=== PATIENT | female | born 1935 | race Caucasian/White ===

== ENCOUNTER → 2019-03-03 | Outpatient (CLI) | payer MEDICARE ==
--- NOTE | 2019-03-03 12:48 | Diagnostic Imaging Report ---
INDICATION: Right hip pain. TIME OF EXAMINATION: 11:13 AM. TECHNIQUE: Two views of the right hip were obtained. FINDINGS: The femoroacetabular alignment is normal. The femoral head and neck are intact. No fractures are seen. IMPRESSION: No acute bony abnormality is detected. Dictated by: Dictated on workstation # [id number]
--- NOTE | 2019-03-03 15:15 | Diagnostic Imaging Report ---
INDICATION: Chronic left knee pain. TIME OF EXAMINATION: 11:15 AM. TECHNIQUE: Multiple views of the left knee were obtained. FINDINGS: Tricompartmental degenerative changes are noted. There is joint space narrowing and marginal spurring. No fracture or dislocation is seen. There is no effusion. IMPRESSION: Tricompartmental degenerative change. No acute bony abnormality is detected. Dictated by: Dictated on workstation # [id number]
== END ==
LOC: RAD FS 11:00
PROVIDERS: ATTEND Nurse Practitioner
DX: M17.12 Unilateral primary osteoarthritis, left knee (principal); M25.551 Pain in right hip
CPT/HCPCS: 73502; 73562

== ENCOUNTER → 2019-04-04 | Outpatient (CLI) | payer MEDICARE ==
--- NOTE | 2019-04-04 15:43 | Diagnostic Imaging Report ---
INDICATION: Chronic left hip pain. Time of exam 2:06 p.m. FINDINGS: Multiple views of the left hip show normal femoral acetabular alignment. Joint spaces are well-maintained. The femoral head and neck appear to be intact. No fractures are seen. IMPRESSION: No acute bony abnormality is detected. Dictated by: Dictated on workstation # [id number]
== END ==
LOC: RAD FS 13:53
PROVIDERS: ATTEND Nurse Practitioner
DX: M16.12 Unilateral primary osteoarthritis, left hip (principal)
CPT/HCPCS: 73502

== ENCOUNTER 2020-04-30 08:18 | Emergency (ER) | payer MEDICARE ==
[~2020-04-30] VITALS: Ht 167.7 cm; Wt 90.0 kg
--- NOTE | 2020-04-30 08:18 | NUR ---
PT ARRIVAL TO ED SEE TRIAGE NOTES. PT AROUSES TO NAME WITH EYE OPENING. PT IS [place].
--- NOTE | 2020-04-30 08:25 | ED General ---
General Stated Complaint: HYPOXIA Source of Information: EMS History of Present Illness Date Seen by Provider: Apr 30, 2020 Time Seen by Provider: 08:24 Initial Comments Patient is brought to the emergency department by EMS from the senior living where she stays. She was reportedly found by senior living staff to be hypoxic and not wearing her oxygen. Her oxygen level was reported to be 65%. On arrival to the ER, there is little additional history available. Patient is awake and alert but not answering questions. She seems to have some abdominal distention and tenderness to palpation on physical exam. She also has reports of recent GI bleeding from senior living staff. Allergies and Home Medications Allergies Coded Allergies: Sulfa (Sulfonamide Antibiotics) (Verified Allergy, Unknown, 04/30/20) Patient Home Medication List Home Medication List Reviewed: Yes Review of Systems Review of Systems Constitutional: no symptoms reported EENTM: no symptoms reported Respiratory: no symptoms reported Cardiovascular: no symptoms reported Genitourinary: no symptoms reported Musculoskeletal: no symptoms reported Skin: no symptoms reported Psychiatric/Neurological: No Symptoms Reported Hematologic/Lymphatic: No Symptoms Reported All Other Systems Reviewed Negative Unless Noted: Yes Physical Exam Vital Signs Vital Signs - First Documented 04/30/20 08:18 Temp 40.3 Pulse 125 Resp 28 B/P (MAP) 177/86 (116) Pulse Ox 79 O2 Delivery Non Rebreather O2 Flow Rate 15.00 Capillary Refill : Height, Weight, BMI Height: '" Weight: lbs. oz. kg; BMI Method: General Appearance: Other (patient is awake, she is anxious and tachypnea With mild increased work of breathing) HEENT: PERRL/EOMI Neck: Supple Respiratory: Other (few scattered wheezes in lower lung erickson but overall good air movement) Cardiovascular: Normal Peripheral Pulses, Other (irregular tachycardic rhythm) Gastrointestinal: Other (abdomen is firm and tender to palpation) Rectal: Other (brown stool is present. No local infection is seen in the groin or perineum. Patient is guaiac positive for blood but no red blood is seen) Back: Normal Inspection Extremity: Normal Capillary Refill, Other (1-2+ edema bilateral lower extremities. Equal pulses bilaterally.) Neurologic/Psychiatric: Alert, No Motor/Sensory Deficits (alert and answering some questions. Does not answer orientation questions. Protecting airway. No facial asymmetry. Moving all extremities.) Skin: Warm/Dry Focused Exam Lactate Level 04/30/20 08:30: Lactic Acid Level 3.32*H 04/30/20 10:20: Lactic Acid Level 1.38 Lactic Acid Level Laboratory Tests Test 04/30/20 10:20 Lactic Acid Level 1.38 MMOL/L (0.50-2.00) Progress/Results/Core Measures Suspected Sepsis SIRS Temperature: Pulse: Respiratory Rate: Laboratory Tests 04/30/20 08:30: White Blood Count 9.9 Blood Pressure / Mean: 04/30/20 08:30: Lactic Acid Level 3.32*H 04/30/20 10:20: Lactic Acid Level 1.38 Laboratory Tests 04/30/20 08:30: Creatinine 0.80, INR Comment 2.3H, Platelet Count 273, Total Bilirubin 0.7 Results/Orders Lab Results Laboratory Tests Test 04/30/20 08:30 04/30/20 08:45 04/30/20 10:20 Range/Units White Blood Count 9.9 4.3-11.0 10^3/uL Red Blood Count 4.23 L 4.35-5.85 10^6/uL Hemoglobin 11.3 L 11.5-16.0 G/DL Hematocrit 39 35-52 % Mean Corpuscular Volume 92 80-99 FL Mean Corpuscular Hemoglobin 27 25-34 PG Mean Corpuscular Hemoglobin Concent 29 L 32-36 G/DL Red Cell Distribution Width 17.1 H 10.0-14.5 % Platelet Count 273 130-400 10^3/uL Mean Platelet Volume 8.7 7.4-10.4 FL Neutrophils (%) (Auto) 85 H 42-75 % Lymphocytes (%) (Auto) 112 H 12-44 % Monocytes (%) (Auto) 1 0-12 % Eosinophils (%) (Auto) 1 0-10 % Basophils (%) (Auto) 0 0-10 % Neutrophils # (Auto) 8.4 H 1.8-7.8 X 10^3 Lymphocytes # (Auto) 1.2 1.0-4.0 X 10^3 Monocytes # (Auto) 0.1 0.0-1.0 X 10^3 Eosinophils # (Auto) 0.1 0.0-0.3 10^3/uL Basophils # (Auto) 0.0 0.0-0.1 10^3/uL Prothrombin Time 25.3 H 12.2-14.7 SEC INR Comment 2.3 H 0.8-1.4 Activated Partial Thromboplast Time 32 24-35 SEC Sodium Level 142 135-145 MMOL/L Potassium Level 4.3 3.6-5.0 MMOL/L Chloride Level 95 L 98-107 MMOL/L Carbon Dioxide Level 35 H 21-32 MMOL/L Anion Gap 12 5-14 MMOL/L Blood Urea Nitrogen 15 7-18 MG/DL Creatinine 0.80 0.60-1.30 MG/DL Estimat Glomerular Filtration Rate > 60 BUN/Creatinine Ratio 19 Glucose Level 135 H 70-105 MG/DL Lactic Acid Level 3.32 *H 1.38 0.50-2.00 MMOL/L Calcium Level 10.0 8.5-10.1 MG/DL Corrected Calcium 9.7 8.5-10.1 MG/DL Total Bilirubin 0.7 0.1-1.0 MG/DL Aspartate Amino Transf (AST/SGOT) 29 5-34 U/L Alanine Aminotransferase (ALT/SGPT) 21 0-55 U/L Alkaline Phosphatase 69 40-136 U/L Troponin I < 0.30 <0.30 NG/ML Pro-B-Type Natriuretic Peptide 2921.0 H <75.0 PG/ML Total Protein 7.7 6.4-8.2 GM/DL Albumin 4.4 3.2-4.5 GM/DL Urine Color BROWN H Urine Clarity CLOUDY Urine pH 7.5 5-9 Urine Specific Chloe 1.020 1.016-1.022 Urine Protein 3+ H NEGATIVE Urine Glucose (UA) NEGATIVE NEGATIVE Urine Ketones NEGATIVE NEGATIVE Urine Nitrite POSITIVE H NEGATIVE Urine Bilirubin 1+ H NEGATIVE Urine Urobilinogen 0.2 < = 1.0 MG/DL Urine Leukocyte Esterase 2+ H NEGATIVE Urine RBC (Auto) 3+ H NEGATIVE Urine RBC TNTC H /HPF Urine WBC 10-25 H /HPF Urine Crystals NONE /LPF Urine Bacteria MODERATE H /HPF Urine Casts NONE /LPF Urine Mucus NEGATIVE /LPF Urine Culture Indicated YES My Orders Orders - DEBBIE BEE DO Ed Iv/Invasive Line Start (04/30/20 08:25) Cbc With Automated Diff (04/30/20 08:25) Comprehensive Metabolic Panel (04/30/20 08:25) Lactic Acid Analyzer (04/30/20 08:25) Troponin I Fs (04/30/20 08:25) Probnp Fs (04/30/20 08:25) Protime With Inr (04/30/20 08:25) Partial Thromboplastin Time (04/30/20 08:25) Urinalysis (04/30/20 08:28) Corral Cath (04/30/20 08:28) Ct Head Wo (04/30/20 08:28) Ct Abdomen/Pelvis W (04/30/20 08:28) Blood Culture (04/30/20 08:30) Blood Culture (04/30/20 08:30) Procalcitonin (Pct) (04/30/20 08:30) Ns Iv 1000 Ml (Sodium Chloride 0.9%) (04/30/20 08:45) Acetaminophen Suppository (Tylenol Suppo (04/30/20 08:45) Coronavirus Sars-Cov-2 So 2018 (04/30/20 08:44) Albuterol/Ipra Inhalation Soln (Duoneb I (04/30/20 09:00) Svn Small Volume Nebulizer (04/30/20 08:51) Chest 1 View Ap/Pa Only (04/30/20 08:59) Iohexol Injection (Omnipaque 350 Mg/Ml 1 (04/30/20 09:15) Received Contrast (Hold Metformin- Contr (04/30/20 09:15) Sodium Chloride Flush (Catheter Flush Sy (04/30/20 09:15) Ns (Ivpb) (Sodium Chloride 0.9% Ivpb Bag (04/30/20 09:15) Urine Culture (04/30/20 08:45) Ketorolac Injection (Toradol Injection) (04/30/20 09:30) Ns Iv 1000 Ml (Sodium Chloride 0.9%) (04/30/20 09:30) Ceftriaxone For Iv Use (Rocephin For I (04/30/20 09:45) Vancomycin Injection (Vancomycin Injecti (04/30/20 10:45) Piperacillin Sodium/Tazobactam (Zosyn Vi (04/30/20 10:45) Furosemide Injection (Lasix Injection) (04/30/20 10:45) Ns Iv 1000 Ml (Sodium Chloride 0.9%) (04/30/20 11:30) Ns Iv 500 Ml (Sodium Chloride 0.9%) (04/30/20 12:15) Norepinephrine 4 Mg/250 Ml (Norepinephri (04/30/20 12:15) Medications Given in ED Current Medications Medications Dose Ordered Sig/Rudi Route Start Time Stop Time Status Last Admin Dose Admin Acetaminophen 975 mg ONCE ONCE [place] 04/30/20 08:45 04/30/20 08:46 DC 04/30/20 08:44 975 MG Albuterol/ Ipratropium 3 ml ONCE ONCE INH 04/30/20 09:00 04/30/20 09:01 DC 04/30/20 10:01 3 ML Ceftriaxone Sodium 2000 mg/ Sterile Water 20 ml @ 240 mls/hr ONCE ONCE IV 04/30/20 09:45 04/30/20 09:49 DC 04/30/20 10:01 240 MLS/HR Furosemide 40 mg ONCE ONCE IVP 04/30/20 10:45 04/30/20 10:46 DC 04/30/20 11:26 40 MG Iohexol 100 ml ONCE ONCE IV 04/30/20 09:15 04/30/20 09:16 DC 04/30/20 09:49 100 ML Ketorolac Tromethamine 15 mg ONCE ONCE IVP 04/30/20 09:30 04/30/20 09:31 DC 04/30/20 10:01 15 MG Piperacillin Sod/ Tazobactam Sod 4.5 gm/Sodium Chloride 100 ml @ 200 mls/hr ONCE ONCE IV 04/30/20 10:45 04/30/20 11:14 DC 04/30/20 11:15 200 MLS/HR Sodium Chloride 10 ml NEEDED PRN IV 04/30/20 09:15 04/30/20 09:49 10 ML Sodium Chloride 100 ml ONCE ONCE IV 04/30/20 09:15 04/30/20 09:16 DC 04/30/20 09:49 100 ML Vancomycin HCl 1500 mg/Sodium Chloride 500 ml @ 257.5 mls/ hr ONCE ONCE IV 04/30/20 10:45 04/30/20 12:41 DC 04/30/20 11:16 257.5 MLS/HR Vital Signs/I&O 04/30/20 04/30/20 04/30/20 04/30/20 08:18 08:44 10:15 11:45 Temp 40.3 40.3 39.1 39.6 Pulse 125 Resp 28 B/P (MAP) 177/86 (116) Pulse Ox 79 O2 Delivery Non Rebreather O2 Flow Rate 15.00 04/30/20 12:35 Pulse 113 B/P (MAP) 84/40 Capillary Refill : Progress Note : Time: 09:02 Progress Note Patient is seen and examined on arrival to her room. Patient is somewhat confused but does answer simple yes no questions. She is protecting her airway. She has mild increased work of breathing. Her abdomen is tender to palpation. Rectal temperature is performed and she has temperature over 104. Sepsis is suspected as cause for presentation. Patient is ordered and have 2 IVs and immediately IV fluid resuscitation. Will Pl[address] Corral catheter to collect urine and chest x-ray. Heart rate is atrial fibrillation which she is known to have wi th a rate in the 120s. We'll check PT/INR. 10:00: Patient now returns from CT scan. She is more awake and alert. She is answering questions appropriately. Rigors are resolving. Heart rate averaging 108 in atrial fibrillation. Much improved. Denies pain. Additional hx now available from her daughter via telephone. Patient had been baseline health until about a week ago. Her daughter reports that she had a urine test done at that time which was reportedly negative. She had been complaining to her daughte r that she noticed streaking of blood on tissue after she would wipe. She had also recently had increase in oxygen therapy at home as she had been having some hypoxia or worsening dyspnea. Today, she was found to have change in mental status by nursing staff. Patient is currently much improved. Her temperature is down to 102.5. She is awake and answering questions appropriately. IV fluids are continued. I discussed the need for admission with the patient. Also with her daughter. They initially request to be transferred to [facility]. I contacted the transfer center at that hospital but there are no beds available. Following t hat, her family requested that she go to [facility] in [place] but they also have no beds available. Following this, daughter request transferred to [facility]. I contacted the transfer line at 10:15 AM. 11:20: Patient is accepted for transfer to [facility] by Dr. Macias. Room assignment is received. Patient is currently doing very well. She is sleeping but awakens easily and answers questions appropriate. Heart rate is 108. Temperature is still trending down. She is agreeable to the transfer plan of care as is her daughter. Patient is given some Lasix. IV fluids are continued for goal bolus of 30 mL/kg. CT scan of the abdomen is completely and notable for hydronephrosis on the right but no stone. Also questionable ureteral mass. These findings were discussed with the receiving facility. Incidentally, bilateral basilar infiltrates were noted on CT imaging which were not present on chest x- ray. Vancomycin and Zosyn are ordered with this new finding. Patient is stable for transfer to . 11:45: Rectal temperature now down to 101. Patient awakes and answers questions appropriately. Again, she appears much improved. She has brisk capillary refill. She does not currently have any complaints. It is noted, however, that her blood pressure has trended downward. She is currently 87/45. Her heart rate is 106. She has had 2 L of normal saline bolus. She is receiving vancomycin currently in an additional 500 mls of fluid. She is also receiving Zosyn and a 100 ml bag. Her goal fluid resuscitation is 2700 mL for a 90 kg weight. Will observe her blood pressure closely. Although her pressure is trending downward, she is clinically doing much better. 12:50: Up-to-date: Despite that patient clinically appears much improved, she has had declining blood pressures. Ranging from low 80s to 90s over the last hour. Decision was made to place patient on levothyroid drip. I notified [facility] and patient was moved from telemetry to ICU bed. Accepting physician was Dr. Bishop. After David fed started at lowest dose, blood pressure now averaging in the low 100s systolic. Patient is stable for transfer. EMS is present ECG Initial ECG Impression Date: Apr 30, 2020 Initial ECG Impression Time: 09:03 Initial ECG Rate: 130 Initial ECG Rhythm: A Fib/Flutter Initial ECG Impression: Atrial Fibrillation, Atrial Fibrillation w/RVR Departure Impression Primary Impression: Pneumonia Additional Impressions: Sepsis Urinary tract infection Disposition: XF [facility] Condition: Improved Transfer Transfer Reason: Patient preference Time Spoke to Accepting Phy: 10:[address] Macias at [facility] Dr. Bishop Transfer Time: 12:00 Transfer Facility: [facility] Method of Transfer: EMS Departure-Patient Inst. Referrals: [facility] (PCP) Primary Care Physician CHUN AARON (Family) Primary Care Physician DEBBIE BEE DO Apr 30, 2020 08:25
[2020-04-30 08:45] LABS: BASOPHILS % (AUTO) 0 % (0-10); EOSINOPHILS # (AUTO) 0.1 10^3/uL (0.0-0.3); EOSINOPHILS % (AUTO) 1 % (0-10); HEMATOCRIT 39 % (35-52); HEMOGLOBIN 11.3 G/DL (11.5-16.0); LYMPHOCYTES # (AUTO) 1.2 X 10^3 (1.0-4.0); LYMPHOCYTES % (AUTO) 112 % (12-44); MEAN CORPUSCULAR HEMOGLOBIN 27 PG (25-34); MEAN CORPUSCULAR HGB CONC 29 G/DL (32-36); MEAN CORPUSCULAR VOLUME 92 FL (80-99); MEAN PLATELET VOLUME 8.7 FL (7.4-10.4); MONOCYTES # (AUTO) 0.1 X 10^3 (0.0-1.0); MONOCYTES % (AUTO) 1 % (0-12); NEUTROPHILS # (AUTO) 8.4 X 10^3 (1.8-7.8); NEUTROPHILS % (AUTO) 85 % (42-75); PLATELET COUNT 273 10^3/uL (130-400); WHITE BLOOD COUNT 9.9 10^3/uL (4.3-11.0)
[2020-04-30] MEDS ORDERED: NS IV 1000 ML 1,000 ML IV SCH ×2 (08:45→09:30)
[2020-04-30] MEDS ORDERED: ACETAMINOPHEN 650 MG SUPP (TYLENOL) PR ONE (08:45)
[2020-04-30 08:56] LABS: INR 2.3 (0.8-1.4); PROTHROMBIN TIME PATIENT 25.3 SEC (12.2-14.7)
[2020-04-30] MEDS ORDERED: RT-ALBUTEROL/IPRATROPIUM 3 ML (DUONEB) VIAL INH ONE (09:00)
[2020-04-30 09:12] LABS: ALANINE AMINOTRANSFERASE 21 U/L (0-55); ALKALINE PHOSPHATASE 69 U/L (40-136); BILIRUBIN,TOTAL 0.7 MG/DL (0.1-1.0); BUN/CREATININE RATIO 19; CARBON DIOXIDE 35 MMOL/L (21-32); CHLORIDE 95 MMOL/L (98-107); GFR ESTIMATED > 60; GLUCOSE 135 MG/DL (70-105); POTASSIUM 4.3 MMOL/L (3.6-5.0); SODIUM 142 MMOL/L (135-145)
[2020-04-30 09:13] LABS: ALBUMIN 4.4 GM/DL (3.2-4.5); TOTAL PROTEIN 7.7 GM/DL (6.4-8.2)
[2020-04-30] MEDS ORDERED: CATHETER FLUSH 10 ML SYR IV PRN (09:15)
[2020-04-30] MEDS ORDERED: NS 100 ML (IVPB) BAG IV ONE (09:15)
[2020-04-30] MEDS ORDERED: IOHEXOL 350 MG/ML 100 ML (OMNIPAQUE 350) VIAL IV ONE (09:15)
[2020-04-30] MEDS ORDERED: HOLD METFORMIN - RECEIVED CONTRAST 20 ML VIAL IV SCH (09:15)
[2020-04-30 09:17] LABS: CLARITY,URINE CLOUDY; COLOR,URINE BROWN; GLUCOSE, URINE (UA) NEGATIVE (NEGATIVE); KETONES,URINE NEGATIVE (NEGATIVE); NITRITE,URINE POSITIVE (NEGATIVE); PH,URINE 7.5 (5-9); PROTEIN,URINE 3+ (NEGATIVE)
[2020-04-30 09:18] LABS: BACTERIA,URINE MODERATE /HPF; BILIRUBIN,URINE 1+ (NEGATIVE); LEUKOCYTE ESTERASE ,URINE 2+ (NEGATIVE); RBC,URINE TNTC /HPF
[2020-04-30] MEDS ORDERED: cefTRIAXone FOR IV USE 1,000 MG in WATER (STERILE) FOR INJECTION 10 ML IV ONE (09:30)
[2020-04-30] MEDS ORDERED: KETOROLAC 30 MG/ML VIAL IVP ONE (09:30)
[2020-04-30] MEDS ORDERED: cefTRIAXone FOR IV USE 2,000 MG in WATER (STERILE) FOR INJECTION 20 ML IV ONE (09:45)
--- NOTE | 2020-04-30 09:56 | Diagnostic Imaging Report ---
PROCEDURE: CT head without contrast. TECHNIQUE: Multiple contiguous axial images were obtained through the brain without the use of intravenous contrast. Auto Exposure Controls were utilized during the CT exam to meet ALARA standards for radiation dose reduction. INDICATION: Altered mental status FINDINGS: There is prominence of the ventricles and sulci. There is no hydrocephalus or cerebral edema. There is no midline shift or mass-effect. There is no intracranial mass, hemorrhage, or extra-axial fluid collection. There is some diffuse decreased attenuation of the periventricular white matter which is nonspecific. The visualized paranasal sinuses and mastoid air cells are clear. There are no regional areas of decreased attenuation appreciated to suggest an acute CVA. IMPRESSION: 1. No acute intracranial process. 2. Age-appropriate atrophy. 3. Decreased attenuation of the periventricular white matter which is nonspecific, however, likely reflects senescent change and/or chronic small vessel ischemic disease. Dictated by: Dictated on workstation # [id number]
--- NOTE | 2020-04-30 10:00 | NUR ---
SPEAKING WITH FAMILY VIA PHONE, NUMEROUS CALLS FROM FAMILY WITH REPORT GIVEN AT THIS TIME. UPDATE WAS GIVEN EARLIER BY ANCILLARY STAFF OF RN'S BUSY AND PT GETTING LABS, XRAYS, AND CT. THE DGT WANTS TO GIVE DETAILED PAST MEDICAL HX AND 2 RN'S WERE UNAVAILABLE TO COME TO PHONE ER BUSY. FAMILY REPORT ADAMANT TO SPEAK AND WILL WAIT FOR THIS RETURN CALL. VERBALIZATION OF DISSATISFACTION OF NO FAMILY PRESENCE IN ER'S. THE INABILITY TO SIT IN A WAITING ROOM, AND THE REFUSAL OF VISITORS TO ENTER BUILDING TO TRY TO USE A BATHROOM.
--- NOTE | 2020-04-30 10:24 | Diagnostic Imaging Report ---
PROCEDURE: CT abdomen and pelvis with contrast. TECHNIQUE: Multiple contiguous axial images were obtained through the abdomen and pelvis after administration of intravenous contrast. Auto Exposure Controls were utilized during the CT exam to meet ALARA standards for radiation dose reduction. INDICATION: Hematuria, sepsis, hypoxia FINDINGS: There is cardiomegaly. There are patchy bibasal infiltrates. The liver is normal in size without focal lesions. Gallbladder is unremarkable. There is no biliary ductal dilatation. Spleen is normal. The pancreas and adrenal glands are unremarkable. Right kidney is normal. There is severe left hydronephrosis. No definite stone is appreciated. There is a filter in the IVC. Aorta is nonaneurysmal. The bowel gas pattern is nonspecific. There is diverticular disease. There is a Corral catheter in the bladder. There is no free air. There is no ascites. There are no focal inflammatory changes. There are degenerative changes in the spine. IMPRESSION: Severe left hydronephrosis without evidence of underlying stone. Possibility of a ureteral mass certainly cannot be excluded. Recommend clinical correlation. Diverticular disease without evidence of diverticulitis. Patchy bibasal pulmonary infiltrates. Cardiomegaly. Severe degenerative changes in the lumbar spine. Dictated by: Dictated on workstation # [id number]
--- NOTE | 2020-04-30 10:25 | Diagnostic Imaging Report ---
INDICATION: Fever and sepsis. FINDINGS: There is cardiomegaly. There is mild venous congestion. There is a small left pleural effusion. There is no pneumothorax. The mediastinum is unremarkable. IMPRESSION: Cardiomegaly and mild venous congestion with small left pleural effusion. Dictated by: Dictated on workstation # [id number]
[2020-04-30] MEDS ORDERED: FUROSEMIDE 40 MG/4 ML INJ (LASIX) IVP ONE (10:45)
[2020-04-30] MEDS ORDERED: VANCOMYCIN INJECTION 1,500 MG in NS IV 500 ML 500 ML IV ONE (10:45)
[2020-04-30] MEDS ORDERED: PIPERACILLIN SODIUM/TAZOBACTAM 4.5 GM in NS (IVPB) 100 ML IV ONE (10:45)
--- NOTE | 2020-04-30 10:45 | NUR ---
PT ENDED 2ND BOLUS AND NIBP NOTED TRENDING DOWN. NOTIFIED
--- NOTE | 2020-04-30 11:40 | NUR ---
KEBEDE EMPTIED OF 125 ML URINE PRE-LASIX
--- NOTE | 2020-04-30 12:00 | NUR ---
EMS HERE, DR BEE INTO WITH RN. NIBP PERSISTANT HYPOTESIVE WITH PT ASYMPTOMATIC.
--- NOTE | 2020-04-30 12:10 | NUR ---
EMS DIVERTED TO BEING STILL [employer] BUT CHANGE OF STABILIZATION PLAN AND NEED TO CONTACT [facility] FOR HIGHTER LEVEL INTENSITY.
[2020-04-30] MEDS ORDERED: NS IV 500 ML 500 ML IV SCH (12:15)
[2020-04-30] MEDS ORDERED: NOREPINEPHRINE 4 MG/250 ML 250 ML IV SCH (12:15)
--- NOTE | 2020-04-30 12:30 | NUR ---
CALL COMPLETED WITH DR TO [facility] TO NOTIFY PLAN OF HANGING LEVOPHED FOR HYPOTENSION POST FLUID BOLUSES AND WITH ANTIBIOTIC REGIMEN AND RN STARTING A 3RD IV BIGGER BORE MORE CENTRALLY TO RUN THE LEVOPHED PERIPHERALLY TEMPROARILY. 18 GA TO LAC. CALL CENTER RE-ROUTED DR TO A DIFFERENT HOSPITALIST FOR ADMISSION PLAN TO ICU LEVEL AND ICU BED NUMBER BEING GIVEN [facility] WANTING PT SOON POSSIBLE.
[2020-04-30] MEDS: NS IV 1000 ML 1,000 ML IV SCH (12:34)
--- NOTE | 2020-04-30 12:50 | NUR ---
EMS ARRIVING FOR TRANSFER
--- NOTE | 2020-04-30 12:50 | NUR ---
SPOKE WITH PT'S DPOA DGTS: SUDEEP LOPEZ AND MARIE NAYAK. UPDATE GIVEN ABOUT CHANGE IN VITALS WITH HYPOTENSIVE BUT STABILZING SAO2 READINGS. PT IS MORE ALERT NOW. KEBEDE PATENT WITH LOW OUTPUT POST BOLUSES. EXPLAINED CHANGE TO AN ICU BED AND DIVERTING EMS UNTIL [facility] REPORTED NEW RM PLACEMENT FOR ICU. HAD DGTS COME TO REGISTRATION TO WEB SPECIALIST 3 RINGS, LIFE ALERT BUTTON, PA EARRINGS, AND CLOTHING. LEFT PT'S COMPRESSION SOCKS ON AND HER GLASSES WITH PT GOWN. KEBEDE IS IN PLACE.
[2020-04-30 13:05] VITALS: BP 142/54
--- NOTE | 2020-04-30 13:05 | NUR ---
DEPARTING AT THIS TIME TO [facility] VIA [facility], MICT PRESENT FOR THIS ALS TRANSFER WITH LEVOPHED AND VANCOMYCIN INFUSION WITH NS INFUSING AT 150/HR WITH LEVOPHED LINE. PT HAS DGTS APPROACHING AMBULANCE THEY LOAD PT TO SEE HER AND CONVEY THEIR MESSAGES.
== END 2020-04-30 13:05 | disposition short-term general hospital (02) ==
LOC: EDUNIT# 08:21 → ER FS 08:22
DX: J18.9 Pneumonia, unspecified organism (principal); N39.0 Urinary tract infection, site not specified; A41.9 Sepsis, unspecified organism; F41.9 Anxiety disorder, unspecified; Z88.2 Allergy status to sulfonamides; Z20.828 Contact with and (suspected) exposure to other viral communicable diseases
CPT/HCPCS: 36415; 51702; 70450; 71045; 74177; 80053; 81000; 83605; 83880; 84145; 84484; 85025; 85610; 85730; 87040; 87088; 94640; 99292; U0002; 87077; 87635; 99291

== ENCOUNTER → 2020-08-16 | Outpatient (CLI) | payer MEDICARE ==
[~2020-08-16] VITALS: Ht 163 cm; Wt 80.0 kg
[~2020-08-16] MED LIST: BAMLANIVIMAB 700 MG in NS 200 ML IV ONE; EPINEPHrine INJECTION 1 MG/ML AMP IM PRN; diphenhydrAMINE 50 MG/ML INJ (BENADRYL) IV PRN
[2020-08-16 08:30] VITALS: BP 163/84
[2020-08-16 11:00] VITALS: BP 136/76
== END ==
LOC: INFUSION 08:32
PROVIDERS: ATTEND Family Medicine
DX: U07.1 COVID-19 (principal)

== ENCOUNTER 2021-01-03 10:19 | Inpatient (IN) | payer MEDICARE ==
[~2021-01-03] VITALS: Ht 162.5 cm; Wt 80.5 kg
--- NOTE | 2021-01-03 10:38 | ED General ---
General Stated Complaint: ABD PAIN Source of Information: Patient, EMS, Long Term Records History of Present Illness Date Seen by Provider: January 03, 2021 Time Seen by Provider: 10:21 Initial Comments 85-year-old female presenting with complaints of cough and shortness of breath. EMS brought her from [facility] after having been called for abdominal pain. Patient denies any abdominal or chest pain. She states that she has been coughing and is more short of breath. She was hypoxic for EMS and required O2 by nonrebreather to help bring her up above 90%. She does have chronic atrial fibrillation and is on warfarin. She has tremors and chills. She is not answering all questions appropriately. She is only oriented to self. She thinks that she is in [place] and not [place]. She did get her second Covid shot yesterday. The [facility] was not sure which brand of Covid shot it was. Associated Systoms: No Chest Pain; Cough; No Diaphoresis; Fever/Chills; No H eadaches; Loss of Appetite, Malaise; No Nausea/Vomiting, No Rash, No Seizure; Shortness of Air, Weakness (general) Allergies and Home Medications Allergies Coded Allergies: Sulfa (Sulfonamide Antibiotics) (Verified Allergy, Unknown, 04/30/20) Patient Home Medication List Home Medication List Reviewed: Yes Review of Systems Review of Systems Constitutional: chills; No diaphoresis; fever (37.7 C on arrival), malaise, weakness EENTM: no symptoms reported Respiratory: cough; No phlegm; short of breath Cardiovascular: No chest pain Gastrointestinal: No abdominal pain, No nausea, No vomiting Genitourinary: dysuria Musculoskeletal: no symptoms reported Skin: no symptoms reported Psychiatric/Neurological: Denies Headache; Weakness (general) Hematologic/Lymphatic: Denies Blood Clots Immunological/Allergic: no symptoms reported Past Bwzthnn-Isjsvt-Qzfqoa Hx Past Med/Social Hx: Reviewed Nursing Past Med/Soc Hx Patient Social History Recent Hopitalizations: No Seasonal Allergies Seasonal Allergies: No Past Medical History Surgeries: Yes (poor historian) Respiratory: Yes (chronic hypoxia (requires high flow O2)) Atrial Fibrillation, Deep Vein Thrombosis, Hypertension Neurological: No Genitourinary: Yes (Hx Urosepsis) UTI-Chronic Musculoskeletal: Yes (On Xeljanz and Prednisone (off IV txs thru COVID)) Rheumatoid Arthritis Endocrine: Yes Hypothyroidsim HEENT: No Cancer: No Psychosocial: No Blood Disorders: No Physical Exam Vital Signs Vital Signs - First Documented Capillary Refill : Height, Weight, BMI Height: '" Weight: lbs. oz. kg; 32.00 BMI Method: General Appearance: Anxious, Moderate Distress, Other (diffuse tremors) HEENT: No Moist Mucous Membranes (dry mucus membranes) Respiratory: Chest Non Tender, Accessory Muscle Use, Crackles, Decreased Breath Sounds, Respiratory Distress; No Stridor, No Wheezing Cardiovascular: Irregularly Irregular, Tachycardia Gastrointestinal: Normal Bowel Sounds, No Pulsatile Mass, Non Tender, Soft Rectal: Deferred Extremity: Normal Capillary Refill, Pedal Edema (1+ BLE pedal edema) Neurologic/Psychiatric: Alert; No Oriented x3 (oriented to self only); oracle database manager II- XII Norm as Tested Skin: Normal Color, Warm/Dry Lymphatic: No Adenopathy Focused Exam Sepsis Stage: Sepsis Possible Source: Genitouriary Lactate Level 01/03/21 10:35: Lactic Acid Level 2.90*H 01/03/21 11:24: Lactic Acid Level 1.89 Time of Focused Exam: 12:45 Respiratory: Chest Non Tender, No Accessory Muscle Use, No Respiratory Distress, Decreased Breath Sounds Cardiovascular: Normal Peripheral Pulses, Irregularly Irregular; No Tachycardia Capillary Refill: Less Than 3 Seconds Peripheral Pulses: 2+ Radial Pulses (R), 2+ Radial Pulses (L) Skin: normal color, warm/dry Lactic Acid Level Laboratory Tests Test 01/03/21 10:35 01/03/21 11:24 Lactic Acid Level 2.90 MMOL/L (0.50-2.00) *H 1.89 MMOL/L (0.50-2.00) Within 3hrs of presentation: Admin ABX, Blood cultures prior to ABX's, Focus exam, Lactate level, Other (aggressive fluids held due to signs of failure on CXR and edema on BLE) Progress/Results/Core Measures Suspected Sepsis SIRS Temperature: Pulse: Respiratory Rate: Laboratory Tests 01/03/21 10:35: White Blood Count 4.7 Blood Pressure / Mean: 01/03/21 10:35: Lactic Acid Level 2.90*H 01/03/21 11:24: Lactic Acid Level 1.89 Laboratory Tests 01/03/21 10:35: Creatinine 0.92, INR Comment 2.6H, Platelet Count 328, Total Bilirubin 0.7 Results/Orders Lab Results Laboratory Tests Test 01/03/21 10:35 01/03/21 11:13 01/03/21 11:24 Range/Units White Blood Count 4.7 4.3-11.0 10^3/uL Red Blood Count 3.86 L 4.35-5.85 10^6/uL Hemoglobin 10.6 L 11.5-16.0 G/DL Hematocrit 37 35-52 % Mean Corpuscular Volume 98 80-99 FL Mean Corpuscular Hemoglobin 28 25-34 PG Mean Corpuscular Hemoglobin Concent 28 L 32-36 G/DL Red Cell Distribution Width 17.8 H 10.0-14.5 % Platelet Count 328 130-400 10^3/uL Mean Platelet Volume 8.9 7.4-10.4 FL Immature Granulocyte % (Auto) 0 % Neutrophils (%) (Auto) 77 H 42-75 % Lymphocytes (%) (Auto) 18 12-44 % Monocytes (%) (Auto) 3 0-12 % Eosinophils (%) (Auto) 1 0-10 % Basophils (%) (Auto) 0 0-10 % Neutrophils # (Auto) 3.6 1.8-7.8 X 10^3 Lymphocytes # (Auto) 0.8 L 1.0-4.0 X 10^3 Monocytes # (Auto) 0.2 0.0-1.0 X 10^3 Eosinophils # (Auto) 0.1 0.0-0.3 10^3/uL Basophils # (Auto) 0.0 0.0-0.1 10^3/uL Immature Granulocyte # (Auto) 0.0 0.0-0.1 10^3/uL Percent Immature Platelet Fraction 1.7 0.0-7.6 % Prothrombin Time 27.7 H 12.2-14.7 SEC INR Comment 2.6 H 0.8-1.4 Activated Partial Thromboplast Time 31 24-35 SEC D-Dimer 1.53 H 0.00-0.49 UG/ML Blood Gas Puncture Site RT RADIAL Blood Gas Patient Temperature 37.7 Arterial Blood pH 7.31 *L 7.37-7.43 Arterial Blood Partial Pressure CO2 86 *H 35-45 MMHG Arterial Blood Partial Pressure O2 79 79-93 MMHG Arterial Blood HCO3 43 *H 23-27 MMOL/L Arterial Blood Total CO2 45.9 H 21.0-31.0 MMOL/L Arterial Blood Oxygen Saturation 94 94-100 % Arterial Blood Base Excess 13.4 H -2.5-2.5 MMOL/L Octavio Test OK Blood Gas Ventilator Setting NO Blood Gas Inspired Oxygen 15 L Sodium Level 145 135-145 MMOL/L Potassium Level 4.7 3.6-5.0 MMOL/L Chloride Level 96 L 98-107 MMOL/L Carbon Dioxide Level 40 H 21-32 MMOL/L Anion Gap 9 5-14 MMOL/L Blood Urea Nitrogen 17 7-18 MG/DL Creatinine 0.92 0.60-1.30 MG/DL Estimat Glomerular Filtration Rate 58 BUN/Creatinine Ratio 18 Glucose Level 130 H 70-105 MG/DL Lactic Acid Level 2.90 *H 1.89 0.50-2.00 MMOL/L Calcium Level 10.1 8.5-10.1 MG/DL Corrected Calcium 9.7 8.5-10.1 MG/DL Total Bilirubin 0.7 0.1-1.0 MG/DL Aspartate Amino Transf (AST/SGOT) 28 5-34 U/L Alanine Aminotransferase (ALT/SGPT) 15 0-55 U/L Alkaline Phosphatase 57 40-136 U/L Troponin I < 0.30 <0.30 NG/ML C-Reactive Protein 0.67 H <0.50 MG/DL Pro-B-Type Natriuretic Peptide 1700.0 H <75.0 PG/ML Total Protein 7.9 6.4-8.2 GM/DL Albumin 4.5 3.2-4.5 GM/DL Lipase 15 8-78 U/L Urine Color GREEN H Urine Clarity CLOUDY Urine pH 6.5 5-9 Urine Specific [place] 1.025 H 1.016-1.022 Urine Protein 2+ H NEGATIVE Urine Glucose (UA) NEGATIVE NEGATIVE Urine Ketones TRACE H NEGATIVE Urine Nitrite NEGATIVE NEGATIVE Urine Bilirubin 2+ H NEGATIVE Urine Urobilinogen 0.2 < = 1.0 MG/DL Urine Leukocyte Esterase 2+ H NEGATIVE Urine RBC (Auto) 3+ H NEGATIVE Urine RBC >100 H /HPF Urine WBC >100 H /HPF Urine Squamous Epithelial Cells NONE /HPF Urine Crystals NONE /LPF Urine Bacteria FEW H /HPF Urine Casts NONE /LPF Urine Mucus NEGATIVE /LPF Urine Culture Indicated YES My Orders Orders - ANIYAH AKHTAR MD Cbc With Automated Diff (01/03/21 10:32) Comprehensive Metabolic Panel (01/03/21 10:32) Blood Culture (01/03/21 10:32) Ua Culture If Indicated (01/03/21 10:32) Chest 1 View Ap/Pa Only (01/03/21 10:32) Ed Iv/Invasive Line Start (01/03/21 10:32) Crp Fs (01/03/21 10:32) Lactic Acid Analyzer (01/03/21 10:32) Troponin I Fs (01/03/21 10:32) Probnp Fs (01/03/21 10:32) Arterial Blood Gas (01/03/21 10:32) O2 (01/03/21 10:32) Ekg Tracing (01/03/21 10:32) Protime With Inr (01/03/21 10:32) Partial Thromboplastin Time (01/03/21 10:32) Lipase (01/03/21 10:35) [place] Cath (01/03/21 10:54) Fibrin Degradation Products (01/03/21 10:55) Urine Culture (01/03/21 11:13) Ns Iv 500 Ml (Sodium Chloride 0.9%) (01/03/21 12:41) Ceftriaxone For Iv Use (Rocephin For I (01/03/21 12:41) Bipap (Bilevel) Set Up (01/03/21 12:41) Vital Signs/I&O 01/03/21 01/03/21 10:43 10:43 Temp 37.7 Pulse 110 Resp 30 B/P (MAP) 141/55 (83) Pulse Ox 91 91 O2 Delivery Non Rebreather Non Rebreather O2 Flow Rate 15.00 15.00 Capillary Refill : Progress Note #1: Progress Note With her hypoxia requiring a nonrebreather on 15 L well obtain a blood gas and blood cultures as well as a lactic acid. Given her history of atrial fibrillation will obtain electrocardiogram as she is tachycardic with a regular rhythm. With her slight elevated temperature 37.7 C will obtain the blood c ulture as well lactic acid as well as urinalysis and since she reports increased cough and shortness of breath if she does have a sputum production with cough will send for sputum culture Differential diagnosis includes pneumonia, CHF, sepsis, UTI, acute on chronic respiratory failure, myocardial infarction Progress Note #2: Time: 13:00 Progress Note With the nonrebreather her oxygen saturation did improve to 96 to 98% but resting in the room with her daughter. Her heart rate also slowed into the 70- 80 range but continued to be atrial fibrillation. Her labs came back showing a normal white blood cell count of 4.7. Her lactic acid was elevated to 2.9. This may be related to hyperventilation and the acute on chronic hypoxia/respiratory failure but could be from infection. Urinalysis came back showing signs of UTI. However her chest x-ray shows increased pulmonary vascular congestion but no definite infiltrate. Due to the increased pulmonary vascular congestion and concern for CHF with her also having an elevated proBNP of 1700 and peripheral edema I did not give her aggressive fluid resuscitation since her hemodynamic status was stable. In terms of her elevated lactic acid of 2.9 since this partly could also be hyperventilation we continue to monitor her and we will repeat that as well as treat her infection. Progress Note #3: Time: 14:00 Progress Note When checking with the patient and family she is much more calm now and not having the tremoring rigors as much. Her oxygen saturation on the nonrebreather is up to 96 to 98%. Discussed with Dr. Ramsey for admission to the [facility] under care of [facility]. Will place her on BiPap to help blow off pCO2 since it is elevated. Admit to ICU for closer monitoring and management. Will check with [facility] as well so they are aware of patient and can assist with management. Based on her previous urine and blood cultures from 2019 she had E. Coli that was pansensitive. Treat with Rocephin for the urine infection. Give 500 mL NS bolus and then continue fluids at 75 ml/hr for her sepsis and UTI but try to avoid worsening her fluid overload and respiratory failure. ECG Initial ECG Impression Date: January 03, 2021 Initial ECG Impression Time: 12:16 Initial ECG Rate: 78 Initial ECG Rhythm: A Fib/Flutter Initial ECG Comparisson: Unchanged Comment Atrial fibrillation with a heart rate of 78 bpm. QT interval 396 ms with a QTc interval 452 ms. There is no acute ST elevation. Appears similar to prior tracings in the system as she has chronic atrial fibrillation Diagnostic Imaging Diagonstic Imaging: Xray Plain Films/CT/US/NM/MRI: chest Comments [facility]. [place], [place] NAME: AUNDREA REEVES [facility] REC#: [id number] PT STATUS: REG ER : 1935 PHYSICIAN: ANIYAH AKHTAR MD ADMIT DATE: 01/03/21/ER FS Draft Date of Exam:01/03/21 CHEST 1 VIEW AP/PA ONLY Indication: Cough and hypoxia 5 frontal chest obtained at 1032 a.m. and compared to 04/30/2020 There is prominent cardiomegaly. There is central vascular congestion. These findings are similar to the prior study. There is no pneumothorax or pleural fluid IMPRESSION: Cardiomegaly central vascular congestion, similar to the previous study. No new abnormality. Dictated on workstation # [id number] Dict: 01/03/21 1055 Trans: 01/03/21 1058 [facility] [id number] Interpreted by: NICK VILLA MD Electronically signed by: Critical Care Note Critical Care Total Time (minutes) 45 minutes Progress 45 minutes of critical care time was spent on the patient. This time excludes separately billable procedures. Time was spent in obtaining history from the patient, family, medical records, ordering labs and reviewing results, ordering interventions and reviewing response, discussion with consultants, discussion with family and patient, documentation in the chart. Patient was at imminent risk of acute respiratory failure and required my constant interaction and monitoring. Departure Communication (Admissions) Time/Spoke to Admitting Phy: 12:35 d/w Dr. Ramsey for [facility] admit since pt follows with Dr. Araiza. Will admit to ICU for BiPap, IV antibiotics for UTI with sepsis, gentle hydration instead of aggressive hydration since she has fluid overload on CXR and elevated proBNP already. Impression Primary Impression: Cystitis with hematuria Additional Impressions: Sepsis Qualified Codes: A41.9 - Sepsis, unspecified organism Hypoxemic respiratory failure, chronic Hypercapnia Congestive heart failure Qualified Codes: I50.9 - Heart failure, unspecified Disposition: 30 STILL A PATIENT Condition: Critical Admissions Decision to Admit Reason: Admit from ER (General) Decision to Admit/Date: January 03, 2021 Time/Decision to Admit Time: 12:35 Departure-Patient Inst. Referrals: [facility] ([facility] Primary Care Physician CHUN AARON (Family) Primary Care Physician ANIYAH AKHTAR MD January 03, 2021 10:38
[2021-01-03 10:51] LABS: HEMATOCRIT 37 % (35-52); HEMOGLOBIN 10.6 G/DL (11.5-16.0); WHITE BLOOD COUNT 4.7 10^3/uL (4.3-11.0)
[2021-01-03 10:52] LABS: MEAN CORPUSCULAR HEMOGLOBIN 28 PG (25-34); MEAN CORPUSCULAR HGB CONC 28 G/DL (32-36); MEAN CORPUSCULAR VOLUME 98 FL (80-99); MEAN PLATELET VOLUME 8.9 FL (7.4-10.4); PLATELET COUNT 328 10^3/uL (130-400)
[2021-01-03 10:53] LABS: BASOPHILS % (AUTO) 0 % (0-10); EOSINOPHILS # (AUTO) 0.1 10^3/uL (0.0-0.3); EOSINOPHILS % (AUTO) 1 % (0-10); LYMPHOCYTES # (AUTO) 0.8 X 10^3 (1.0-4.0); LYMPHOCYTES % (AUTO) 18 % (12-44); MONOCYTES # (AUTO) 0.2 X 10^3 (0.0-1.0); MONOCYTES % (AUTO) 3 % (0-12); NEUTROPHILS # (AUTO) 3.6 X 10^3 (1.8-7.8); NEUTROPHILS % (AUTO) 77 % (42-75)
--- NOTE | 2021-01-03 10:58 | Diagnostic Imaging Report ---
Indication: Cough and hypoxia 5 frontal chest obtained at 1032 a.m. and compared to 04/30/2020 There is prominent cardiomegaly. There is central vascular congestion. These findings are similar to the prior study. There is no pneumothorax or pleural fluid IMPRESSION: Cardiomegaly central vascular congestion, similar to the previous study. No new abnormality. Dictated by: Dictated on workstation # [id number]
[2021-01-03 11:08] LABS: ABG PH 7.31 (7.37-7.43)
[2021-01-03 11:09] LABS: ABG BASE EXCESS 13.4 MMOL/L (-2.5-2.5); ABG OXYGEN SATURATION 94 % (94-100); ABG PCO2 86 MMHG (35-45); ABG PO2 79 MMHG (79-93); ABG TCO2 45.9 MMOL/L (21.0-31.0)
[2021-01-03 11:10] LABS: ALLENS TEST OK; INSPIRED O2 15 L; PATIENT TEMP 37.7; VENTILATOR NO
[2021-01-03 11:22] LABS: INR 2.6 (0.8-1.4); PROTHROMBIN TIME PATIENT 27.7 SEC (12.2-14.7)
[2021-01-03 11:28] LABS: POTASSIUM 4.7 MMOL/L (3.6-5.0)
[2021-01-03 11:29] LABS: ALBUMIN 4.5 GM/DL (3.2-4.5); BILIRUBIN,TOTAL 0.7 MG/DL (0.1-1.0); CALCIUM 10.1 MG/DL (8.5-10.1); CREATININE SERUM 0.92 MG/DL (0.60-1.30); TOTAL PROTEIN 7.9 GM/DL (6.4-8.2)
[2021-01-03 11:38] LABS: CLARITY,URINE CLOUDY; COLOR,URINE GREEN; GLUCOSE, URINE (UA) NEGATIVE (NEGATIVE); PH,URINE 6.5 (5-9); PROTEIN,URINE 2+ (NEGATIVE)
[2021-01-03 11:39] LABS: KETONES,URINE TRACE (NEGATIVE); NITRITE,URINE NEGATIVE (NEGATIVE)
[2021-01-03 11:45] LABS: BILIRUBIN,URINE 2+ (NEGATIVE); LEUKOCYTE ESTERASE ,URINE 2+ (NEGATIVE); RBC,URINE >100 /HPF; WBC,URINE >100 /HPF
[2021-01-03 11:46] LABS: BACTERIA,URINE FEW /HPF
[2021-01-03] MEDS ORDERED: NS IV 500 ML 500 ML IV STA (12:41)
[2021-01-03] MEDS ORDERED: cefTRIAXone FOR IV USE 1,000 MG in WATER (STERILE) FOR INJECTION 10 ML IV STA (12:41)
[2021-01-03] MEDS ORDERED: NS IV 1000 ML 1,000 ML ONE (16:03)
[2021-01-03] MEDS ORDERED: ACETAMINOPHEN 650 MG SUPP (TYLENOL) PR PRN (16:30)
[2021-01-03] MEDS ORDERED: NS IV 1000 ML 1,000 ML IV SCH (16:30)
[2021-01-03] MEDS ORDERED: CATHETER FLUSH 10 ML SYR IV PRN ×2 (16:30→20:15)
[2021-01-03] MEDS ORDERED: EPINEPHrine 1 MG INJECTION 4 MG in NS (IVPB) 248 ML IV SCH (16:45)
[2021-01-03] MEDS: NOREPINEPHRINE 8 MG/250 ML 250 ML IV SCH (16:45)
[2021-01-03] MEDS: VASOPRESSIN INJECTION 20 UNIT in NS (IVPB) 100 ML IV SCH (16:45)
[2021-01-03] MEDS: NS IV 1000 ML 1,000 ML IV SCH (16:45)
[2021-01-03 16:53] VITALS: BP 118/63
[2021-01-03] MEDS ORDERED: RT-ALBUTEROL/IPRATROPIUM 3 ML (DUONEB) VIAL INH PRN (17:15)
[2021-01-03 18:46] LABS: ABG BASE EXCESS 13.9 MMOL/L (-2.5-2.5); ABG OXYGEN SATURATION 95 % (94-100); ABG PO2 80 MMHG (79-93); ABG TCO2 42.6 MMOL/L (21.0-31.0)
[2021-01-03 18:48] LABS: ABG PH 7.33 (7.37-7.43)
[2021-01-03 18:49] LABS: ABG PCO2 78 MMHG (35-45); INSPIRED O2 70%; VENTILATOR NO
[2021-01-03 18:50] LABS: PATIENT TEMP 37.6
[2021-01-03] MEDS ORDERED: IOHEXOL 350 MG/ML 100 ML (OMNIPAQUE 350) VIAL IV ONE (20:15)
[2021-01-03] MEDS ORDERED: NS 100 ML (IVPB) BAG IV ONE (20:15)
[2021-01-03] MEDS ORDERED: HOLD METFORMIN - RECEIVED CONTRAST 20 ML VIAL IV SCH (20:15)
--- NOTE | 2021-01-03 20:32 | History & Physical ---
HPI History of Present Illness: 85 yo F that lives in LTC that was complaining of abdominal pain and was acting different per the staff. She is currently on bipap and daughter is answering most of the questions. Daughter states that she has been having a harder time breathing for several weeks. No missed medications. In ER patient was found to be hypoxic and septic from presumed UTI. She was placed on bipap and transferred to ICU. Source: family Exam Limitations: clinical condition Date seen by provider: January 03, 2021 Time Seen by Provider: 17:15 Attending Physician Deepali Ramsey MD PCP Marija Dupree MD Consult Date of Admission January 03, 2021 at 12:35 Home Medications Home Medications Reviewed patient Home Medication Reconciliation performed by pharmacy medication reconciliations database software technician and/or nursing. Patients Allergies have been reviewed. Allergies Coded Allergies: Sulfa (Sulfonamide Antibiotics) (Verified Allergy, Unknown, 04/30/20) SLN-Sfehfs-Mnoxun Hx Patient Social History Living Status: Alf Care Smoking Status: Never a Smoker 2nd Hand Smoke Exposure: No Recent Hopitalizations: No Alcohol Use?: No Have you traveled recently?: No Past Medical History COPD oxygen dependent Pulmonary HTN CAD HTN Family Medical History Significant Family History: No Pertinent Family Hx Review of Systems ([facility]) Constitutional: other Gastrointestinal: abdominal pain Other Unable to get full ROS due to bipap and patient's confusion Reviewed Test Results Reviewed Test Results Lab Laboratory Tests Test 01/03/21 10:35 01/03/21 11:13 01/03/21 11:24 01/03/21 16:40 Range/Units White Blood Count 4.7 4.3-11.0 10^3/uL Red Blood Count 3.86 L 4.35-5.85 10^6/uL Hemoglobin 10.6 L 11.5-16.0 G/DL Hematocrit 37 35-52 % Mean Corpuscular Volume 98 80-99 FL Mean Corpuscular Hemoglobin 28 25-34 PG Mean Corpuscular Hemoglobin Concent 28 L 32-36 G/DL Red Cell Distribution Width 17.8 H 10.0-14.5 % Platelet Count 328 130-400 10^3/uL Mean Platelet Volume 8.9 7.4-10.4 FL Immature Granulocyte % (Auto) 0 % Neutrophils (%) (Auto) 77 H 42-75 % Lymphocytes (%) (Auto) 18 12-44 % Monocytes (%) (Auto) 3 0-12 % Eosinophils (%) (Auto) 1 0-10 % Basophils (%) (Auto) 0 0-10 % Neutrophils # (Auto) 3.6 1.8-7.8 X 10^3 Lymphocytes # (Auto) 0.8 L 1.0-4.0 X 10^3 Monocytes # (Auto) 0.2 0.0-1.0 X 10^3 Eosinophils # (Auto) 0.1 0.0-0.3 10^3/uL Basophils # (Auto) 0.0 0.0-0.1 10^3/uL Immature Granulocyte # (Auto) 0.0 0.0-0.1 10^3/uL Percent Immature Platelet Fraction 1.7 0.0-7.6 % Prothrombin Time 27.7 H 12.2-14.7 SEC INR Comment 2.6 H 0.8-1.4 Activated Partial Thromboplast Time 31 24-35 SEC D-Dimer 1.53 H 0.00-0.49 UG/ML Blood Gas Puncture Site RT RADIAL Blood Gas Patient Temperature 37.7 Arterial Blood pH 7.31 *L 7.37-7.43 Arterial Blood Partial Pressure CO2 86 *H 35-45 MMHG Arterial Blood Partial Pressure O2 79 79-93 MMHG Arterial Blood HCO3 43 *H 23-27 MMOL/L Arterial Blood Total CO2 45.9 H 21.0-31.0 MMOL/L Arterial Blood Oxygen Saturation 94 94-100 % Arterial Blood Base Excess 13.4 H -2.5-2.5 MMOL/L Octavio Test OK Blood Gas Ventilator Setting NO Blood Gas Inspired Oxygen 15 L Sodium Level 145 135-145 MMOL/L Potassium Level 4.7 3.6-5.0 MMOL/L Chloride Level 96 L 98-107 MMOL/L Carbon Dioxide Level 40 H 21-32 MMOL/L Anion Gap 9 5-14 MMOL/L Blood Urea Nitrogen 17 7-18 MG/DL Creatinine 0.92 0.60-1.30 MG/DL Estimat Glomerular Filtration Rate 58 BUN/Creatinine Ratio 18 Glucose Level 130 H 70-105 MG/DL Lactic Acid Level 2.90 *H 1.89 1.00 0.50-2.00 MMOL/L Calcium Level 10.1 8.5-10.1 MG/DL Corrected Calcium 9.7 8.5-10.1 MG/DL Total Bilirubin 0.7 0.1-1.0 MG/DL Aspartate Amino Transf (AST/SGOT) 28 5-34 U/L Alanine Aminotransferase (ALT/SGPT) 15 0-55 U/L Alkaline Phosphatase 57 40-136 U/L Troponin I < 0.30 <0.30 NG/ML C-Reactive Protein 0.67 H <0.50 MG/DL Pro-B-Type Natriuretic Peptide 1700.0 H <75.0 PG/ML Total Protein 7.9 6.4-8.2 GM/DL Albumin 4.5 3.2-4.5 GM/DL Lipase 15 8-78 U/L Urine Color GREEN H Urine Clarity CLOUDY Urine pH 6.5 5-9 Urine Specific [place] 1.025 H 1.016-1.022 Urine Protein 2+ H NEGATIVE Urine Glucose (UA) NEGATIVE NEGATIVE Urine Ketones TRACE H NEGATIVE Urine Nitrite NEGATIVE NEGATIVE Urine Bilirubin 2+ H NEGATIVE Urine Urobilinogen 0.2 < = 1.0 MG/DL Urine Leukocyte Esterase 2+ H NEGATIVE Urine RBC (Auto) 3+ H NEGATIVE Urine RBC >100 H /HPF Urine WBC >100 H /HPF Urine Squamous Epithelial Cells NONE /HPF Urine Crystals NONE /LPF Urine Bacteria FEW H /HPF Urine Casts NONE /LPF Urine Mucus NEGATIVE /LPF Urine Culture Indicated YES Test 01/03/21 16:48 Range/Units Blood Gas Puncture Site NA Blood Gas Patient Temperature 37.6 Arterial Blood pH 7.33 *L 7.37-7.43 Arterial Blood Partial Pressure CO2 78 *H 35-45 MMHG Arterial Blood Partial Pressure O2 80 79-93 MMHG Arterial Blood HCO3 40 H 23-27 MMOL/L Arterial Blood Total CO2 42.6 H 21.0-31.0 MMOL/L Arterial Blood Oxygen Saturation 95 94-100 % Arterial Blood Base Excess 13.9 H -2.5-2.5 MMOL/L Octavio Test NA Blood Gas Ventilator Setting NO Blood Gas Inspired Oxygen 70% Physical Exam-([facility]) Physical Exam Vital Signs VS - Last 72 Hours, by Label 01/03/21 01/03/21 01/03/21 01/03/21 10:43 10:43 14:50 15:39 Temp 37.7 Pulse 110 92 86 Resp 30 21 19 B/P (MAP) 141/55 (83) 128/69 Pulse Ox 91 91 97 92 O2 Delivery Non Rebreather Non Rebreather O2 Flow Rate 15.00 15.00 70.00 01/03/21 01/03/21 01/03/21 01/03/21 15:46 16:00 16:00 16:53 Temp 39.2 39.2 Pulse 106 96 106 Resp 15 14 B/P (MAP) 118/63 (81) 130/59 (82) Pulse Ox 94 94 94 O2 Delivery NIV Bilevel NIV Bilevel NIV Bilevel O2 Flow Rate 70.00 70.00 FiO2 70 01/03/21 01/03/21 01/03/21 17:00 18:00 19:00 Pulse 94 87 122 Resp 14 14 B/P (MAP) 128/67 (87) 124/64 (84) Pulse Ox 94 92 O2 Delivery NIV Bilevel NIV Bilevel O2 Flow Rate 70.00 70.00 Capillary Refill : Less Than 3 Seconds General Appearance: severe distress Neck: non-tender, full range of motion Respiratory: respiratory distress, accessory muscle use, crackles, wheezing Cardiovascular: no murmur, irregularly irregular Gastrointestinal: distended, guarding, tenderness (diffuse) Back: no CVA tenderness, no vertebral tenderness Extremities: non-tender, no calf tenderness, normal capillary refill, pedal edema (2+ pitting edema bilaterally) Neurologic/Psychiatric: other (Awake, not responding other then to pain) Skin: cyanosis (ears and finger tips), mottled Assessment/Plan Assessment/Plan Admission Status: Inpatient Order (span 2 midnights) Reason for Inpatient Admission: Patient requiring ICU care (1) Acute on chronic respiratory failure with hypoxia and hypercapnia Status: Acute Assessment & Plan: - Admitted to ICU, currently on bipap, Repeat ABG now, consult Dr Clemens for critical care management (2) Sepsis Status: Acute Assessment & Plan: - IVF hydration less then sepsis protocol due to severe pulmonary HTN and CHF, will monitor UOP closely Qualifiers: Qualified Codes: A41.9 - Sepsis, unspecified organism; R65.20 - Severe sepsis without septic shock (3) UTI (urinary tract infection) Status: Acute Assessment & Plan: - Rocephin Qualifiers: Qualified Codes: N30.01 - Acute cystitis with hematuria (4) Abdominal pain Status: Acute Assessment & Plan: - Patient with rebound ttp and guarding, CT Chest/Abdomen ordered STAT Qualifiers: Qualified Codes: R10.84 - Generalized abdominal pain (5) Acute CHF Status: Acute Assessment & Plan: - Consult Cardiology, echo ordered Qualifiers: Qualified Codes: I50.9 - Heart failure, unspecified (6) Atrial fibrillation Status: Chronic Assessment & Plan: - Patient on OAC, rate controlled Qualifiers: Qualified Codes: I48.11 - Longstanding persistent atrial fibrillation (7) Normocytic anemia Status: Chronic (8) DVT prophylaxis Status: Acute Assessment & Plan: - Lovenox Copy Copies To 1: MARIJA DUPREE MD, HOLLY R MD January 03, 2021 20:32
--- NOTE | 2021-01-03 20:43 | Diagnostic Imaging Report ---
INDICATION: Severe abdominal pain. Abdominal distention. Shortness of air. Hypoxia. CTA chest, abdomen and pelvis Thin axial sections through the chest, abdomen and pelvis are obtained following intravenous contrast bolus. Multiplanar MIP images were reconstructed and reviewed. All CT scans use one or more of the following dose optimizing techniques: automated exposure control, MA and/or KvP adjustment based on patient size and exam type or iterative reconstruction. COMPARISON: 04/30/2020 FINDINGS: CTA chest: There is no evidence of acute pulmonary embolus to the 1st subsegmental division of the pulmonary arteries. Main pulmonary arterial trunk is enlarged. It measures 3.8 cm in diameter. There is also severe cardiomegaly, right greater than left. Thoracic aorta is suboptimally opacified to assess for dissection. There is moderate diffuse calcified aortic atherosclerosis. By NASCET criteria, there is no focal significant stenosis. There is no evidence of aneurysm. There is no large pericardial effusion. There is moderate calcified coronary atherosclerosis. No pathologically enlarged or morphologically abnormal adenopathy is seen within the mediastinum, aurelio, nor axilla. Evaluation of lung erickson demonstrates consolidative opacities within both lung bases. Enhancement characteristics suggest atelectasis. There are geographic areas of groundglass density as well. Note is also made of 5 mm micronodule within the superior segment of the right lower lobe (image 72, series 4). There is no large effusion or pneumothorax. Osseous structures show age-related degenerative changes. No acute bony abnormalities are seen. CT ABDOMEN: There is colonic diverticulosis. Note is made of stranding of the pericolonic fat surrounding the sigmoid colon. There is also thickened appearance to the wall of the sigmoid colon. Findings are concerning for acute diverticulitis. Note is made of cecal bascule. Normal appendix cannot be adequately identified. Small bowel loops are nondistended. There is small amount of ascites scattered throughout the abdomen and pelvis. There is no loculated fluid collection or free air. There is no pneumatosis nor portal venous gas. Gallbladder is mildly distended. Please note, CT is suboptimal to assess for cholelithiasis. Indwelling left-sided double-J ureteral stent is present. Stent appears to be in appropriate position. Patency of the stent cannot be assessed, but there has been significant interval improvement in left-sided hydronephrosis. Kidneys have an otherwise normal CT appearance. Adrenal glands, spleen, and pancreas have a normal CT appearance, as does the liver. Indwelling IVC filter is noted. There is advanced diffuse calcified aortic arch atherosclerosis. No abnormal mesenteric or retroperitoneal adenopathy is seen. Advanced degenerative changes of scoliotic deformity of the thoracal lumbar spine are also noted. CT ABDOMEN: Urinary bladder is minimally distended. Corral catheter is present within urinary bladder. There is associated urinary bladder wall thickening. There is small amount of free fluid within the pelvis. There may be more focal loculated air-fluid collection within the posterior left pelvis that measures 3 x 3.6 cm. There is no free air. No abnormal adenopathy is seen. IMPRESSION: 1. Colonic diverticulosis with findings concerning for acute sigmoidal diverticulitis. 2. Small amount of ascites throughout the abdomen or pelvis. Additionally, there may be more focal loculated fluid collection within the posterior left pelvis concerning for abscess. 3. Interval placement of left-sided double-J ureteral stent with decompression of left renal collecting system. 4. Bladder wall thickening. This may be artifact related to incomplete distention, but may also be seen with cystitis. Clinical correlation is recommended. 5. Consolidative airspace opacities bilaterally. Atelectasis is favored. Some component of infiltrate is not entirely excluded. 6. No acute pulmonary embolus. 7. Enlargement of the main pulmonary arterial trunks. Findings can be seen with underlying pulmonary arterial hypertension. 8. Significant cardiomegaly. 9. Small micronodule of the right lower lobe. One-year followup is recommended to ensure stability. Called and faxed to [facility] at 8:40 P.M. by cvb. Dictated by: Dictated on workstation # [id number]
[2021-01-03] MEDS ORDERED: RT-ALBUTEROL/IPRATROPIUM 3 ML (DUONEB) VIAL INH SCH (21:00)
[2021-01-03] MEDS: LORazepam INJ 2 MG/ML (ATIVAN) VIAL IVP PRN (23:10)
[2021-01-04] MEDS: VASOPRESSIN INJECTION 20 UNIT in NS (IVPB) 100 ML IV SCH ×2 (01:27→08:47)
[2021-01-04 02:57] LABS: BASOPHILS % (AUTO) 0 % (0-10); EOSINOPHILS % (AUTO) 0 % (0-10); HEMATOCRIT 33 % (35-52); HEMOGLOBIN 9.4 g/dL (11.5-16.0); LYMPHOCYTES # (AUTO) 0.5 10^3/uL (1.0-4.0); LYMPHOCYTES % (AUTO) 4 % (12-44); MEAN CORPUSCULAR HEMOGLOBIN 27 pg (25-34); MEAN CORPUSCULAR HGB CONC 29 g/dL (32-36); MEAN CORPUSCULAR VOLUME 95 fL (80-99); MEAN PLATELET VOLUME 8.9 fL (9.0-12.2); MONOCYTES # (AUTO) 0.9 10^3/uL (0.0-1.0); MONOCYTES % (AUTO) 8 % (0-12); NEUTROPHILS # (AUTO) 9.8 10^3/uL (1.8-7.8); NEUTROPHILS % (AUTO) 87 % (42-75); PLATELET COUNT 228 10^3/uL (130-400); WHITE BLOOD COUNT 11.3 10^3/uL (4.3-11.0)
[2021-01-04 03:06] LABS: ALBUMIN 3.5 GM/DL (3.2-4.5); CHLORIDE 99 MMOL/L (98-107); POTASSIUM 4.2 MMOL/L (3.6-5.0); SODIUM 145 MMOL/L (135-145)
[2021-01-04 03:07] LABS: CALCIUM 9.2 MG/DL (8.5-10.1)
[2021-01-04 03:08] LABS: GLUCOSE 101 MG/DL (70-105); TOTAL PROTEIN 6.8 GM/DL (6.4-8.2)
[2021-01-04 03:09] LABS: CARBON DIOXIDE 37 MMOL/L (21-32)
[2021-01-04 03:10] LABS: BILIRUBIN,TOTAL 0.8 MG/DL (0.1-1.0)
[2021-01-04 03:12] LABS: ALKALINE PHOSPHATASE 32 U/L (40-136); CREATININE SERUM 0.84 MG/DL (0.60-1.30); GFR ESTIMATED > 60
[2021-01-04 03:13] LABS: BUN/CREATININE RATIO 20
[2021-01-04 03:15] LABS: ALANINE AMINOTRANSFERASE 12 U/L (0-55)
[2021-01-04 03:19] LABS: BAND NEUTROPHILS 25 %; HYPOCHROMASIA SLIGHT; LYMPHOCYTES % (MANUAL) 3 %; MONOCYTES % (MANUAL) 9 %; NEUTROPHILS % (MANUAL) 63 %
--- NOTE | 2021-01-04 04:36 | Pulmonary Consultation ---
History of Present Illness History of Present Illness Date Seen by Provider: January 04, 2021 Time Seen by Provider: 04:29 Date of Admission Allergies and Home Medications Allergies Coded Allergies: Sulfa (Sulfonamide Antibiotics) (Verified Allergy, Unknown, 04/30/20) Past [id number]-Ddacgp Hx Past Med/Social Hx: Reviewed Nursing Past Med/Soc Hx Patient Social History Alcohol Use: Denies Use Smoking Status: Never a Smoker 2nd Hand Smoke Exposure: No Recent Infectious Disease Expo: No Recent Hopitalizations: No Have you traveled recently?: No Alcohol Use?: No Seasonal Allergies Seasonal Allergies: No Past Medical History Surgeries: Yes (poor historian) Respiratory: Yes (chronic hypoxia (requires high flow O2); pulm htn; ) Cardiac: Yes (Pulmonary HTN) Atrial Fibrillation, Deep Vein Thrombosis, Hypertension Neurological: No Genitourinary: Yes (Hx Urosepsis) UTI-Chronic Gastrointestinal: No Musculoskeletal: Yes (On Xeljanz and Prednisone (off IV txs thru COVID)) Rheumatoid Arthritis Endocrine: Yes Hypothyroidsim HEENT: No Cancer: No Psychosocial: No Integumentary: No Blood Disorders: No Family Medical History No Pertinent Family Hx Review of Systems Time Seen by Provider: 04:29 Sepsis Event Evaluation Height, Weight, BMI Height: '" Weight: lbs. oz. kg; 30.37 BMI Method: Exam Exam Vital Signs Date Time Temp Pulse Resp B/P (MAP) Pulse Ox O2 Delivery O2 Flow Rate FiO2 01/04/21 03:50 92 21 95 70.00 01/04/21 03:00 88 24 129/54 (79) 94 NIV Bilevel 70.00 01/04/21 02:00 81 28 126/95 (105) 96 NIV Bilevel 70.00 01/04/21 01:00 86 16 110/56 (74) 96 NIV Bilevel 70.00 01/04/21 01:00 72 01/04/21 00:00 82 18 122/65 (84) 96 NIV Bilevel 70.00 01/03/21 23:59 NIV Bilevel 70 01/03/21 23:04 84 17 98 70.00 01/03/21 23:00 83 15 117/67 (84) 98 NIV Bilevel 70.00 01/03/21 22:00 81 15 116/85 (95) 95 NIV Bilevel 70.00 01/03/21 21:00 80 28 99/56 (70) 96 NIV Bilevel 70.00 01/03/21 20:00 NIV Bilevel 70 01/03/21 20:00 83 21 129/65 (86) 96 NIV Bilevel 70.00 01/03/21 20:00 36.8 01/03/21 19:00 122 01/03/21 19:00 86 14 138/63 (88) 93 NIV Bilevel 70.00 01/03/21 18:00 87 14 124/64 (84) 92 NIV Bilevel 70.00 01/03/21 17:00 94 14 128/67 (87) 94 NIV Bilevel 70.00 01/03/21 16:53 39.2 106 94 01/03/21 16:00 96 14 130/59 (82) 94 NIV Bilevel 70.00 01/03/21 16:00 NIV Bilevel 70 01/03/21 15:46 39.2 106 15 118/63 (81) 94 NIV Bilevel 70.00 01/03/21 15:39 86 19 92 70.00 01/03/21 14:50 92 21 128/69 97 01/03/21 10:43 91 Non Rebreather 15.00 01/03/21 10:43 37.7 110 30 141/55 (83) 91 Non Rebreather 15.00 I & O 01/04/21 07:00 Intake Total 50 ml Output Total 600 ml Balance -550 ml Height & Weight Height: '" Weight: lbs. oz. kg; 30.37 BMI Method: General Appearance: Anxious, Moderate Distress, Other (diffuse tremors) HEENT: No Moist Mucous Membranes (dry mucus membranes) Respiratory: Chest Non Tender, No Accessory Muscle Use, No Respiratory Distress, Decreased Breath Sounds Cardiovascular: Normal Peripheral Pulses, Irregularly Irregular; No Tachycardia Capillary Refill: Less Than 3 Seconds Peripheral Pulses: 2+ Radial Pulses (R), 2+ Radial Pulses (L) Gastrointestinal: distended, guarding, tenderness (diffuse) Extremity: Normal Capillary Refill, Pedal Edema (1+ BLE pedal edema) Neurologic/Psychiatric: Alert; No Oriented x3 (oriented to self only); cook apprentice II- XII Norm as Tested Skin: Normal Color, Warm/Dry Lymphatic: No Adenopathy Results Lab Laboratory Tests 01/03/21 10:35 01/04/21 02:43 Assessment/Plan Assessment/Plan Acute on chronic respiratory failure -Repeat ABG -Currently on BiPAP Sepsis with UTI r/o PNA -Continue Rocephn -[place] cultures Hx of oxygen dependent COPD -Increase Duoneb to Q4 -Oxygen \\ CHF hx -Monitor -Repeat BNP -Echo pending Afib - controlled rate -Monitor BRIANNE MCGEE DO January 04, 2021 04:36
[2021-01-04 05:00] LABS: ABG BASE EXCESS 13.7 MMOL/L (-2.5-2.5); ABG OXYGEN SATURATION 88 % (94-100); ABG PCO2 56 MMHG (35-45); ABG PH 7.45 (7.37-7.43); ABG PO2 53 MMHG (79-93); ABG TCO2 40.4 MMOL/L (21.0-31.0); ALLENS TEST YES-POS; INSPIRED O2 70%; PATIENT TEMP 36.5; VENTILATOR NO
[2021-01-04] MEDS: methylPREDNISolone 40 MG/ML (Solu-MEDROL) VIAL IV SCH ×3 (06:27→18:40)
[2021-01-04] MEDS: NS IV 1000 ML 1,000 ML IV SCH (06:27)
[2021-01-04] MEDS: RT-ALBUTEROL/IPRATROPIUM 3 ML (DUONEB) VIAL INH SCH ×5 (06:37→22:07)
[2021-01-04] MEDS: LORazepam INJ 2 MG/ML (ATIVAN) VIAL IVP PRN (07:40)
[2021-01-04] MEDS: cefTRIAXone 1,000 MG/SWFI 10 ML IV PUSH IV SCH ×2 (08:44)
[2021-01-04] MEDS: NOREPINEPHRINE 8 MG/250 ML 250 ML IV SCH (08:46)
[2021-01-04] MEDS ORDERED: FURO20TA4 PO (10:32)
[2021-01-04] MEDS ORDERED: METH1TAB41 PO (10:32)
[2021-01-04] MEDS ORDERED: BISA10SU58 RC (10:32)
[2021-01-04] MEDS ORDERED: WARF-47 PO (10:32)
[2021-01-04] MEDS ORDERED: ALB0.5V INH (10:32)
[2021-01-04] MEDS ORDERED: PRED2.5T PO (10:32)
[2021-01-04] MEDS ORDERED: DOCU100C37 PO (10:32)
[2021-01-04] MEDS ORDERED: ASCO100024 PO (10:32)
[2021-01-04] MEDS ORDERED: DIGO125T3 PO (10:32)
[2021-01-04] MEDS ORDERED: HYOS-19 SL (10:32)
[2021-01-04] MEDS ORDERED: SIMV20TA26 PO (10:32)
[2021-01-04] MEDS ORDERED: HYDR28.341 RC (10:32)
[2021-01-04] MEDS ORDERED: CARV6.252 PO (10:32)
[2021-01-04] MEDS ORDERED: NF-PILO5T PO ×2 (10:32→10:38)
[2021-01-04] MEDS ORDERED: TOFA11TA PO (10:32)
[2021-01-04] MEDS ORDERED: GABA-486 PO (10:32)
[2021-01-04] MEDS ORDERED: POLY17PO6 PO (10:32)
[2021-01-04] MEDS ORDERED: PHEN-640 PO (10:32)
[2021-01-04] MEDS ORDERED: MAGN250T2 PO (10:32)
[2021-01-04] MEDS ORDERED: LATA2.5D19 OU (10:32)
[2021-01-04] MEDS ORDERED: CHOL500044 PO (10:32)
[2021-01-04] MEDS ORDERED: CALC1CAP21 PO (10:32)
[2021-01-04] MEDS ORDERED: SERT-412 PO (10:32)
[2021-01-04] MEDS ORDERED: MELA5TAB14 PO (10:32)
[2021-01-04] MEDS ORDERED: POTA10CA43 PO (10:32)
[2021-01-04] MEDS ORDERED: PHEN26CR2 RC (10:32)
[2021-01-04] MEDS ORDERED: FURO40TA4 PO (10:32)
[2021-01-04] MEDS ORDERED: ACET-2267 PO ×2 (10:32)
[2021-01-04] MEDS ORDERED: NYST15CR TP (10:32)
[2021-01-04] MEDS ORDERED: LEVO75TA6 PO (10:32)
[2021-01-04] MEDS ORDERED: PANT40TA52 PO (10:32)
[2021-01-04] MEDS ORDERED: OXYB5TAB13 PO (10:38)
--- NOTE | 2021-01-04 10:53 | Consultation-Cardiology ---
HPI-Cardiology Cardiology Consultation: Date of Consultation 01/04/21 Date of Admission Attending Physician Deepali Ramsey MD Admitting Physician Jose Araiza MD Consulting Physician Dulce CROOK MD HPI: Time Seen by a Provider: 10:53 Chief Complaint: shortness of breath This is an elderly lady who lives in a nursing facility and c/o abdominal discomfort. Worsening shortness of breath. She was found to have hypoxia and likely UTI sepsis as well. Review of Systems-Cardiology Review of Systems Constitutional: As described under HPI; No As described under HPI, No no symptoms reported, No chills, No fever, No lightheadedness Eyes: No As described under HPI, No no symptoms reported, No blindness, No blurred vision, No contact lenses, No drainage, No decreased acuity, No foreign body sensation, No pain, No vision change Ears/Nose/Throat: No As described under HPI, No no symptoms reported, No chronic hearing loss, No ear discharge, No ear pain, No nasal drainage, No ulcerations Respiratory: No no symptoms reported; As described under HPI; No As described under HPI, No cough; orthopnea; No shortness of breath, No SOB with excertion Cardiovascular: No no symptoms reported; As described under HPI; No As descr ibed under HPI, No chest pain, No edema, No irregular heart rate, No lightheadedness, No palpitations Gastrointestinal: No no symptoms reported, No As described under HPI, No abdomen distended; abdominal pain; No blood streaked bowels, No constipation, No diarrhea, No nausea, No vomiting, No stool coloration changes Genitourinary: No As described under HPI, No burning, No dysuria, No discharge, No frequency, No flank pain, No hematuria, No urgency : Yes : No Skin: No rash, No skin related problems, No ulcerations Psychiatric/Neurological: No anxiety, No depression, No seizure, No focal weakness, No syncope Hematologic: No bleeding abnormalities ICF-Lufvjg-Jkzcdu Hx Patient Social History Living Status: [facility] Smoking Status: Never a Smoker 2nd Hand Smoke Exposure: No Have you traveled recently?: No Alcohol Use?: No Pt feels they are or have been: No Past Medical History PMH As described under Assessment. Allergies and Home Medications Allergies Coded Allergies: Sulfa (Sulfonamide Antibiotics) (Verified Allergy, Unknown, 04/30/20) Home Medications Acetaminophen 500 Mg Tablet, 1,000 MG PO Q6H PRN for PAIN-MILD (1-4) OR TEMPATURE, (Reported) Last Action: Continued Acetaminophen 500 Mg Tablet, 1,000 MG PO 1200,1999, (Reported) Last Action: Held Albuterol Sulfate 2.5 Mg/0.5 Ml Vial.neb, 2.5 MG INH Q4H, (Reported) Last Action: Continued Ascorbic Acid 1,000 Mg Tablet, 1,000 MG PO 1200, (Reported) Last Action: Held Bisacodyl 10 Mg Supp.rect, 10 MG RC DAILY PRN for CONSTIPATION-4TH LINE, (Reported) Last Action: Continued Calcium Carbonate/Vitamin D3 1 Each Capsule, 1 EACH PO 1200, (Reported) Last Action: Held Carvedilol 6.25 Mg Tablet, 6.25 MG PO BID, (Reported) HOLD IF SBP<110 OR HR<60 Last Action: Continued Cholecalciferol (Vitamin D3) 125 Mcg Tablet, 125 MCG PO 1200, (Reported) Last Action: Held Digoxin 125 Mcg Tablet, 125 MCG PO DAILY, (Reported) NOTIFY NURSE PULSE <60 Last Action: Continued Docusate Sodium 100 Mg Capsule, 100 MG PO Q48H, (Reported) Last Action: Continued Furosemide 40 Mg Tablet, 40 MG PO DAILY PRN for 3LB GAIN IN 24 HR/5LB IN 72HR, (Reported) GIVE WITH POTASSIUM Last Action: Held Furosemide 20 Mg Tablet, 20 MG PO 1300, (Reported) Last Action: Held Furosemide 40 Mg Tablet, 40 MG PO DAILY, (Reported) Last Action: Held Gabapentin 100 Mg Capsule, 100 MG PO 0630,1400,1999, (Reported) Last Action: Continued Hydrocortisone 28.35 Gm Cream.appl, 1 APPLIC RC UD PRN for HEMMORRHOID DISCOMFORT, (Reported) Last Action: Held Hyoscyamine Sulfate 0.125 Mg Tab.subl, 0.125 MG SL Q4H PRN for BLADDER SPASMS, (Reported) Last Action: Held Latanoprost 2.5 Ml Drops, 1 DROPS OU HS, (Reported) Last Action: Continued Levothyroxine Sodium 75 Mcg Tablet, 75 MCG PO DAILY, (Reported) Last Action: Continued Magnesium 250 Mg Tablet, 250 MG PO 1200, (Reported) Last Action: Held Melatonin 5 Mg Tablet, 2.5 MG PO HS, (Reported) TAKES OF A 5MG TAB Last Action: Reviewed Mth/Me Blue/Sod Phos/Phen/Hyos 1 Each Tablet, 1 EA PO DAILY, (Reported) Last Action: Held Nystatin 15 Gm Cream..g., 1 APPLIC TP BID PRN for ITCHING/GAULDING, (Reported) APPLY TO GROIN Last Action: Held Oxybutynin Chloride 5 Mg Tablet, 5 MG PO Q8H PRN for BLADDER SPASMS, (Reported) Last Action: Held Pantoprazole Sodium 40 Mg Tablet.dr, 40 MG PO DAILY, (Reported) Last Action: Continued Phenazopyridine HCl 200 Mg Tablet, 1 TAB PO TIDWM PRN for URINARY PAIN, (Reported) Last Action: Held Phenyleph/Pramoxin/Glycr/W.pet 26 Gm Cream..g., 1 APPLIC RC Q4H PRN for HEMMORRHOID DISCOMFORT, (Reported) Last Action: Held Pilocarpine 5 Mg Tab, 5 MG PO BID PRN for DRY MOUTH, (Reported) Last Action: Held Pilocarpine 5 Mg Tab, 5 MG PO BID, (Reported) Last Action: Reviewed Polyethylene Glycol 3350 17 Gm Powd.pack, 17 GM PO DAILY PRN for CONSTIPATION- 2ND LINE, (Reported) Last Action: Continued Potassium Chloride 10 Meq Capsule.er, 10 MEQ PO DAILY, (Reported) Last Action: Held Potassium Chloride 10 Meq Capsule.er, 10 MEQ PO DAILY PRN for 3LB GAIN IN 24HR/5LB IN 72HR, (Reported) TAKES A SECOND DOSE OF POTASSIUM ONLY WHEN AN ADDITIONAL FUROSEMIDE 40MG IS GIVEN Last Action: Held Prednisone 2.5 Mg Tablet, 2.5 MG PO DAILY, (Reported) Last Action: Held Sertraline HCl 25 Mg Tablet, 25 MG PO DAILY, (Reported) Last Action: Reviewed Simvastatin 20 Mg Tablet, 20 MG PO DAILY, (Reported) Last Action: Continued Tofacitinib Citrate 11 Mg Tab.er.24h, 11 MG PO DAILY, (Reported) Last Action: Held Warfarin Sodium 2 Mg Tablet, 2 MG PO 1700, (Reported) Last Action: Continued Patient Home Medication List Home Medication List Reviewed: Yes Physical Exam-Cardiology Physical Exam Vital Signs/I&O 01/06/21 01/06/21 01/06/21 01/06/21 12:00 12:33 15:18 17:12 Temp 36.3 36.6 Pulse 87 73 17 Resp 20 17 B/P (MAP) 147/74 (98) 139/66 (90) Pulse Ox 93 91 92 O2 Delivery Vapotherm Vapotherm Vapotherm O2 Flow Rate 25.00 25.00 15.00 50.00 50.00 FiO2 50 01/06/21 01/06/21 01/06/21 01/06/21 19:00 20:19 20:36 21:05 Temp 36.3 Pulse 80 75 Resp 17 B/P (MAP) 149/79 (102) Pulse Ox 93 90 91 O2 Delivery Vapotherm Vapotherm Vapotherm O2 Flow Rate 15.00 15.00 15.00 50.00 FiO2 50 50 01/06/21 00:00 Intake Total 2020 ml Output Total 675 ml Balance 1345 ml Capillary Refill : Less Than 3 Seconds Constitutional: apparent distress HEENT: PERRL; No discharge; hearing is well preserved, oral hygience is good; No ulceration, No xanthelasmas are seen Neck: No carotid bruit; carotid pulses are 2 + bilaterally Respiratory: accessory muscle use, respiratory distress Cardiovascular: irregularly irregular, S1 and S2 Gastrointestinal: soft, audible bowel sounds; No spleenomegaly Rectal: deferred Extremities: No clubbing, No cyanosis; no lower extremity edema bilateral; No significant edema Neurologic/Psychiatric: no motor/sensory deficits, alert, normal mood/affect, oriented x 3, power is 5/5 both on sides Skin: normal color, warm/dry Data Review Labs Laboratory Tests 01/06/21 03:26: White Blood Count 10.0, Red Blood Count 3.36L, Hemoglobin 9.0L, Hematocrit 31L, Mean Corpuscular Volume 92, Mean Corpuscular Hemoglobin 27, Mean Corpuscular Hemoglobin Concent 29L, Red Cell Distribution Width 17.8H, Platelet Count 262, Mean Platelet Volume 9.6, Immature Granulocyte % (Auto) 1, Neutrophils (%) (Auto) 92H, Lymphocytes (%) (Auto) 3L, Monocytes (%) (Auto) 4, Eosinophils (%) (Auto) 0, Basophils (%) (Auto) 0, Neutrophils # (Auto) 9.2H, Lymphocytes # (Auto) 0.3L, Monocytes # (Auto) 0.4, Eosinophils # (Auto) 0.0, Basophils # (Auto) 0.0, Immature Granulocyte # (Auto) 0.1, Prothrombin Time 35.0H, INR Comment 3.4H, Sodium Level 141, Potassium Level 3.2L, Chloride Level 99, Carbon Dioxide Level 34H, Anion Gap 8, Blood Urea Nitrogen 24H, Creatinine 0.70, Estimat Glomerular Filtration Rate > 60, BUN/Creatinine Ratio 34, Glucose Level 142H, Calcium Level 9.4, Corrected Calcium 10.0, Total Bilirubin 0.5, Aspartate Amino Transf (AST/SGOT) 26, Alanine Aminotransferase (ALT/SGPT) 16, Alkaline Phosphatase 32L, Total Protein 6.8, Albumin 3.2 Microbiology 01/05/21 C. difficile GDH Antigen & Toxins - Final, Complete 01/03/21 Urine Culture - Final, Complete Citrobacter amalonaticus Enterococcus faecalis 01/03/21 Blood Culture - Preliminary, Resulted No growth ECG Impression ECG Initial ECG Impression: Atrial Fibrillation A/P-Cardiology Assessment/Admission Diagnosis Acute Respiratory failure, COPD exacerbation, UTI sepsis, Mild acute CHF likely diastolic, Anemia Plan Acute Respiratory failure, likely primarily pulmonary in origin. On vapotherm requiring 25lpm and 80% FiO2. COPD exacerbation, UTI sepsis, IV antibiotics Mild acute CHF likely diastolic, Elevated BNP. Echo. need to be cautious with diuretics. Anemia Thank you for your consultation. Please call me if you have any questions. Kei Crook MD, FACP, FACC, FSCAI, FHRS, CCDS Interventional Cardiology Cardiac Electrophysiology Vascular Medicine and Endovascular Interventions Dulce CROOK MD January 04, 2021 10:53
[2021-01-04] MEDS: fentaNYL INJ 100 MCG/2 ML AMP IVP PRN ×2 (11:42→18:41)
[2021-01-04 11:45] LABS: ABG OXYGEN SATURATION 96 % (94-100); ABG PCO2 60 MMHG (35-45); ABG PH 7.42 (7.37-7.43); ABG PO2 76 MMHG (79-93)
[2021-01-04 11:46] LABS: ALLENS TEST YES-POS; INSPIRED O2 80%; PATIENT TEMP 36.8; VENTILATOR NO
[2021-01-04] MEDS: metroNIDAZOLE 500 MG/100 ML IVPB (PRE-MIX) IV SCH (12:00)
--- NOTE | 2021-01-04 14:24 | Progress Note ---
Subjective Subjective/Events-last exam Patient states that she is feeling better. Still having pain with eating and drinking. No BM for 2 days. Review of Systems Pulmonary: Dyspnea, Cough Cardiovascular: No: Chest Pain, Palpitations, Edema Gastrointestinal: Abdominal Pain; No: Nausea, Vomiting Genitourinary: No Dysuria, No Frequency Neurological: Weakness Focused Exam Lactate Level 01/03/21 10:35: Lactic Acid Level 2.90*H 01/03/21 11:24: Lactic Acid Level 1.89 01/03/21 16:40: Lactic Acid Level 1.00 Time of Focused Exam: 12:45 Objective Exam Last Set of Vital Signs Vital Signs Date Time Temp Pulse Resp B/P (MAP) Pulse Ox O2 Delivery O2 Flow Rate FiO2 01/04/21 14:00 88 25 113/79 (90) 90 Vapotherm 25.00 80.00 01/04/21 11:49 80 01/04/21 11:48 36.8 Capillary Refill : Less Than 3 Seconds I&O Intake and Output 01/04/21 00:00 Intake Total 0 ml Output Total 250 ml Balance -250 ml Intake Oral 0 ml Output Urine Total 250 ml Daily Weight Change No General: Alert, Oriented X3, Mild Distress Lungs: Clear to Auscultation, Normal Air Movement Heart: Regular Rate, No Murmurs Abdomen: Normal Bowel Sounds, Soft, No Masses, Other (diffuse ttp, + distention) Extremities: No Tenderness/Swelling, Other (2+ pitting edema bilaterally) Neuro: Normal Speech, Sensation Intact, Cranial Nerves 3-12 NL Results/Procedures Lab Laboratory Tests 01/03/21 16:40: Lactic Acid Level 1.00 01/03/21 16:48: Blood Gas Puncture Site NA, Blood Gas Patient Temperature 37.6, Arterial Blood pH 7.33*L, Arterial Blood Partial Pressure CO2 78*H, Arterial Blood Partial Pressure O2 80, Arterial Blood HCO3 40H, Arterial Blood Total CO2 42.6H, Arterial Blood Oxygen Saturation 95, Arterial Blood Base Excess 13.9H, Octavio Test NA, Blood Gas Ventilator Setting NO, Blood Gas Inspired Oxygen 70% 01/04/21 02:43: White Blood Count 11.3H, Red Blood Count 3.47L, Hemoglobin 9.4L, Hematocrit 33L, Mean Corpuscular Volume 95, Mean Corpuscular Hemoglobin 27, Mean Corpuscular Hemoglobin Concent 29L, Red Cell Distribution Width 18.0H, Platelet Count 228, Mean Platelet Volume 8.9L, Immature Granulocyte % (Auto) 1, Neutrophils (%) (Auto) 87H, Lymphocytes (%) (Auto) 4L, Monocytes (%) (Auto) 8, Eosinophils (%) (Auto) 0, Basophils (%) (Auto) 0, Neutrophils # (Auto) 9.8H, Lymphocytes # (Auto) 0.5L, Monocytes # (Auto) 0.9, Eosinophils # (Auto) 0.0, Basophils # (Auto) 0.0, Immature Granulocyte # (Auto) 0.1, Neutrophils % (Manual) 63, Lymphocytes % (Manual) 3, Monocytes % (Manual) 9, Band Neutrophils 25, Hypochromasia SLIGHT, Sodium Level 145, Potassium Level 4.2, Chloride Level 99, Carbon Dioxide Level 37H, Anion Gap 9, Blood Urea Nitrogen 17, Creatinine 0.84, Estimat Glomerular Filtration Rate > 60, BUN/Creatinine Ratio 20, Glucose Level 101, Calcium Level 9.2, Corrected Calcium 9.6, Total Bilirubin 0.8, Aspartate Amino Transf (AST/SGOT) 25, Alanine Aminotransferase (ALT/SGPT) 12, Alkaline Phosphatase 32L, B-Type Natriuretic Peptide 686.4H, Total Protein 6.8, Albumin 3.5, Procalcitonin 26.43H 01/04/21 04:44: Blood Gas Puncture Site LEFT RADIAL, Blood Gas Patient Temperature 36.5, Arterial Blood pH 7.45H, Arterial Blood Partial Pressure CO2 56H, Arterial Blood Partial Pressure O2 53L, Arterial Blood HCO3 39H, Arterial Blood Total CO2 40.4H , Arterial Blood Oxygen Saturation 88L, Arterial Blood Base Excess 13.7H, Octavio Test YES-POS, Blood Gas Ventilator Setting NO, Blood Gas Inspired Oxygen 70% 01/04/21 11:39: Blood Gas Puncture Site LT RADIAL, Blood Gas Patient Temperature 36.8, Arterial Blood pH 7.42, Arterial Blood Partial Pressure CO2 60H, Arterial Blood Partial Pressure O2 76L, Arterial Blood HCO3 38H, Arterial Blood Total CO2 40.0H, Arterial Blood Oxygen Saturation 96, Arterial Blood Base Excess 13.0H, Octavio Test YES-POS, Blood Gas Ventilator Setting NO, Blood Gas Inspired Oxygen 80% Microbiology 01/03/21 Urine Culture - Preliminary, Resulted Gram Negative Bacillus 1 Probable Enterococcus Species Assessment/Plan Assessment/Plan (1) Acute on chronic respiratory failure with hypoxia and hypercapnia Status: Acute Assessment & Plan: - Admitted to ICU, currently on bipap, Repeat ABG now, consult Dr Clemens for critical care management 01/04: Patient transitioned to vapotherm, ABG pending, continue antibiotics (2) Sepsis Status: Acute Assessment & Plan: - IVF hydration less then sepsis protocol due to severe pulmonary HTN and CHF, will monitor UOP closely 01/04: Stop IVFs today, HDS Qualifiers: Qualified Codes: A41.9 - Sepsis, unspecified organism; R65.20 - Severe sepsis without septic shock (3) UTI (urinary tract infection) Status: Acute Assessment & Plan: - Rocephin Qualifiers: Qualified Codes: N30.01 - Acute cystitis with hematuria (4) Abdominal pain Status: Acute Assessment & Plan: - Patient with rebound ttp and guarding, CT Chest/Abdomen ordered STAT 01/04: Colitis seen CT, Started Flagyl Qualifiers: Qualified Codes: R10.84 - Generalized abdominal pain (5) Acute CHF Status: Acute Assessment & Plan: - Consult Cardiology, echo ordered Qualifiers: Qualified Codes: I50.9 - Heart failure, unspecified (6) Atrial fibrillation Status: Chronic Assessment & Plan: - Patient on OAC, rate controlled Qualifiers: Qualified Codes: I48.11 - Longstanding persistent atrial fibrillation (7) Normocytic anemia Status: Chronic (8) DVT prophylaxis Status: Acute Assessment & Plan: - MARGARITA Bhatt MD January 04, 2021 14:24
[2021-01-05] MEDS: NS IV 1000 ML 1,000 ML IV SCH ×2 (00:25→13:13)
[2021-01-05] MEDS: methylPREDNISolone 40 MG/ML (Solu-MEDROL) VIAL IV SCH ×4 (00:41→18:11)
[2021-01-05] MEDS: metroNIDAZOLE 500 MG/100 ML IVPB (PRE-MIX) IV SCH ×2 (00:41→11:24)
[2021-01-05] MEDS: RT-ALBUTEROL/IPRATROPIUM 3 ML (DUONEB) VIAL INH SCH ×6 (02:48→22:19)
[2021-01-05 03:48] LABS: BASOPHILS % (AUTO) 0 % (0-10); EOSINOPHILS % (AUTO) 0 % (0-10); HEMATOCRIT 32 % (35-52); HEMOGLOBIN 9.2 g/dL (11.5-16.0); LYMPHOCYTES # (AUTO) 0.4 10^3/uL (1.0-4.0); LYMPHOCYTES % (AUTO) 3 % (12-44); MEAN CORPUSCULAR HEMOGLOBIN 27 pg (25-34); MEAN CORPUSCULAR HGB CONC 29 g/dL (32-36); MEAN CORPUSCULAR VOLUME 94 fL (80-99); MEAN PLATELET VOLUME 9.1 fL (9.0-12.2); MONOCYTES # (AUTO) 0.7 10^3/uL (0.0-1.0); MONOCYTES % (AUTO) 6 % (0-12); NEUTROPHILS # (AUTO) 11.2 10^3/uL (1.8-7.8); NEUTROPHILS % (AUTO) 90 % (42-75); PLATELET COUNT 210 10^3/uL (130-400); WHITE BLOOD COUNT 12.5 10^3/uL (4.3-11.0)
[2021-01-05 03:52] LABS: ALBUMIN 3.3 GM/DL (3.2-4.5); CHLORIDE 97 MMOL/L (98-107); POTASSIUM 3.5 MMOL/L (3.6-5.0); SODIUM 140 MMOL/L (135-145)
[2021-01-05 03:53] LABS: CALCIUM 9.4 MG/DL (8.5-10.1)
[2021-01-05 03:55] LABS: GLUCOSE 151 MG/DL (70-105); TOTAL PROTEIN 6.7 GM/DL (6.4-8.2)
[2021-01-05 03:56] LABS: BILIRUBIN,TOTAL 0.8 MG/DL (0.1-1.0); CARBON DIOXIDE 36 MMOL/L (21-32)
[2021-01-05 03:58] LABS: ALKALINE PHOSPHATASE 30 U/L (40-136); CREATININE SERUM 0.73 MG/DL (0.60-1.30); GFR ESTIMATED > 60
[2021-01-05 03:59] LABS: BUN/CREATININE RATIO 29
[2021-01-05 04:01] LABS: ALANINE AMINOTRANSFERASE 14 U/L (0-55)
[2021-01-05] MEDS: fentaNYL INJ 100 MCG/2 ML AMP IVP PRN (05:23)
[2021-01-05] MEDS ORDERED: WATER (STERILE) FOR INJECTION 10 ML ONE (08:58)
[2021-01-05] MEDS ORDERED: cefTRIAXone 1,000 MG IV (ROCEPHIN) VIAL ONE (08:58)
[2021-01-05] MEDS: cefTRIAXone 1,000 MG/SWFI 10 ML IV PUSH IV SCH ×2 (09:14)
[2021-01-05] MEDS ORDERED: RT-ALBUTEROL SULF 2.5 MG/3 ML PRE-MIX VIAL INH SCH (11:45)
[2021-01-05] MEDS ORDERED: BISACODYL 10 MG SUPP (DULCOLAX) RC PRN (11:45)
[2021-01-05] MEDS ORDERED: polyethylene glycoL POWDER 17 GM (MIRALAX) PACK PO PRN (11:45)
--- NOTE | 2021-01-05 11:57 | Progress Note - Hospitalist ---
Subjective HPI/CC On Admission Date Seen by Provider: January 05, 2021 Time Seen by Provider: 11:00 Subjective/Events-last exam Patient is very tearful this morning and appears anxious. Remains on Vapotherm. Wants to know if she is doing better. Review of Systems Neurological: Weakness Focused Exam Lactate Level 01/03/21 10:35: Lactic Acid Level 2.90*H 01/03/21 11:24: Lactic Acid Level 1.89 01/03/21 16:40: Lactic Acid Level 1.00 Time of Focused Exam: 12:45 Objective Exam Vital Signs Vital Signs Date Time Temp Pulse Resp B/P (MAP) Pulse Ox O2 Delivery O2 Flow Rate FiO2 01/05/21 11:15 36.4 79 22 169/68 (101) 94 Vapotherm 25.00 75.00 01/05/21 10:46 75 Capillary Refill : Less Than 3 Seconds General Appearance: Chronically ill Neck: Limited Range of Motion Respiratory: No Accessory Muscle Use, Decreased Breath Sounds Cardiovascular: Irregularly Irregular, Tachycardia Gastrointestinal: Soft, Tenderness Extremity: Pedal Edema Results/Procedures Lab Laboratory Tests 01/05/21 03:15 Patient resulted labs reviewed. Assessment/Plan Assessment and Plan Assess & Plan/Chief Complaint Sepsis resolving Urinary tract infection on Rocephin Enterococcus sensitivities pending Chronic atrial fibrillation we will restart Coumadin Acute on chronic respiratory failure Anxiety We will restart her home medication IVANA SIMMS MD January 05, 2021 11:57
[2021-01-05] MEDS: DOCUSATE SODIUM 100 MG (COLACE) CAP PO SCH (12:26)
[2021-01-05] MEDS: GABAPENTIN 100 MG (NEURONTIN) CAP PO SCH ×2 (14:00→20:41)
[2021-01-05] MEDS: LORazepam INJ 2 MG/ML (ATIVAN) VIAL IVP PRN (14:01)
[2021-01-05] MEDS: ACETAMINOPHEN 500 MG TAB (TYLENOL) PO PRN (14:01)
--- NOTE | 2021-01-05 15:37 | Cardiology Progress Note ---
Cardiology SOAP Progress Note Subjective: slightly better shortness of breath Objective: I&O/Vital Signs 01/06/21 01/06/21 01/06/21 01/06/21 12:00 12:33 15:18 17:12 Temp 36.3 36.6 Pulse 87 73 17 Resp 20 17 B/P (MAP) 147/74 (98) 139/66 (90) Pulse Ox 93 91 92 O2 Delivery Vapotherm Vapotherm Vapotherm O2 Flow Rate 25.00 25.00 15.00 50.00 50.00 FiO2 50 01/06/21 01/06/21 01/06/21 01/06/21 19:00 20:19 20:36 21:05 Temp 36.3 Pulse 80 75 Resp 17 B/P (MAP) 149/79 (102) Pulse Ox 93 90 91 O2 Delivery Vapotherm Vapotherm Vapotherm O2 Flow Rate 15.00 15.00 15.00 50.00 FiO2 50 50 01/06/21 00:00 Intake Total 2020 ml Output Total 675 ml Balance 1345 ml Constitutional: AAO x 3 Respiratory: respiratory distress, other (poor air entry bilaterally) Cardiovascular: irregularly irregular, S1 and S2 Gastrointestional: soft, audible bowel sounds Extremities: no lower extremity edema bilateral Neurologic/Psychiatric: alert, normal mood/affect Skin: normal color, warm/dry Results/Procedures: Labs Laboratory Tests 01/06/21 03:26: White Blood Count 10.0, Red Blood Count 3.36L, Hemoglobin 9.0L, Hematocrit 31L, Mean Corpuscular Volume 92, Mean Corpuscular Hemoglobin 27, Mean Corpuscular Hemoglobin Concent 29L, Red Cell Distribution Width 17.8H, Platelet Count 262, Mean Platelet Volume 9.6, Immature Granulocyte % (Auto) 1, Neutrophils (%) ( Auto) 92H, Lymphocytes (%) (Auto) 3L, Monocytes (%) (Auto) 4, Eosinophils (%) (Auto) 0, Basophils (%) (Auto) 0, Neutrophils # (Auto) 9.2H, Lymphocytes # (Auto) 0.3L, Monocytes # (Auto) 0.4, Eosinophils # (Auto) 0.0, Basophils # (Auto) 0.0, Immature Granulocyte # (Auto) 0.1, Prothrombin Time 35.0H, INR Comment 3.4H, Sodium Level 141, Potassium Level 3.2L, Chloride Level 99, Carbon Dioxide Level 34H, Anion Gap 8, Blood Urea Nitrogen 24H, Creatinine 0.70, Estim at Glomerular Filtration Rate > 60, BUN/Creatinine Ratio 34, Glucose Level 142H, Calcium Level 9.4, Corrected Calcium 10.0, Total Bilirubin 0.5, Aspartate Amino Transf (AST/SGOT) 26, Alanine Aminotransferase (ALT/SGPT) 16, Alkaline Phosphatase 32L, Total Protein 6.8, Albumin 3.2 Microbiology 01/05/21 C. difficile GDH Antigen & Toxins - Final, Complete 01/03/21 Urine Culture - Final, Complete Citrobacter amalonaticus Enterococcus faecalis 01/03/21 Blood Culture - Preliminary, Resulted No growth A/P: Assessment/Dx: Acute Respiratory failure, COPD exacerbation, UTI sepsis, Mild acute CHF likely diastolic, Anemia Longstanding persistent AF Plan: Acute Respiratory failure, likely primarily pulmonary in origin. On vapotherm requiring 25lpm and 80% FiO2. COPD exacerbation, UTI sepsis, IV antibiotics Mild acute CHF likely diastolic, Elevated BNP. Echo. need to be cautious with diuretics. Anemia, Longstanding persistent AF - on coumadin with therapeutic INR Thank you for your consultation. Please call me if you have any questions. Kei Crook MD, FACP, FACC, FSCAI, FHRS, CCDS Interventional Cardiology Cardiac Electrophysiology Vascular Medicine and Endovascular Interventions Focused Exam Lactate Level Time of Focused Exam: 12:45 Dulce CROOK MD January 05, 2021 15:37
[2021-01-05] MEDS ORDERED: warFARin 2 MG (COUMADIN) TAB PO SCH (17:00)
[2021-01-05] MEDS: LATANOPROST 0.005% (XALATAN) OPHTH SOLN 2.5 ML OU SCH (20:40)
[2021-01-06] MEDS: methylPREDNISolone 40 MG/ML (Solu-MEDROL) VIAL IV SCH ×5 (00:03→23:42)
[2021-01-06] MEDS: metroNIDAZOLE 500 MG/100 ML IVPB (PRE-MIX) IV SCH ×3 (00:03→23:42)
[2021-01-06] MEDS: RT-ALBUTEROL/IPRATROPIUM 3 ML (DUONEB) VIAL INH SCH ×4 (02:42→21:05)
[2021-01-06 03:46] LABS: BASOPHILS % (AUTO) 0 % (0-10); EOSINOPHILS % (AUTO) 0 % (0-10); HEMATOCRIT 31 % (35-52); LYMPHOCYTES # (AUTO) 0.3 10^3/uL (1.0-4.0); LYMPHOCYTES % (AUTO) 3 % (12-44); MEAN CORPUSCULAR HEMOGLOBIN 27 pg (25-34); MEAN CORPUSCULAR HGB CONC 29 g/dL (32-36); MEAN CORPUSCULAR VOLUME 92 fL (80-99); MEAN PLATELET VOLUME 9.6 fL (9.0-12.2); MONOCYTES # (AUTO) 0.4 10^3/uL (0.0-1.0); MONOCYTES % (AUTO) 4 % (0-12); NEUTROPHILS # (AUTO) 9.2 10^3/uL (1.8-7.8); NEUTROPHILS % (AUTO) 92 % (42-75); PLATELET COUNT 262 10^3/uL (130-400)
[2021-01-06 03:57] LABS: ALBUMIN 3.2 GM/DL (3.2-4.5); CHLORIDE 99 MMOL/L (98-107); POTASSIUM 3.2 MMOL/L (3.6-5.0); SODIUM 141 MMOL/L (135-145)
[2021-01-06 03:58] LABS: CALCIUM 9.4 MG/DL (8.5-10.1)
[2021-01-06 03:59] LABS: GLUCOSE 142 MG/DL (70-105)
[2021-01-06 04:00] LABS: TOTAL PROTEIN 6.8 GM/DL (6.4-8.2)
[2021-01-06 04:01] LABS: BILIRUBIN,TOTAL 0.5 MG/DL (0.1-1.0); CARBON DIOXIDE 34 MMOL/L (21-32)
[2021-01-06 04:03] LABS: ALKALINE PHOSPHATASE 32 U/L (40-136); GFR ESTIMATED > 60
[2021-01-06 04:04] LABS: BUN/CREATININE RATIO 34
[2021-01-06 04:06] LABS: ALANINE AMINOTRANSFERASE 16 U/L (0-55)
[2021-01-06] MEDS: GABAPENTIN 100 MG (NEURONTIN) CAP PO SCH ×3 (06:30→20:30)
[2021-01-06] MEDS: LEVOTHYROXINE 75 MCG (LEVOTHROID) TABLET PO SCH (06:30)
[2021-01-06 06:53] LABS: INR 3.4 (0.8-1.4)
[2021-01-06 07:06] VITALS: BP 132/71
[2021-01-06] MEDS ORDERED: RT-ALBUTEROL/IPRATROPIUM 3 ML (DUONEB) VIAL INH PRN (07:15)
[2021-01-06] MEDS ORDERED: cefTRIAXone 1,000 MG IV (ROCEPHIN) VIAL ONE (08:11)
[2021-01-06] MEDS ORDERED: WATER (STERILE) FOR INJECTION 10 ML ONE (08:11)
[2021-01-06] MEDS: DIGOXIN 0.125 MG (LANOXIN) TAB PO SCH (08:33)
[2021-01-06] MEDS: PANTOPRAZOLE 40 MG (PROTONIX) TAB PO SCH (08:33)
[2021-01-06] MEDS: SIMvastatin 20 MG (ZOCOR) TAB PO SCH (08:33)
[2021-01-06] MEDS: cefTRIAXone 1,000 MG/SWFI 10 ML IV PUSH IV SCH ×2 (08:34)
[2021-01-06] MEDS: NS IV 1000 ML 1,000 ML IV SCH (11:34)
[2021-01-06] MEDS ORDERED: VANCOMYCIN INJECTION 0.1 MG in NS (IVPB) 250 ML IV SCH (11:45)
[2021-01-06] MEDS ORDERED: VANCOMYCIN 1500 MG/NS 500 ML IVPB IV NR ×2 (12:00)
[2021-01-06] MEDS ORDERED: MICONAZOLE 2% POWDER (DESENEX AF) 90 GM TOP SCH (12:47)
--- NOTE | 2021-01-06 13:20 | Progress Note - Hospitalist ---
Subjective HPI/CC On Admission Date Seen by Provider: January 06, 2021 Time Seen by Provider: 13:00 Subjective/Events-last exam She complains of a rash that she uses powder for underneath her panniculus, and her right elbow is tender where she leans on it Review of Systems Pulmonary: Dyspnea Genitourinary: Incontinence Focused Exam Lactate Level 01/03/21 16:40: Lactic Acid Level 1.00 Time of Focused Exam: 12:45 Objective Exam Vital Signs Vital Signs Date Time Temp Pulse Resp B/P (MAP) Pulse Ox O2 Delivery O2 Flow Rate FiO2 01/06/21 12:33 73 01/06/21 12:00 36.3 20 147/74 (98) 93 Vapotherm 25.00 50.00 01/06/21 09:00 50 Capillary Refill : Less Than 3 Seconds General Appearance: Chronically ill Neck: Non Tender, Supple, Limited Range of Motion Respiratory: Chest Non Tender, Lungs Clear, Normal Breath Sounds, No Accessory Muscle Use, No Respiratory Distress Cardiovascular: No Gallop, Irregularly Irregular Gastrointestinal: Normal Bowel Sounds, Non Tender, Soft Rectal: Deferred Extremity: Pedal Edema Neurologic/Psychiatric: Alert Skin: Damp (Under panniculus) Results/Procedures Lab Laboratory Tests 01/06/21 03:26 Patient resulted labs reviewed. Assessment/Plan Assessment and Plan Assess & Plan/Chief Complaint Sepsis resolving Urinary tract infection on Rocephin ;Enterococcus sensitive to vancomycin will start today Chronic atrial fibrillation we will restart Coumadin-hold tonight as INR is 3.2 Acute on chronic respiratory failure Anxiety Candidiasis -start nystatin under her panniculus Pad right elbow COPD-currently on Vapotherm IVANA SIMMS MD January 06, 2021 13:20
[2021-01-06] MEDS ORDERED: MICONAZOLE 2% POWDER (DESENEX AF) 90 GM TOP PRN (14:30)
[2021-01-06] MEDS: LATANOPROST 0.005% (XALATAN) OPHTH SOLN 2.5 ML OU SCH (20:30)
[2021-01-06] MEDS: VANCOMYCIN 1 GM/NS 250 ML IVPB IV SCH ×2 (21:25)
--- NOTE | 2021-01-06 21:57 | Cardiology Progress Note ---
Cardiology SOAP Progress Note Subjective: slightly improving shortness of breath Objective: I&O/Vital Signs 01/06/21 01/06/21 01/06/21 01/06/21 12:00 12:33 15:18 17:12 Temp 36.3 36.6 Pulse 87 73 17 Resp 20 17 B/P (MAP) 147/74 (98) 139/66 (90) Pulse Ox 93 91 92 O2 Delivery Vapotherm Vapotherm Vapotherm O2 Flow Rate 25.00 25.00 15.00 50.00 50.00 FiO2 50 01/06/21 01/06/21 01/06/21 01/06/21 19:00 20:19 20:36 21:05 Temp 36.3 Pulse 80 75 Resp 17 B/P (MAP) 149/79 (102) Pulse Ox 93 90 91 O2 Delivery Vapotherm Vapotherm Vapotherm O2 Flow Rate 15.00 15.00 15.00 50.00 FiO2 50 50 01/06/21 00:00 Intake Total 2020 ml Output Total 675 ml Balance 1345 ml Constitutional: AAO x 3 Respiratory: respiratory distress, other (poor air entry bilaterally) Cardiovascular: irregularly irregular, S1 and S2 Gastrointestional: soft, audible bowel sounds Extremities: no lower extremity edema bilateral Neurologic/Psychiatric: alert, normal mood/affect Skin: normal color, warm/dry Results/Procedures: Labs Laboratory Tests 01/06/21 03:26: White Blood Count 10.0, Red Blood Count 3.36L, Hemoglobin 9.0L, Hematocrit 31L, Mean Corpuscular Volume 92, Mean Corpuscular Hemoglobin 27, Mean Corpuscular Hemoglobin Concent 29L, Red Cell Distribution Width 17.8H, Platelet Count 262, Mean Platelet Volume 9.6, Immature Granulocyte % (Auto) 1, Neutrophils (%) (Auto) 92H, Lymphocytes (%) (Auto) 3L, Monocytes (%) (Auto) 4, Eosinophils (%) (Auto) 0, Basophils (%) (Auto) 0, Neutrophils # (Auto) 9.2H, Lymphocytes # (Auto) 0.3L, Monocytes # (Auto) 0.4, Eosinophils # (Auto) 0.0, Basophils # (Auto) 0.0, Immature Granulocyte # (Auto) 0.1, Prothrombin Time 35.0H, INR Comment 3.4H, Sodium Level 141, Potassium Level 3.2L, Chloride Level 99, Carbon Dioxide Level 34H, Anion Gap 8, Blood Urea Nitrogen 24H, Creatinine 0.70, Es timat Glomerular Filtration Rate > 60, BUN/Creatinine Ratio 34, Glucose Level 142H, Calcium Level 9.4, Corrected Calcium 10.0, Total Bilirubin 0.5, Aspartate Amino Transf (AST/SGOT) 26, Alanine Aminotransferase (ALT/SGPT) 16, Alkaline Phosphatase 32L, Total Protein 6.8, Albumin 3.2 Microbiology 01/05/21 C. difficile GDH Antigen & Toxins - Final, Complete 01/03/21 Urine Culture - Final, Complete Citrobacter amalonaticus Enterococcus faecalis 01/03/21 Blood Culture - Preliminary, Resulted No growth A/P: Assessment/Dx: Acute Respiratory failure, COPD exacerbation, UTI sepsis, Mild acute CHF likely diastolic, Anemia Longstanding persistent AF Plan: Acute Respiratory failure, likely primarily pulmonary in origin. On vapotherm requiring 25lpm and 50% FiO2. COPD exacerbation, UTI sepsis, IV antibiotics Mild acute CHF likely diastolic, Elevated BNP. Echo - shows normal LVEF with severe TR and pulmonary HTN. need to be cautious with diuretics. Anemia, Longstanding persistent AF - on coumadin with therapeutic INR Thank you for your consultation. Please call me if you have any questions. Kei Crook MD, FACP, FACC, FSCAI, FHRS, CCDS Interventional Cardiology Cardiac Electrophysiology Vascular Medicine and Endovascular Interventions Focused Exam Time of Focused Exam: 12:45 Dulce CROOK MD January 06, 2021 21:56
[2021-01-07] MEDS: RT-ALBUTEROL/IPRATROPIUM 3 ML (DUONEB) VIAL INH SCH ×4 (03:04→18:17)
[2021-01-07 05:32] LABS: BASOPHILS % (AUTO) 0 % (0-10); EOSINOPHILS % (AUTO) 0 % (0-10); HEMATOCRIT 32 % (35-52); HEMOGLOBIN 9.6 g/dL (11.5-16.0); LYMPHOCYTES # (AUTO) 0.3 10^3/uL (1.0-4.0); LYMPHOCYTES % (AUTO) 5 % (12-44); MEAN CORPUSCULAR HEMOGLOBIN 27 pg (25-34); MEAN CORPUSCULAR HGB CONC 30 g/dL (32-36); MEAN CORPUSCULAR VOLUME 92 fL (80-99); MEAN PLATELET VOLUME 9.1 fL (9.0-12.2); MONOCYTES # (AUTO) 0.3 10^3/uL (0.0-1.0); MONOCYTES % (AUTO) 5 % (0-12); NEUTROPHILS # (AUTO) 5.1 10^3/uL (1.8-7.8); NEUTROPHILS % (AUTO) 88 % (42-75); PLATELET COUNT 278 10^3/uL (130-400); WHITE BLOOD COUNT 5.8 10^3/uL (4.3-11.0)
[2021-01-07 05:43] LABS: ALBUMIN 3.3 GM/DL (3.2-4.5); CHLORIDE 98 MMOL/L (98-107); POTASSIUM 3.2 MMOL/L (3.6-5.0); SODIUM 139 MMOL/L (135-145)
[2021-01-07 05:44] LABS: INR 2.7 (0.8-1.4); PROTHROMBIN TIME PATIENT 29.1 SEC (12.2-14.7)
[2021-01-07] MEDS: methylPREDNISolone 40 MG/ML (Solu-MEDROL) VIAL IV SCH ×3 (05:44→17:20)
[2021-01-07] MEDS: LEVOTHYROXINE 75 MCG (LEVOTHROID) TABLET PO SCH (05:44)
[2021-01-07] MEDS: GABAPENTIN 100 MG (NEURONTIN) CAP PO SCH ×3 (05:44→20:55)
[2021-01-07 05:45] LABS: CALCIUM 9.3 MG/DL (8.5-10.1)
[2021-01-07 05:46] LABS: GLUCOSE 136 MG/DL (70-105); TOTAL PROTEIN 6.8 GM/DL (6.4-8.2)
[2021-01-07 05:47] LABS: CARBON DIOXIDE 33 MMOL/L (21-32)
[2021-01-07 05:48] LABS: BILIRUBIN,TOTAL 0.5 MG/DL (0.1-1.0)
[2021-01-07 05:49] LABS: ALKALINE PHOSPHATASE 36 U/L (40-136); CREATININE SERUM 0.73 MG/DL (0.60-1.30); GFR ESTIMATED > 60
[2021-01-07 05:50] LABS: BUN/CREATININE RATIO 34
[2021-01-07 05:52] LABS: ALANINE AMINOTRANSFERASE 19 U/L (0-55)
[2021-01-07] MEDS ORDERED: MAGNESIUM 1 GM/100 ML IVPB 100 ML IV ONE (07:30)
[2021-01-07] MEDS: POTASSIUM CL 10MEQ/50ML IVPB 50 ML IV SCH ×4 (08:07→13:33)
[2021-01-07] MEDS ORDERED: cefTRIAXone 1,000 MG/SWFI 10 ML IV PUSH IV SCH ×2 (09:00)
[2021-01-07] MEDS: VANCOMYCIN 1 GM/NS 250 ML IVPB IV SCH ×4 (10:06→22:49)
[2021-01-07] MEDS: SIMvastatin 20 MG (ZOCOR) TAB PO SCH (10:07)
[2021-01-07] MEDS: PANTOPRAZOLE 40 MG (PROTONIX) TAB PO SCH (10:07)
[2021-01-07] MEDS: DIGOXIN 0.125 MG (LANOXIN) TAB PO SCH (10:07)
--- NOTE | 2021-01-07 10:38 | Progress Note - Hospitalist ---
Subjective HPI/CC On Admission Date Seen by Provider: January 07, 2021 Time Seen by Provider: 09:45 Subjective/Events-last exam Pt doing pretty well Remains on Vapotherm at 55% Will DC catheter since she is up to a commode PT and OT will be ordered Swingbed status may be required Coumadin will be restarted since INR is 2.7 down from 3.4 Enterococcus on UTI so Vancomycin started yesterday Pt confused but she does have dementia Review of Systems General: Fatigue, Malaise Pulmonary: Dyspnea Neurological: Weakness, Confusion Focused Exam Time of Focused Exam: 12:45 Objective Exam Vital Signs Vital Signs Date Time Temp Pulse Resp B/P (MAP) Pulse Ox O2 Delivery O2 Flow Rate FiO2 01/08/21 04:34 36.0 56 16 174/73 (106) 90 Vapotherm 15.00 45.00 01/08/21 02:31 45 Capillary Refill : Less Than 3 Seconds General Appearance: No Apparent Distress, WD/WN, Anxious, Chronically ill Respiratory: No Accessory Muscle Use, No Respiratory Distress, Decreased Breath Sounds Cardiovascular: Regular Rate, Rhythm Neurologic/Psychiatric: Alert, Oriented x3, Disoriented Results/Procedures Lab Patient resulted labs reviewed. Assessment/Plan Assessment and Plan Assess & Plan/Chief Complaint Assessment: Acute respiratory failure AF long standing OAC Dementia Plan: Vapotherm PT OT DC Cath LEBRON MENA DO January 07, 2021 10:38
--- NOTE | 2021-01-07 10:50 | Progress Note - Cardiology ---
Cardiology SOAP Progress Note Objective: I&O/Vital Signs 01/08/21 01/08/21 01/08/21 01/08/21 00:57 02:31 04:34 07:24 Temp 36.4 36.0 Pulse 64 56 Resp 18 16 B/P (MAP) 156/81 (106) 174/73 (106) Pulse Ox 90 90 90 90 O2 Delivery Vapotherm Vapotherm Vapotherm Vapotherm O2 Flow Rate 15.00 15.00 15.00 15.00 45.00 45.00 FiO2 45 45 01/08/21 00:00 Intake Total 1320 ml Output Total 675 ml Balance 645 ml Constitutional: AAO x 3 Respiratory: respiratory distress, other (poor air entry bilaterally) Cardiovascular: irregularly irregular, S1 and S2 Gastrointestional: soft, audible bowel sounds Extremities: no lower extremity edema bilateral Neurologic/Psychiatric: alert, normal mood/affect Skin: normal color, warm/dry Results/Procedures: Labs Laboratory Tests 01/07/21 21:00: Vancomycin Level Trough 15.8 01/08/21 05:40: White Blood Count 7.6, Red Blood Count 3.79L, Hemoglobin 10.3L, Hematocrit 35, Mean Corpuscular Volume 92, Mean Corpuscular Hemoglobin 27, Mean Corpuscular Hemoglobin Concent 30L, Red Cell Distribution Width 17.6H, Platelet Count 283, Mean Platelet Volume 9.2, Immature Granulocyte % (Auto) 4, Neutrophils (%) (Auto) 85H, Lymphocytes (%) (Auto) 4L, Monocytes (%) (Auto) 7, Eosinophils (%) (Auto) 0, Basophils (%) (Auto) 0, Neutrophils # (Auto) 6.5, Lymphocytes # (Auto) 0.3L, Monocytes # (Auto) 0.5, Eosinophils # (Auto) 0.0, Basophils # (Auto) 0.0, Immature Granulocyte # (Auto) 0.3H, Prothrombin Time 23.8H, INR Comment 2.1H, Sodium Level 140, Potassium Level 3.9, Chloride Level 101, Carbon Dioxide Level 32, Anion Gap 7, Blood Urea Nitrogen 23H, Creatinine 0.72, Estimat Glomerular Filtration Rate > 60, BUN/Creatinine Ratio 32, Glucose Level 138H, Calcium Level 9.4, Corrected Calcium 9.9, Total Bilirubin 0.4, Aspartate Amino Transf (A ST/SGOT) 32, Alanine Aminotransferase (ALT/SGPT) 31, Alkaline Phosphatase 47, B- Type Natriuretic Peptide 307.9H, Total Protein 7.0, Albumin 3.4 Microbiology 01/05/21 C. difficile GDH Antigen & Toxins - Final, Complete 01/03/21 Urine Culture - Final, Complete Citrobacter amalonaticus Enterococcus faecalis 01/03/21 Blood Culture - Preliminary, Resulted No growth Procedures NAME: AUNDREA REEVES [facility] REC#: [id number] PT STATUS: ADM IN : 1935 PHYSICIAN: MARGARITA HAYES MD ADMIT DATE: 01/03/21/ICU Signed Date of Exam:01/03/21 CT MARSHALL CHEST/NOANG ABD-PELV W INDICATION: Severe abdominal pain. Abdominal distention. Shortness of air. Hypoxia. CTA chest, abdomen and pelvis Thin axial sections through the chest, abdomen and pelvis are obtained following intravenous contrast bolus. Multiplanar MIP images were reconstructed and reviewed. All CT scans use one or more of the following dose optimizing techniques: automated exposure control, MA and/or KvP adjustment based on patient size and exam type or iterative reconstruction. COMPARISON: 04/30/2020 FINDINGS: CTA chest: There is no evidence of acute pulmonary embolus to the 1st subsegmental division of the pulmonary arteries. Main pulmonary arterial trunk is enlarged. It measures 3.8 cm in diameter. There is also severe cardiomegaly, right greater than left. Thoracic aorta is suboptimally opacified to assess for dissection. There is moderate diffuse calcified aortic atherosclerosis. By NASCET criteria, there is no focal significant stenosis. There is no evidence of aneurysm. There is no large pericardial effusion. There is moderate calcified coronary atherosclerosis. No pathologically enlarged or morphologically abnormal adenopathy is seen within the mediastinum, aurelio, nor axilla. Evaluation of lung erickson demonstrates consolidative opacities within both lung bases. Enhancement characteristics suggest atelectasis. There are geographic areas of groundglass density as well. Note is also made of 5 mm micronodule within the superior segment of the right lower lobe (image 72, series 4). There is no large effusion or pneumothorax. Osseous structures show age-related degenerative changes. No acute bony abnormalities are seen. CT ABDOMEN: There is colonic diverticulosis. Note is made of stranding of the pericolonic fat surrounding the sigmoid colon. There is also thickened appearance to the wall of the sigmoid colon. Findings are concerning for acute diverticulitis. Note is made of cecal bascule. Normal appendix cannot be adequately identified. Small bowel loops are nondistended. There is small amount of ascites scattered throughout the abdomen and pelvis. There is no loculated fluid collection or free air. There is no pneumatosis nor portal venous gas. Gallbladder is mildly distended. Please note, CT is suboptimal to assess for cholelithiasis. Indwelling left-sided double-J ureteral stent is present. Stent appears to be in appropriate position. Patency of the stent cannot be assessed, but there has been significant interval improvement in left-sided hydronephrosis. Kidneys have an otherwise normal CT appearance. Adrenal glands, spleen, and pancreas have a normal CT appearance, as does the liver. Indwelling IVC filter is noted. There is advanced diffuse calcified aortic arch atherosclerosis. No abnormal mesenteric or retroperitoneal adenopathy is seen. Advanced degenerative changes of scoliotic deformity of the thoracal lumbar spine are also noted. CT ABDOMEN: Urinary bladder is minimally distended. Corral catheter is present within urinary bladder. There is associated urinary bladder wall thickening. There is small amount of free fluid within the pelvis. There may be more focal loculated air-fluid collection within the posterior left pelvis that measures 3 x 3.6 cm. There is no free air. No abnormal adenopathy is seen. IMPRESSION: 1. Colonic diverticulosis with findings concerning for acute sigmoidal diverticulitis. 2. Small amount of ascites throughout the abdomen or pelvis. Additionally, there may be more focal loculated fluid collection within the posterior left pelvis concerning for abscess. 3. Interval placement of left-sided double-J ureteral stent with decompression of left renal collecting system. 4. Bladder wall thickening. This may be artifact related to incomplete distention, but may also be seen with cystitis. Clinical correlation is recommended. 5. Consolidative airspace opacities bilaterally. Atelectasis is favored. Some component of infiltrate is not entirely excluded. 6. No acute pulmonary embolus. 7. Enlargement of the main pulmonary arterial trunks. Findings can be seen with underlying pulmonary arterial hypertension. 8. Significant cardiomegaly. 9. Small micronodule of the right lower lobe. One-year followup is recommended to ensure stability. Called and faxed to [facility] at 8:40 P.M. by cvb. Dictated by: Dictated on workstation # [id number] Dict: 01/03/212022 Trans: 01/04/21 114 CVB [id number] Interpreted by: KARISSA KING MD Electronically signed by: KARISSA KING MD 01/04/21 1144 A/P: Assessment: Acute Respiratory failure, likely multifactorial d/t acute on chronic exacerbation of COPD, acute on chronic systolic/diastolic CHF Acute on chronic exacerbation of COPD UTI sepsis Acute systolic/diastolic CHF Echo by Dr. Crook on 01-04-21- shows LVEF 55-65%. Reduced systolic function with increased systolic pressure. LA and RA severely dilated. PASP 70-75 mmHg. TR. Anemia Chronic AF - rate controlled Chronic OAC with coumadin - therapeutic INR Hypokalemia - replace Indwelling IVC filter is noted on CT of the abdomen from 01-03-21 Plan: Continue current medication regimen Replace electrolytes Monitor lab closely Monitor INR closely - adjust warfarin dose as indicated We have reviewed Dr. Crook's notes MILA CANNON January 07, 2021 10:50
[2021-01-07] MEDS: metroNIDAZOLE 500 MG/100 ML IVPB (PRE-MIX) IV SCH (12:20)
[2021-01-07] MEDS: DOCUSATE SODIUM 100 MG (COLACE) CAP PO SCH (12:21)
[2021-01-07] MEDS: ACETAMINOPHEN 500 MG TAB (TYLENOL) PO PRN (14:24)
--- NOTE | 2021-01-07 14:36 | Physical Therapy Evaluation ---
PT Evaluation-General Medical Diagnosis Admission Date January 03, 2021 at 12:35 Medical Diagnosis: cystitis with hematuria/sepsis/hypoxia Onset Date: January 03, 2021 Therapy Diagnosis Therapy Diagnosis: generalized weakness/debility Precautions Precautions/Isolations: Fall Prevention, Standard Precautions Referral Physician: Carlos Reason for Referral: Evaluation/Treatment Medical History Pertinent Medical History: Atrial Fib, Heart Failure, HTN, Hypothroidism, Rheumatoid Arthritis Current History EMS secondary to SOA Reviewed History: Yes Social History Home: Assisted Living Prior Prior Level of Function SCALE: Activities may be completed with or without assistive devices. 5-[id number] completes the activity by him/herself with no assistance from a helper. 5-Set-up or Clean-up Assistance-helper sets up or cleans up; patient completes activity. [place] assists only prior to or following the activity. 4-Supervision or Touching Assistance-helper provides verbal cues and/or touching/steadying and/or contact guard assistance as patient completes activity. Assistance may be provided throughout the activity or intermittently. 3-Partial/Moderate Assistance-helper does LESS THAN HALF the effort. [place] lifts, holds or supports trunk or limbs, but provides less than half the effort. 2-Substantial/Maximal Assistance-helper does MORE THAN HALF the effort. [place] lifts or holds trunk or limbs and provides more than half the effort. 4-Lcpvsbepr-eddgna does ALL the effort. Patient does none of the effort to complete the activity. Or, the assistance of 2 or more helpers is required for the patient to complete the activity. If activity was not attempted, code reason: 7-Patient Refused. 9-Not Applicable-not attempted and the patient did not perform the activity before the current illness, exacerbation or injury. 10-Not Attempted due to Environmental Limitations-(lack of equipment, weather restraints, etc.). 88-Not Attempted due to Medical Conditions or Safety Concerns. Bed Mobility: 6 Transfers (B,C,W/C): 6 Gait: 6 Stairs: 9 Wheelchair Mobility: 6 Indoor Mobility (Ambulation): Independent Stairs: Not [place] Prior Devices Use: Manual wheelchair, Walker w/c for long distances and patient uses this going backward PT Evaluation-Current Subjective Patient agrees to PT. Objective Patient Orientation: Normal For Age Attachments: Oxygen (vapotherm), IV ROM/Strength ROM Lower Extremities bilateral LE WFL Strength Lower Extremities 4-/5 grossly bilateral LE Integumentary/Posture Integumentary refer to nursing notes Bowel Incontinence: No Bladder Incontinence: Yes Posture scoliosis/kyphosis Neuromuscular (Tone, Coordination, Reflexes) grossly intact Sensory Vision: Wears Glasses Hearing: Functional Transfers Roll Left to Right (QC): 6 Sit to Lying (QC): 4 (SBA) Lying to Sitting/Side of Bed(Q: 4 (SBA) Sit to Stand (QC): 4 (SBA) Toilet Transfer (QC): 4 (SBA) assisted patient with toileting Gait Does the Patient Walk?: Yes Mode of Locomotion: Both Anticipated Mode of Locomotion: Both Walk 10 feet (QC): 4 (SBA) Walk 50 ft with 2 Turns(QC): 88 Walk 150 ft (QC): 88 Gait Assistive Device: FWW Balance Sitting Static: Normal Sitting Dynamic: Normal Standing Static: Normal Standing Dynamic: Normal Assessment/Needs 85 y.o. female, will benefit from skilled PT to address functional strength and mobility to improve current LOF to safely return to [place] at maximum LOF. Patient is currently limited due to vapotherm. Rehab Potential: Fair PT Half-Way Goals Half-Way Goals PT Vice President Medical Affairs Goals Time Frame: January 19, 2021 Roll Left & Right (QC): 6 Sit to Lying (QC): 6 Lying-Sitting on Side/Bed(QC): 6 Sit to Stand (QC): 6 Chair/Nod-ht-Dztea Xfer(QC): 6 Toilet Transfer (QC): 6 Does the Patient Walk: Yes Walk 10 feet (QC): 6 Walk 50ft with 2 Turns (QC): 6 Walk 150 ft (QC): 6 PT Plan Problem List Problem List: Activity Tolerance, Functional Strength, Balance, Gait, Transfer, Bed Mobility Treatment/Plan Treatment Plan: Continue Plan of Care Treatment Plan: Bed Mobility, Education, Functional Activity [place], Functional Strength, Gait, Safety, Therapeutic Exercise, Transfers Treatment Duration: January 19, 2021 Frequency: 6 times per week Estimated Hrs Per Day: .25 hour per day Patient and/or Family Agrees t: Yes Time/GCodes Time In: 1340 Time Out: 1405 Total Billed Treatment Time: 25 Total Billed Treatment 1 visit EVModC 13 min FA 12 min EFRAIN CHERY PT January 07, 2021 14:36
--- NOTE | 2021-01-07 15:17 | Occupational Therapy Eval ---
OT Evaluation-General/PLF Medical Diagnosis Admission Date January 03, 2021 at 12:35 Medical Diagnosis: UTI, Resp Failure, Sepsis Onset Date: January 03, 2021 Therapy Diagnosis Therapy Diagnosis: Weakness, Decreased ADL skills Precautions Precautions/Isolations: Fall Prevention, Standard Precautions Weight Bear Status Weight Bearing Restriction: Weight Bearing/Tolerated Referral Physician: Carlos Faustin Reason: Activity Tolerance, Self Care, Evaluation/Treatment, Strengthening/ROM Medical History Pertinent Medical History: Atrial Fib, CAD, COPD, Heart Failure, HTN, Hypothroidism, Rheumatoid Arthritis Current History Pt. lives in Assisted Living. Experiencing SOA for approximately 2 weeks. Oxygen dependent. Came to ER and put on bipap. Found to have UTI and to be septic. Reviewed History: Yes Social History Home: Assisted Living Current Living Status: Entry Into Home: Level Entry ADL-Prior Level of Function SCALE: Activities may be completed with or without assistive devices. 5-Vtsradtkmz-zqcsfxs completes the activity by him/herself with no assistance from a helper. 5-Set-up or Clean-up Assistance-helper sets up or cleans up; patient completes activity. [place] assists only prior to or following the activity. 4-Supervision or Touching Assistance-helper provides verbal cues and/or touching/steadying and/or contact guard assistance as patient completes a ctivity. Assistance may be provided throughout the activity or intermittently. 3-Partial/Moderate Assistance-helper does LESS THAN HALF the effort. [place] lifts, holds or supports trunk or limbs, but provides less than half the effort. 2-Substantial/Maximal Assistance-helper does MORE THAN HALF the effort. [place] lifts or holds trunk or limbs and provides more than half the effort. 5-Bbixdlvji-zjyrmm does ALL the effort. Patient does none of the effort to complete the activity. Or, the assistance of 2 or more helpers is required for the patient to complete the activity. If activity was not attempted, code reason: 7-Patient Refused. 9-Not Applicable-not attempted and the patient did not perform the activity before the current illness, exacerbation or injury. 10-Not Attempted due to Environmental Limitations-(lack of equipment, weather restraints, etc.). 88-Not Attempted due to Medical Conditions or Safety Concerns. ADL PLOF Comments Pt. lives in assisted living. States that she needs some help with her showers, and occasionally needs help donning her socks and with other ADLs depending how tired she is. She uses a walker for ambulation. Self Care: Needed Some Help Functional Cognition: Unknown DME/Equipment Comments Walker OT Current Status Subjective pt. does not report pain but does report difficulty with her memory and feeling fatigued. Appearance Pt. up in chair. She has just finished her lunch. Daughter is at her side. Mental Status/Objective Patient Orientation: Person Attachments: [place] Catheter, IV, Oxygen (vapotherm) Current Glasses/Contacts: Yes Hand Dominance: Right Upper Extremity ROM WFL Upper Extremity Strength 3/5 frame stripper and crusher strength. ADL-Treatment Eating (QC): 4 (SBA reported by daughter.) Lower Body Dressing (QC): 2 (Pt. requires max assist for OT to don compression socks and slippers.) On/Off Footwear (QC): 2 Pt. stands from chair with min assist. She is able to take steps with walker and transfer to [facility] with cues. Pt. is positioned on commode to comfort level. Pt. with call light and daughter present. All needs met. Both pt. and daughter educated on purpose of Occupational therapy to increase overall strength and i ndependence. Both verbalize understanding. Education OT Patient Education: Correct positioning, Modified ADL techniques, Progress toward Goal/Update tx plan, Purpose of tx/functional activities, Reviewed precautions, Rehab process, Transfer techniques Teaching Recipient: Patient Teaching Methods: Demonstration, Discussion Response to Teaching: Verbalize Understanding, Return Demonstration, Reinforcement Needed OT Short Term Goals Short Term Goals Time Frame: January 14, 2021 Eatin Oral hygiene: 4 Toileting hygiene: 3 Shower/bathe self: 3 Upper body dressin Lower body dressin Putting on/taking off footwear: 3 OT Youth Program Director Goals Youth Program Director Goals Time Frame: January 21, 2021 Eating (QC): 6 Oral Hygiene (QC): 5 Toileting Hygiene (QC): 5 Shower/Bathe Self (QC): 4 Upper Body Dressing (QC): 5 Lower Body Dressing (QC): 4 On/Off Footwear (QC): 3 Additional Goals: 1-Demonstrate ADL Tasks, 2-Verbalize Understanding, 3- ImproveStrength/[place] 1=Demonstrate adherence to instructed precautions during ADL tasks. 2=Patient will verbalize/demonstrate understanding of assistive devices/modifications for ADL. 3=Patient will improve strength/tolerance for activity to enable patient to perform ADL's. OT Education/Plan Problem List/Assessment Assessment: Decreased Activ Tolerance, Decreased UE Strength, Dependent Transfers, Impaired Bed Mobility, Impaired Funct Balance, Impaired I ADL's, Impaired Self-Care Skills Discharge Recommendations Plan/Recommendations: Continue POC Therapy Discharge Recommendati: Post Acute OT Treatment Plan/Plan of Care Treatment,Training & Education: Yes Patient would benefit from OT for education, treatment and training to promote independence in ADL's, mobility, safety and/or upper extremity function for ADL's. Plan of Care: ADL Retraining, Functional Mobility, UE Funct Exercise/Act Treatment Duration: January 21, 2021 Frequency: 5 times per week Estimated Hrs Per Day: .25 hour per day Agreement: Yes Rehab Potential: Fair Time/GCodes Start Time: 12:55 Stop Time: 13:18 Total Time Billed (hr/min): 23 Billed Treatment Time 1, EVM x 10minutes, ADL x 13minutes IVANIA LLANOS OT January 07, 2021 15:16
[2021-01-07] MEDS ORDERED: warFARin 1 MG (COUMADIN) TAB PO SCH (17:00)
--- NOTE | 2021-01-07 18:21 | Progress Note - Cardiology ---
Cardiology SOAP Progress Note Subjective: Gen malaise and weakness No cp or palp or syncope Chronic exertional shortness of breath No n/v/d Objective: I&O/Vital Signs 01/07/21 01/07/21 01/07/21 01/07/21 06:58 08:00 09:00 09:58 Temp 36.1 Pulse 69 65 Resp 16 B/P (MAP) 181/87 (118) Pulse Ox 91 94 94 O2 Delivery Vapotherm Vapotherm Vapotherm O2 Flow Rate 15.00 15.00 15.00 55.00 FiO2 55 01/07/21 01/07/21 01/07/21 01/07/21 12:00 12:31 14:54 16:00 Temp 35.7 36.3 Pulse 71 71 64 Resp 18 18 B/P (MAP) 172/68 (102) 145/80 (101) Pulse Ox 94 94 94 O2 Delivery Vapotherm Vapotherm Vapotherm O2 Flow Rate 15.00 15.00 15.00 50.00 45.00 FiO2 45 01/07/21 18:17 Pulse Ox 90 O2 Delivery Vapotherm O2 Flow Rate 15.00 FiO2 45 01/07/21 00:00 Intake Total 2165 ml Output Total 685 ml Balance 1480 ml Constitutional: AAO x 3 Respiratory: respiratory distress, other (poor air entry bilaterally) Cardiovascular: irregularly irregular, S1 and S2 Gastrointestional: soft, audible bowel sounds Extremities: no lower extremity edema bilateral Neurologic/Psychiatric: alert, normal mood/affect, other (moves all limbs equally) Skin: normal color, warm/dry; No rash on exposed areas, No ulcerations on exposed areas Results/Procedures: Labs Laboratory Tests 01/07/21 05:17: White Blood Count 5.8, Red Blood Count 3.53L, Hemoglobin 9.6L, Hematocrit 32L, Mean Corpuscular Volume 92, Mean Corpuscular Hemoglobin 27, Mean Corpuscular Hemoglobin Concent 30L, Red Cell Distribution Width 17.8H, Platelet Count 278, Mean Platelet Volume 9.1, Immature Granulocyte % (Auto) 2, Neutrophils (%) (Auto) 88H, Lymphocytes (%) (Auto) 5L, Monocytes (%) (Auto) 5, Eosinophils (%) (Auto) 0, Basophils (%) (Auto) 0, Neutrophils # (Auto) 5.1, Lymphocytes # (Auto) 0.3L, Monocytes # (Auto) 0.3, Eosinophils # (Auto) 0.0, Basophils # (Auto) 0.0, Immature Granulocyte # (Auto) 0.1, Prothrombin Time 29.1H, INR Comment 2.7H, Sodium Level 139, Potassium Level 3.2L, Chloride Level 98, Carbon Dioxide Level 33H, Anion Gap 8, Blood Urea Nitrogen 25H, Creatinine 0.73, Estimat Glomerular Filtration Rate > 60, BUN/Creatinine Ratio 34, Glucose Level 136H, Calcium Level 9.3, Corrected Calcium 9.9, Magnesium Level 2.3, Total Bilirubin 0.5, Aspartate Amino Transf (AST/SGOT) 23, Alanine Aminotransferase (ALT/SGPT) 19, Alkaline Phosphatase 36L, Total Protein 6.8, Albumin 3.3 01/07/21 07:45: Digoxin Level < 0.30L Microbiology 01/05/21 C. difficile [facility] Antigen & Toxins - Final, Complete 01/03/21 Urine Culture - Final, Complete Citrobacter amalonaticus Enterococcus faecalis 01/03/21 Blood Culture - Preliminary, Resulted No growth A/P: Assessment: Acute Respiratory failure, likely multifactorial d/t acute on chronic exacerbation of COPD, acute on chronic systolic/diastolic CHF Acute on chronic exacerbation of COPD UTI sepsis Acute systolic/diastolic CHF Echo by Dr. Crook on 01-04-21- shows LVEF 55-65%. Reduced systolic function with increased systolic pressure. LA and RA severely dilated. PASP 70-75 mmHg. TR. Anemia Chronic AF - rate controlled Chronic OAC with coumadin - therapeutic INR Hypokalemia - replace IVC filter is noted on CT of the abdomen from 01-03-21 Plan: Continue current medication regimen Replace electrolytes Monitor lab closely Monitor INR closely - adjust warfarin dose as indicated We have reviewed Dr. Crook's notes [facility] ABAD [facility] CCDS January 07, 2021 18:21
[2021-01-07] MEDS: LATANOPROST 0.005% (XALATAN) OPHTH SOLN 2.5 ML OU SCH (20:55)
[2021-01-07] MEDS ORDERED: TROUGH ORDER-PHARMACY XX ONE (21:00)
[2021-01-08] MEDS: methylPREDNISolone 40 MG/ML (Solu-MEDROL) VIAL IV SCH ×2 (00:39→05:45)
[2021-01-08] MEDS: metroNIDAZOLE 500 MG/100 ML IVPB (PRE-MIX) IV SCH (00:39)
[2021-01-08] MEDS: RT-ALBUTEROL/IPRATROPIUM 3 ML (DUONEB) VIAL INH SCH ×2 (02:30→07:20)
[2021-01-08] MEDS: LEVOTHYROXINE 75 MCG (LEVOTHROID) TABLET PO SCH (05:40)
[2021-01-08] MEDS: GABAPENTIN 100 MG (NEURONTIN) CAP PO SCH (05:40)
[2021-01-08 06:12] LABS: BASOPHILS % (AUTO) 0 % (0-10); EOSINOPHILS % (AUTO) 0 % (0-10); HEMATOCRIT 35 % (35-52); HEMOGLOBIN 10.3 g/dL (11.5-16.0); LYMPHOCYTES # (AUTO) 0.3 10^3/uL (1.0-4.0); LYMPHOCYTES % (AUTO) 4 % (12-44); MEAN CORPUSCULAR HEMOGLOBIN 27 pg (25-34); MEAN CORPUSCULAR HGB CONC 30 g/dL (32-36); MEAN CORPUSCULAR VOLUME 92 fL (80-99); MEAN PLATELET VOLUME 9.2 fL (9.0-12.2); MONOCYTES # (AUTO) 0.5 10^3/uL (0.0-1.0); MONOCYTES % (AUTO) 7 % (0-12); NEUTROPHILS # (AUTO) 6.5 10^3/uL (1.8-7.8); NEUTROPHILS % (AUTO) 85 % (42-75); PLATELET COUNT 283 10^3/uL (130-400); WHITE BLOOD COUNT 7.6 10^3/uL (4.3-11.0)
[2021-01-08 06:25] LABS: INR 2.1 (0.8-1.4); PROTHROMBIN TIME PATIENT 23.8 SEC (12.2-14.7)
[2021-01-08 06:27] LABS: ALBUMIN 3.4 GM/DL (3.2-4.5)
[2021-01-08 06:28] LABS: CHLORIDE 101 MMOL/L (98-107); POTASSIUM 3.9 MMOL/L (3.6-5.0); SODIUM 140 MMOL/L (135-145)
[2021-01-08 06:29] LABS: CALCIUM 9.4 MG/DL (8.5-10.1)
[2021-01-08 06:30] LABS: GLUCOSE 138 MG/DL (70-105)
[2021-01-08 06:31] LABS: CARBON DIOXIDE 32 MMOL/L (21-32)
[2021-01-08 06:32] LABS: BILIRUBIN,TOTAL 0.4 MG/DL (0.1-1.0)
[2021-01-08 06:33] LABS: ALKALINE PHOSPHATASE 47 U/L (40-136)
[2021-01-08 06:34] LABS: CREATININE SERUM 0.72 MG/DL (0.60-1.30); GFR ESTIMATED > 60
[2021-01-08 06:35] LABS: BUN/CREATININE RATIO 32
[2021-01-08 06:36] LABS: ALANINE AMINOTRANSFERASE 31 U/L (0-55)
[2021-01-08] MEDS ORDERED: FUROSEMIDE 40 MG/4 ML INJ (LASIX) IVP ONE ×2 (07:00→10:00)
--- NOTE | 2021-01-08 07:05 | Pulmonary Progress Note ---
Subjective Time Seen by a Provider: 07:01 Subjective/Events-last exam pt is currently on Vapotherm. Sepsis Event Evaluation Height, Weight, BMI Height: '" Weight: lbs. oz. kg; 30.37 BMI Method: Focused Exam Time of Focused Exam: 12:45 Exam Exam Vital Signs Date Time Temp Pulse Resp B/P (MAP) Pulse Ox O2 Delivery O2 Flow Rate FiO2 01/08/21 04:34 36.0 56 16 174/73 (106) 90 Vapotherm 15.00 45.00 01/08/21 02:31 90 Vapotherm 15.00 45 01/08/21 00:57 36.4 64 18 156/81 (106) 90 Vapotherm 15.00 45.00 01/07/21 21:00 93 Vapotherm 15.00 45 01/07/21 20:00 36.2 67 18 155/73 (100) 92 Vapotherm 15.00 45.00 01/07/21 18:17 90 Vapotherm 15.00 45 01/07/21 16:00 36.3 64 18 145/80 (101) 94 Vapotherm 15.00 45.00 01/07/21 14:54 94 Vapotherm 15.00 45 01/07/21 12:31 71 01/07/21 12:00 35.7 71 18 172/68 (102) 94 Vapotherm 15.00 50.00 01/07/21 09:58 94 Vapotherm 15.00 55 01/07/21 09:00 94 Vapotherm 15.00 01/07/21 08:00 36.1 65 16 181/87 (118) 91 Vapotherm 15.00 55.00 I & O 01/08/21 06:59 Intake Total 2140 ml Output Total 675 ml Balance 1465 ml Height & Weight Height: '" Weight: lbs. oz. kg; 30.37 BMI Method: General Appearance: No Apparent Distress, WD/WN, Anxious, Chronically ill HEENT: No Moist Mucous Membranes (dry mucus membranes) Neck: Non Tender, Supple, Limited Range of Motion Respiratory: No Accessory Muscle Use, No Respiratory Distress, Decreased Breath Sounds Cardiovascular: Regular Rate, Rhythm Capillary Refill: Less Than 3 Seconds Peripheral Pulses: 2+ Radial Pulses (R), 2+ Radial Pulses (L) Gastrointestinal: distended, guarding, tenderness (diffuse) Extremity: Pedal Edema Neurologic/Psychiatric: Alert, Oriented x3, Disoriented Skin: Damp (Under panniculus) Lymphatic: No Adenopathy Results Lab Laboratory Tests 01/07/21 05:17 01/08/21 05:40 Assessment/Plan Assessment/Plan Acute on chronic respiratory failure -Repeat ABG -Currently on Vapotherm -Repeat BNP -Give Lasix 60mg IV x 1 -Currently on solumedrol 40 IV Q 6 Sepsis with UTI r/o PNA -Continue Abx -[place] cultures Hx of oxygen dependent COPD -Duoneb to Q4 -Oxygen CHF hx -Monitor -Repeat BNP Afib - controlled rate -Monitor BRIANNE MCGEE DO January 08, 2021 07:05
--- NOTE | 2021-01-08 07:06 | Progress Note - Hospitalist ---
Subjective HPI/CC On Admission Date Seen by Provider: January 08, 2021 Focused Exam Time of Focused Exam: 12:45 Objective Exam Vital Signs Vital Signs Date Time Temp Pulse Resp B/P (MAP) Pulse Ox O2 Delivery O2 Flow Rate FiO2 01/08/21 07:24 90 Vapotherm 15.00 45 01/08/21 04:34 36.0 56 16 174/73 (106) Capillary Refill : Less Than 3 Seconds Results/Procedures Lab Laboratory Tests 01/08/21 05:40 Patient resulted labs reviewed. Assessment/Plan Assessment and Plan Assess & Plan/Chief Complaint Assessment: Acute respiratory failure AF long standing OAC Dementia Plan: Vapotherm PT OT DC Cath LEBRON MENA DO January 08, 2021 07:05
[2021-01-08] MEDS ORDERED: KCL 20 MEQ TAB (K-DUR) PO ONE (08:00)
--- NOTE | 2021-01-08 09:04 | Diagnostic Imaging Report ---
INDICATION: Shortness of breath. TECHNIQUE: Single view chest 8:51 AM. CORRELATION STUDY: 01/03/2021 FINDINGS: Rather marked severity cardiac enlargement appears increased. Vasculature within normal limits. Probable small pleural effusions. IMPRESSION: 1. Marked cardiac enlargement may be slightly increased in size. Vasculature, however is within normal limits. 2. Likely combination of effusion along with minimal atelectasis or infiltrate both lung bases. Lung erickson, however overall improved in their aeration since prior. Dictated by: Dictated on workstation # [id number]
[2021-01-08] MEDS: DIGOXIN 0.125 MG (LANOXIN) TAB PO SCH (09:51)
[2021-01-08] MEDS: PANTOPRAZOLE 40 MG (PROTONIX) TAB PO SCH (09:52)
[2021-01-08] MEDS: SIMvastatin 20 MG (ZOCOR) TAB PO SCH (09:52)
[2021-01-08] MEDS: VANCOMYCIN 1 GM/NS 250 ML IVPB IV SCH ×2 (10:06)
--- NOTE | 2021-01-08 10:23 | Discharge Summary ---
Discharge Summary Hospital Course Was the Problem List Reviewed?: Yes Problems/Dx: (1) Acute on chronic respiratory failure with hypoxia and hypercapnia Status: Acute (2) Acute CHF Status: Acute Qualifiers: Qualified Codes: I50.9 - Heart failure, unspecified (3) Atrial fibrillation Status: Chronic Qualifiers: Qualified Codes: I48.11 - Longstanding persistent atrial fibrillation (4) Sepsis Status: Acute Qualifiers: Qualified Codes: A41.9 - Sepsis, unspecified organism; R65.20 - Severe sepsis without septic shock (5) UTI (urinary tract infection) Status: Acute Qualifiers: Qualified Codes: N30.01 - Acute cystitis with hematuria Hospital Course Date of Admission: January 03, 2021 at 12:35 Admission Diagnosis : Family Physician/Provider: Jose Araiza MD Date of Discharge: 01/08/21 Discharge Diagnosis: Sepsis, UTI, CHF, AF Hospital Course: Hospital Course: Pt had a complex lengthy hospital course which started as acute respiratory failure with hypercapnea and hypoxia requiring BiPAP and vapotherm. UTI diagnosed and antibiotics initiated. Holding Coumadin due to super therapeutic level. At this current time she is ready for swingbed status for PT and OT. Her catheter was DC and her bowels are moving. Her INR is 2.1, will restart Coumadin. Labs and Pending Lab Test: Laboratory Tests 01/07/21 21:00: Vancomycin Level Trough 15.8 01/08/21 05:40: White Blood Count 7.6, Red Blood Count 3.79L, Hemoglobin 10.3L, Hematocrit 35, Mean Corpuscular Volume 92, Mean Corpuscular Hemoglobin 27, Mean Corpuscular Hemoglobin Concent 30L, Red Cell Distribution Width 17.6H, Platelet Count 283, Mean Platelet Volume 9.2, Immature Granulocyte % (Auto) 4, Neutrophils (%) (Auto) 85H, Lymphocytes (%) (Auto) 4L, Monocytes (%) (Auto) 7, Eosinophils (%) (Auto) 0, Basophils (%) (Auto) 0, Neutrophils # (Auto) 6.5, Lymphocytes # (Auto) 0.3L, Monocytes # (Auto) 0.5, Eosinophils # (Auto) 0.0, Basophils # (Auto) 0.0, Immature Granulocyte # (Auto) 0.3H, Prothrombin Time 23.8H, INR Comment 2.1H, Sodium Level 140, Potassium Level 3.9, Chloride Level 101, Carbon Dioxide Level 32, Anion Gap 7, Blood Urea Nitrogen 23H, Creatinine 0.72, Estimat Glomerular Filtration Rate > 60, BUN/Creatinine Ratio 32, Glucose Level 138H, Calcium Level 9.4, Corrected Calcium 9.9, Total Bilirubin 0.4, Aspartate Amino Transf (AST/SGOT) 32, Alanine Aminotransferase (ALT/SGPT) 31, Alkaline Phosphatase 47, B-Type Natriuretic Peptide 307.9H, Total Protein 7.0, Albumin 3.4 Microbiology 01/05/21 C. difficile [facility] Antigen & Toxins - Final, Complete 01/03/21 Urine Culture - Final, Complete Citrobacter amalonaticus Enterococcus faecalis 01/03/21 Blood Culture - Preliminary, Resulted No growth Home Meds Active Reported Salagen (Pilocarpine) 5 Mg Tab 5 Mg PO BID Oxybutynin Chloride 5 Mg Tablet 5 Mg PO Q8H PRN Potassium Chloride 10 Meq Capsule.er 10 Meq PO DAILY PRN TAKES A SECOND DOSE OF POTASSIUM ONLY WHEN AN ADDITIONAL FUROSEMIDE 40MG IS GIVEN Furosemide 40 Mg Tablet 40 Mg PO DAILY Furosemide 20 Mg Tablet 20 Mg PO 1300 Gabapentin 100 Mg Capsule 100 Mg PO 0630,1400,2000 Pyridium (Phenazopyridine HCl) 200 Mg Tablet 1 Tab PO TIDWM PRN Warfarin Sodium 2 Mg Tablet 2 Mg PO 1700 [place]le Tablet (Mth/Me Blue/Sod Phos/Phen/Hyos) 1 Each Tablet 1 Ea PO DAILY Xalatan (Latanoprost) 2.5 Ml Drops 1 Drops OU HS Tylenol Extra Strength (Acetaminophen) 500 Mg Tablet 1,000 Mg PO 1200,2000 Docusate Sodium 100 Mg Capsule 100 Mg PO Q48H Hyoscyamine Sulfate 0.125 Mg Tab.subl 0.125 Mg SL Q4H PRN Carvedilol 6.25 Mg Tablet 6.25 Mg PO BID HOLD IF SBP<110 OR HR<60 Pantoprazole Sodium 40 Mg Tablet.dr 40 Mg PO DAILY Tylenol Extra Strength (Acetaminophen) 500 Mg Tablet 1,000 Mg PO Q6H PRN Levothyroxine Sodium 75 Mcg Tablet 75 Mcg PO DAILY Furosemide 40 Mg Tablet 40 Mg PO DAILY PRN GIVE WITH POTASSIUM Prednisone 2.5 Mg Tablet 2.5 Mg PO DAILY Potassium Chloride 10 Meq Capsule.er 10 Meq PO DAILY Melatonin 5 Mg Tablet 2.5 Mg PO HS TAKES OF A 5MG TAB Digoxin 125 Mcg Tablet 125 Mcg PO DAILY NOTIFY NURSE PULSE <60 Vitamin C (Ascorbic Acid) 1,000 Mg Tablet 1,000 Mg PO 1200 Vitamin D3 (Cholecalciferol (Vitamin D3)) 125 Mcg Tablet 125 Mcg PO 1200 Calcium 600 + Vit D 400 Softgl (Calcium Carbonate/Vitamin D3) 1 Each Capsule 1 Each PO 1200 Magnesium 250 Mg Tablet 250 Mg PO 1200 Nystatin 15 Gm Cream..g. 1 Applic TP BID PRN APPLY TO GROIN Albuterol Sulfate 2.5 Mg/0.5 Ml Vial.neb 2.5 Mg INH Q4H Preparation H Cream (Phenyleph/Pramoxin/Glycr/W.pet) 26 Gm Cream..g. 1 Applic RC Q4H PRN Xeljanz Xr (Tofacitinib Citrate) 11 Mg Tab.er.24h 11 Mg PO DAILY Salagen (Pilocarpine) 5 Mg Tab 5 Mg PO BID PRN Dulcolax (Bisacodyl) 10 Mg Supp.rect 10 Mg RC DAILY PRN Proctosol-Hc (Hydrocortisone) 28.35 Gm Cream.appl 1 Applic RC UD PRN Miralax (Polyethylene Glycol 3350) 17 Gm Powd.pack 17 Gm PO DAILY PRN Simvastatin 20 Mg Tablet 20 Mg PO DAILY Sertraline HCl 25 Mg Tablet 25 Mg PO DAILY Assessment/Pt Instructions SB Discharge Planning: <30 minutes discharge planning Discharge Instructions Discharge Diet: No Restrictions Activity as Tolerated: Yes Discharge Physical Examination Vital Signs Vital Signs Date Time Temp Pulse Resp B/P (MAP) Pulse Ox O2 Delivery O2 Flow Rate FiO2 01/08/21 07:24 90 Vapotherm 15.00 45 01/08/21 04:34 36.0 56 16 174/73 (106) General Appearance: No Apparent Distress, WD/WN, Chronically ill Allergies: Coded Allergies: Sulfa (Sulfonamide Antibiotics) (Verified Allergy, Unknown, 04/30/20) Discharge Summary Date of Admission January 03, 2021 at 12:35 Date of Discharge Discharge Date: January 08, 2021 Discharge Diagnosis Assessment: Acute respiratory failure AF long standing OAC Dementia Plan: Vapotherm PT OT DC LEBRON Marie DO January 08, 2021 10:23
[2021-01-08] MEDS ORDERED: AUGMENTIN 500 MG TAB (AMOXICILLIN/CLAVULANATE) PO SCH (11:00)
[2021-01-08] MEDS ORDERED: ACETAMINOPHEN 500 MG TAB (TYLENOL) ONE (11:01)
[2021-01-08] MEDS ORDERED: methylPREDNISolone 40 MG/ML (Solu-MEDROL) VIAL ONE (11:02)
--- NOTE | 2021-01-08 11:19 | Progress Note - Cardiology ---
Cardiology SOAP Progress Note Subjective: Sitting up in recliner at the bedside States she feels tired and weak No c/o CP Objective: I&O/Vital Signs 01/08/21 01/08/21 01/08/21 01/08/21 00:57 02:31 04:34 07:24 Temp 36.4 36.0 Pulse 64 56 Resp 18 16 B/P (MAP) 156/81 (106) 174/73 (106) Pulse Ox 90 90 90 90 O2 Delivery Vapotherm Vapotherm Vapotherm Vapotherm O2 Flow Rate 15.00 15.00 15.00 15.00 45.00 45.00 FiO2 45 45 01/08/21 00:00 Intake Total 1320 ml Output Total 675 ml Balance 645 ml Constitutional: AAO x 3 Respiratory: respiratory distress, other (poor air entry bilaterally) Cardiovascular: irregularly irregular, S1 and S2 Gastrointestional: soft, audible bowel sounds Extremities: no lower extremity edema bilateral Neurologic/Psychiatric: alert, normal mood/affect, other (moves all limbs equally) Skin: normal color, warm/dry; No rash on exposed areas, No ulcerations on exposed areas Results/Procedures: Labs Laboratory Tests 01/07/21 21:00: Vancomycin Level Trough 15.8 01/08/21 05:40: White Blood Count 7.6, Red Blood Count 3.79L, Hemoglobin 10.3L, Hematocrit 35, Mean Corpuscular Volume 92, Mean Corpuscular Hemoglobin 27, Mean Corpuscular Hemoglobin Concent 30L, Red Cell Distribution Width 17.6H, Platelet Count 283, Mean Platelet Volume 9.2, Immature Granulocyte % (Auto) 4, Neutrophils (%) (Auto) 85H, Lymphocytes (%) (Auto) 4L, Monocytes (%) (Auto) 7, Eosinophils (%) (Auto) 0, Basophils (%) (Auto) 0, Neutrophils # (Auto) 6.5, Lymphocytes # (Auto) 0.3L, Monocytes # (Auto) 0.5, Eosinophils # (Auto) 0.0, Basophils # (Auto) 0.0, Immature Granulocyte # (Auto) 0.3H, Prothrombin Time 23.8H, INR Comment 2.1H, Sodium Level 140, Potassium Level 3.9, Chloride Level 101, Carbon Dioxide Level 32, Anion Gap 7, Blood Urea Nitrogen 23H, Creatinine 0.72, Estimat Glomerular Filtration Rate > 60, BUN/Creatinine Ratio 32, Glucose Level 138H, Calcium Level 9.4, Corrected Calcium 9.9, Total Bilirubin 0.4, Aspartate Amino Transf (AST/SGOT) 32, Alanine Aminotransferase (ALT/SGPT) 31, Alkaline Phosphatase 47, B-Type Natriuretic Peptide 307.9H, Total Protein 7.0, Albumin 3.4 Microbiology 01/05/21 C. difficile [facility] Antigen & Toxins - Final, Complete 01/03/21 Urine Culture - Final, Complete Citrobacter amalonaticus Enterococcus faecalis 01/03/21 Blood Culture - Preliminary, Resulted No growth Laboratory Tests 01/07/21 05:17 01/08/21 05:40 Procedures NAME: AUNDREA REEVES [facility] REC#: [id number] PT STATUS: ADM IN : 1935 PHYSICIAN: BRIANNE MCGEE DO ADMIT DATE: 01/03/21 Draft Date of Exam:01/08/21 CHEST 1 VIEW, AP/PA ONLY INDICATION: Shortness of breath. TECHNIQUE: Single view chest 8:51 AM. CORRELATION STUDY: 01/03/2021 FINDINGS: Rather marked severity cardiac enlargement appears increased. Vasculature within normal limits. Probable small pleural effusions. IMPRESSION: 1. Marked cardiac enlargement may be slightly increased in size. Vasculature, however is within normal limits. 2. Likely combination of effusion along with minimal atelectasis or infiltrate both lung bases. Lung erickson, however overall improved in their aeration since prior. Dictated on workstation # [id number] Dict: 01/08/21900 Trans: 01/08/21 09 [id number] Interpreted by: JENNIFER MCCLOUD DO Electronically signed by: A/P: Assessment: Acute Respiratory failure, likely multifactorial d/t acute on chronic exacerbation of COPD, acute on chronic systolic/diastolic CHF Acute on chronic exacerbation of COPD UTI sepsis Acute systolic/diastolic CHF Echo by Dr. Crook on 01-04-21- shows LVEF 55-65%. Reduced systolic function with increased systolic pressure. LA and RA severely dilated. PASP 70-75 mmHg. TR. Anemia Chronic AF - rate controlled Chronic OAC with coumadin - therapeutic INR Hypokalemia - replace IVC filter is noted on CT of the abdomen from 01-03-21 Plan: Continue current medication regimen Replace electrolytes Monitor lab closely Monitor INR closely - adjust warfarin dose as indicated MILA CANNON LAMBSKIN TRIMMER January 08, 2021 11:19
== END 2021-01-08 10:31 | disposition swing bed (61) | DRG 871 ==
LOC: EDUNIT# 10:19 → ER FS 10:20 → ICU 12:35 → ER FS 14:50 → 4TH 01-04 16:00
PROVIDERS: ADMIT Family Medicine; ATTEND Internal Medicine
PROC: 5A09357 Assistance with Respiratory Ventilation, Less than 24 Consecutive Hours, Continuous Positive Airway Pressure (ICD-10-PCS; principal; 2021-01-03)
DX: A41.81 Sepsis due to Enterococcus (principal); J96.21 Acute and chronic respiratory failure with hypoxia; J96.22 Acute and chronic respiratory failure with hypercapnia; I50.43 Acute on chronic combined systolic (congestive) and diastolic (congestive) heart failure; I48.19 Other persistent atrial fibrillation; J44.1 Chronic obstructive pulmonary disease with (acute) exacerbation; N30.91 Cystitis, unspecified with hematuria; Z79.01 Long term (current) use of anticoagulants; F03.90 Unspecified dementia, unspecified severity, without behavioral disturbance, psychotic disturbance, mood disturbance, and anxiety; I11.0 Hypertensive heart disease with heart failure; E87.6 Hypokalemia; M06.9 Rheumatoid arthritis, unspecified; E03.9 Hypothyroidism, unspecified; I27.20 Pulmonary hypertension, unspecified; I25.10 Atherosclerotic heart disease of native coronary artery without angina pectoris; D64.9 Anemia, unspecified; F41.9 Anxiety disorder, unspecified; R32 Unspecified urinary incontinence; B37.2 Candidiasis of skin and nail; I07.1 Rheumatic tricuspid insufficiency; Z99.81 Dependence on supplemental oxygen; Z86.718 Personal history of other venous thrombosis and embolism; Z88.2 Allergy status to sulfonamides
CPT/HCPCS: 36415; 36600; 51702; 71045; 71275; 74177; 80053; 80162; 80202; 81000; 82805; 83605; 83690; 83735; 83880; 84145; 84484; 85007; 85025; 85027; 85379; 85610; 85730; 86141; 87040; 87088; 87186; 87324; 87449; 93005; 93306; 94640; 94660; 94760; 96374; 99291

== ENCOUNTER 2021-01-08 10:58 | Inpatient (IN) | payer MEDICARE ==
[~2021-01-08] VITALS: Ht 162.5 cm; Wt 80.2 kg
[~2021-01-08 10:58] MED LIST changes: +ACET-2267 PO; +ACETAMINOPHEN 650 MG SUPP (TYLENOL) PR PRN; +ALB0.5V INH; +ASCO100024 PO; -BAMLANIVIMAB 700 MG in NS 200 ML IV ONE; +BISA10SU58 RC; +BISACODYL 10 MG SUPP (DULCOLAX) RC PRN; +CALC1CAP21 PO; +CARV6.252 PO; +CATHETER FLUSH 10 ML SYR IV PRN; +CHOL500044 PO; +DIGO125T3 PO; +DOCU100C37 PO; -EPINEPHrine INJECTION 1 MG/ML AMP IM PRN; +FURO20TA4 PO; +FURO40TA4 PO; +GABA-486 PO; +HYDR28.341 RC; +HYOS-19 SL; +LATA2.5D19 OU; +LEVO75TA6 PO; +MAGN250T2 PO; +MELA5TAB14 PO; +METH1TAB41 PO; +MICONAZOLE 2% POWDER (DESENEX AF) 90 GM TOP PRN; +NF-PILO5T PO; +NYST15CR TP; +OXYB5TAB13 PO; +PANT40TA52 PO; +PHEN-640 PO; +PHEN26CR2 RC; +POLY17PO6 PO; +POTA10CA43 PO; +PRED2.5T PO; +SERT-412 PO; +SIMV20TA26 PO; +TOFA11TA PO; +WARF-47 PO; -diphenhydrAMINE 50 MG/ML INJ (BENADRYL) IV PRN; +polyethylene glycoL POWDER 17 GM (MIRALAX) PACK PO PRN
[2021-01-08] MEDS: DOCUSATE SODIUM 100 MG (COLACE) CAP PO SCH (11:05)
--- NOTE | 2021-01-08 11:29 | Physical Therapy Evaluation ---
PT Evaluation-General Medical Diagnosis Admission Date January 08, 2021 at 10:58 Medical Diagnosis: cystitis with hematuria/sepsis/hypoxia Onset Date: January 03, 2021 Therapy Diagnosis Therapy Diagnosis: debility/weakness Precautions Precautions/Isolations: Standard Precautions Referral Physician: Carlos Reason for Referral: Evaluation/Treatment Medical History Pertinent Medical History: Atrial Fib, Heart Failure, HTN, Rheumatoid Arthritis Current History SWB secondary to SOA/currently on Vapotherm Reviewed History: Yes Social History Home: Assisted Living Prior Prior Level of Function SCALE: Activities may be completed with or without assistive devices. 3-Sciwtsfpjy-sxjoxir completes the activity by him/herself with no assistance from a helper. 5-Set-up or Clean-up Assistance-helper sets up or cleans up; patient completes activity. [place] assists only prior to or following the activity. 4-Supervision or Touching Assistance-helper provides verbal cues and/or touching/steadying and/or contact guard assistance as patient completes activity. Assistance may be provided throughout the activity or intermittently. 3-Partial/Moderate Assistance-helper does LESS THAN HALF the effort. [place] lifts, holds or supports trunk or limbs, but provides less than half the effort. 2-Substantial/Maximal Assistance-helper does MORE THAN HALF the effort. [place] lifts or holds trunk or limbs and provides more than half the effort. 9-Dfihlvqvx-uuxrmn does ALL the effort. Patient does none of the effort to complete the activity. Or, the assistance of 2 or more helpers is required for the patient to complete the activity. If activity was not attempted, code reason: 7-Patient Refused. 9-Not Applicable-not attempted and the patient did not perform the activity before the current illness, exacerbation or injury. 10-Not Attempted due to Environmental Limitations-(lack of equipment, weather restraints, etc.). 88-Not Attempted due to Medical Conditions or Safety Concerns. Bed Mobility: 6 Transfers (B,C,W/C): 6 Gait: 6 Stairs: 9 Wheelchair Mobility: 6 Indoor Mobility (Ambulation): Independent Prior Devices Use: Manual wheelchair, Walker Manual wheelchair, Walker w/c for long distances and patient uses this going backward PT Evaluation-Current Subjective Patient agrees to PT. Pt/Family Goals return to CUSTODIAL Objective Patient Orientation: Normal For Age Attachments: Oxygen (vapotherm), IV ROM/Strength ROM Lower Extremities bilateral LE WFL Strength Lower Extremities 4-/5 grossly bilateral LE Integumentary/Posture Integumentary refer to nursing notes Bowel Incontinence: No Bladder Incontinence: Yes Posture scoliosis/kyphosis Neuromuscular (Tone, Coordination, Reflexes) grossly intact Sensory Vision: Wears Glasses Hearing: Impaired Transfers Roll Left & Right (QC): 4 Sit to Lying (QC): 4 Lying to Sitting/Side of Bed(Q: 4 Sit to Stand (QC): 4 Chair/Hli-wn-Fuvdt Xfer(QC): 4 Toilet Transfer (QC): 4 Car Transfer (QC): 4 (simulated) SBA with all mobility Gait Does the Patient Walk?: Yes Mode of Locomotion: Both Anticipated Mode of Locomotion: Both Walk 10 feet (QC): 4 (SBA) Walk 50 ft with 2 Turns(QC): 4 (SBA) Walk 150 ft (QC): 9 Walking 10ft/uneven surface-QC: 88 Distance: 50' Gait Assistive Device: FWW Comments/Gait Description slow, shuffle gait sequence Wheelchair Training Does the Pt Use a Wheelchair?: Yes Wheel 50 ft with 2 turns (QC): 88 Wheel 150 ft (QC): 88 Type of Wheelchair: Manual limited by use of Vapotherm Stairs 1 Step (curb) (QC): 9 4 Steps (QC): 9 12 Steps (QC): 9 Balance Sitting Static: Normal Sitting Dynamic: Normal Standing Static: Fair Standing Dynamic: Fair Picking up an Object (QC): 4 (seated position) Treatment Bilateral LE exercises 15 reps x 2 sets AP, LAQ, hip flexion (SAO2 with activity decreased to 83% on vapotherm recovery over 5 min to 91%) RN notified Assessment/Needs 85 y.o. female, will benefit from skilled PT to address functional strength and mobility to improve current LOF to safely return to [place] at maximum LOF. Patient currently limited due to pulmonary status. Rehab Potential: Guarded PT Senior Care Goals Title Inspector Goals PT Title Inspector Goals Time Frame: Feb 02, 2021 Roll Left & Right (QC): 6 Sit to Lying (QC): 6 Lying-Sitting on Side/Bed(QC): 6 Sit to Stand (QC): 6 Chair/Ebd-zl-Xsubk Xfer(QC): 6 Toilet Transfer (QC): 6 Car Transfer (QC): 6 (simulated) Does the Patient Walk: Yes Walk 10 feet (QC): 6 Walk 50ft with 2 Turns (QC): 6 Walk 150 ft (QC): 6 Walking 10ft on Uneven Surface: 6 1 Step (curb) (QC): 9 4 Steps (QC): 9 12 Steps (QC): 9 Picking up an Object (QC): 6 (seated) Wheel 50 feet with 2 turns (QC: 88 Type: Manual Wheel 150 feet: 88 Type: Manual PT Plan Problem List Problem List: Activity Tolerance, Functional Strength, Safety, Balance, Gait, Transfer, Bed Mobility Treatment/Plan Treatment Plan: Continue Plan of Care Treatment Plan: Bed Mobility, Education, Functional Activity [place], Functional Strength, Gait, Safety, Therapeutic Exercise, Transfers Treatment Duration: Feb 02, 2021 Frequency: 6 times per week Estimated Hrs Per Day: .25 hour per day Patient and/or Family Agrees t: Yes Discharge Recommendations Therapy Discharge Recommendati: Post Acute PT (home health) Time/GCodes Time In: 1045 Time Out: 1108 Total Billed Treatment Time: 23 Total Billed Treatment 1 visit EVModC 8 min EX 15 min EFRAIN CHERY PT January 08, 2021 11:29
[2021-01-08] MEDS ORDERED: RT-ALBUTEROL/IPRATROPIUM 3 ML (DUONEB) VIAL INH PRN (11:30)
[2021-01-08] MEDS: methylPREDNISolone 40 MG/ML (Solu-MEDROL) VIAL IV SCH ×2 (12:05→18:33)
[2021-01-08] MEDS: ACETAMINOPHEN 500 MG TAB (TYLENOL) PO PRN ×2 (12:05→18:32)
[2021-01-08] MEDS: AUGMENTIN 500 MG TAB (AMOXICILLIN/CLAVULANATE) PO SCH ×2 (12:09→21:29)
[2021-01-08] MEDS: RT-ALBUTEROL/IPRATROPIUM 3 ML (DUONEB) VIAL INH SCH ×2 (13:51→19:26)
[2021-01-08] MEDS: GABAPENTIN 100 MG (NEURONTIN) CAP PO SCH ×2 (14:19→21:29)
--- NOTE | 2021-01-08 15:04 | Occupational Therapy Eval ---
OT Evaluation-General/PLF Medical Diagnosis Admission Date January 08, 2021 at 10:58 Medical Diagnosis: cystitis with hematuria/sepsis/hypoxia Onset Date: January 03, 2021 Therapy Diagnosis Therapy Diagnosis: Weakness, Decreased ADL skills Precautions Precautions/Isolations: Standard Precautions Weight Bear Status Weight Bearing Restriction: Weight Bearing/Tolerated Referral Physician: Carlos Faustin Reason: Activity Tolerance, Self Care, Evaluation/Treatment, Strengthening/ROM Medical History Pertinent Medical History: Atrial Fib, Heart Failure, HTN, Rheumatoid Arthritis Current History Pt. transferred to this facility after being SOA approximately 2 weeks. Pt. from Assisted Living. Reviewed History: Yes Social History Home: Assisted Living Current Living Status: Entry Into Home: Level Entry ADL-Prior Level of Function SCALE: Activities may be completed with or without assistive devices. 9-Ijvyvpshbt-obnpqix completes the activity by him/herself with no assistance from a helper. 5-Set-up or Clean-up Assistance-helper sets up or cleans up; patient completes activity. [place] assists only prior to or following the activity. 4-Supervision or Touching Assistance-helper provides verbal cues and/or touching/steadying and/or contact guard assistance as patient completes activity. Assistance may be provided throughout the activity or intermittently. 3-Partial/Moderate Assistance-helper does LESS THAN HALF the effort. [place] lifts, holds or supports trunk or limbs, but provides less than half the effort. 2-Substantial/Maximal Assistance-helper does MORE THAN HALF the effort. [place] lifts or holds trunk or limbs and provides more than half the effort. 0-Tdrmunbvv-fwbnvo does ALL the effort. Patient does none of the effort to complete the activity. Or, the assistance of 2 or more helpers is required for the patient to complete the activity. If activity was not attempted, code reason: 7-Patient Refused. 9-Not Applicable-not attempted and the patient did not perform the activity bef ore the current illness, exacerbation or injury. 10-Not Attempted due to Environmental Limitations-(lack of equipment, weather r estraints, etc.). 88-Not Attempted due to Medical Conditions or Safety Concerns. ADL PLOF Comments Pt. states that she can do most things for herself at the assisted living, but does occasionally need assistance. Self Care: Needed Some Help Functional Cognition: Unknown DME/Equipment: Bath Chair, Shower OT Current Status Subjective No pain reported. Appearance Pt. up in chair. Alert. Pt. on vapotherm. Reports being tired. Agrees to work with OT. Mental Status/Objective Patient Orientation: Person, Place Attachments: IV, Oxygen Current Upper Extremity ROM WFL ADL-Treatment Eating (QC): 5 Oral Hygiene (QC): 7 Shower/Bathe Self (QC): 3 (Min assist to cleanse rear michael area more thoroughly.) Upper Body Dressing (QC): 4 (SBA due to vapotherm tubing.) Lower Body Dressing (QC): 3 (Min assist.) On/Off Footwear (QC): 4 (Slippers) Toileting Hygiene (QC): 3 (Min assist) Pt. able to stand from chair at walker with SBA and transfer to BSC with SBA. Transferred back to chair with SBA after toileting. All needs met and lunch tray arrived. Education OT Patient Education: Correct positioning, Modified ADL techniques, Progress toward Goal/Update tx plan, Purpose of tx/functional activities, Reviewed precautions, Rehab process, Transfer techniques Teaching Recipient: Patient Teaching Methods: Demonstration, Discussion Response to Teaching: Verbalize Understanding, Return Demonstration OT Short Term Goals Short Term Goals Time Frame: January 15, 2021 Eatin Oral hygiene: 5 Toileting hygiene: 4 Shower/bathe self: 4 Upper body dressin Lower body dressin Putting on/taking off footwear: 5 OT Director Educational Radio Goals Group Home Goals Time Frame: Jan 22, 2021 Eating (QC): 6 Oral Hygiene (QC): 6 Toileting Hygiene (QC): 6 Shower/Bathe Self (QC): 4 Upper Body Dressing (QC): 5 Lower Body Dressing (QC): 4 On/Off Footwear (QC): 5 Additional Goals: 1-Demonstrate ADL Tasks, 2-Verbalize Understanding, 3- ImproveStrength/Violette 1=Demonstrate adherence to instructed precautions during ADL tasks. 2=Patient will verbalize/demonstrate understanding of assistive devices/modifications for ADL. 3=Patient will improve strength/tolerance for activity to enable patient to perform ADL's. OT Education/Plan Problem List/Assessment Assessment: Decreased Activ Tolerance, Impaired I ADL's, Impaired Self-Care Skills Discharge Recommendations Plan/Recommendations: Continue POC Therapy Discharge Recommendati: Post Acute OT Treatment Plan/Plan of Care Treatment,Training & Education: Yes Patient would benefit from OT for education, treatment and training to promote independence in ADL's, mobility, safety and/or upper extremity function for ADL's. Plan of Care: ADL Retraining, Functional Mobility, UE Funct Exercise/Act Treatment Duration: Jan 22, 2021 Frequency: 5 times per week Estimated Hrs Per Day: .25 hour per day Agreement: Yes Rehab Potential: Good Time/GCodes Start Time: 12:40 Stop Time: 13:10 Total Time Billed (hr/min): 30 Billed Treatment Time 1, EVM x 10minutes, ADL x 20minutes IVANIA LLANOS OT January 08, 2021 15:04
[2021-01-08] MEDS ORDERED: warFARin 1 MG (COUMADIN) TAB PO SCH ×2 (17:00→18:00)
[2021-01-08 18:11] VITALS: BP 176/90
[2021-01-09] MEDS: LATANOPROST 0.005% (XALATAN) OPHTH SOLN 2.5 ML OU SCH ×2 (00:17→20:46)
[2021-01-09] MEDS: methylPREDNISolone 40 MG/ML (Solu-MEDROL) VIAL IV SCH ×5 (00:30→23:36)
[2021-01-09] MEDS: RT-ALBUTEROL/IPRATROPIUM 3 ML (DUONEB) VIAL INH SCH ×4 (03:10→21:22)
[2021-01-09] MEDS: GABAPENTIN 100 MG (NEURONTIN) CAP PO SCH ×3 (05:46→20:45)
[2021-01-09] MEDS: LEVOTHYROXINE 75 MCG (LEVOTHROID) TABLET PO SCH (05:48)
[2021-01-09 05:50] VITALS: BP 165/77
[2021-01-09 05:52] LABS: BASOPHILS % (AUTO) 0 % (0-10); EOSINOPHILS % (AUTO) 0 % (0-10); HEMATOCRIT 34 % (35-52); HEMOGLOBIN 10.1 g/dL (11.5-16.0); LYMPHOCYTES # (AUTO) 0.4 10^3/uL (1.0-4.0); LYMPHOCYTES % (AUTO) 5 % (12-44); MEAN CORPUSCULAR HEMOGLOBIN 27 pg (25-34); MEAN CORPUSCULAR HGB CONC 30 g/dL (32-36); MEAN CORPUSCULAR VOLUME 91 fL (80-99); MEAN PLATELET VOLUME 9.1 fL (9.0-12.2); MONOCYTES # (AUTO) 0.7 10^3/uL (0.0-1.0); MONOCYTES % (AUTO) 8 % (0-12); NEUTROPHILS % (AUTO) 80 % (42-75); PLATELET COUNT 287 10^3/uL (130-400); WHITE BLOOD COUNT 8.8 10^3/uL (4.3-11.0)
[2021-01-09 06:00] LABS: ALBUMIN 3.2 GM/DL (3.2-4.5)
[2021-01-09 06:01] LABS: CHLORIDE 100 MMOL/L (98-107); POTASSIUM 3.7 MMOL/L (3.6-5.0); SODIUM 140 MMOL/L (135-145)
[2021-01-09 06:02] LABS: CALCIUM 8.8 MG/DL (8.5-10.1); PROTHROMBIN TIME PATIENT 23.1 SEC (12.2-14.7)
[2021-01-09 06:03] LABS: GLUCOSE 160 MG/DL (70-105); TOTAL PROTEIN 6.5 GM/DL (6.4-8.2)
[2021-01-09 06:04] LABS: CARBON DIOXIDE 31 MMOL/L (21-32)
[2021-01-09 06:05] LABS: BILIRUBIN,TOTAL 0.4 MG/DL (0.1-1.0)
[2021-01-09 06:06] LABS: ALKALINE PHOSPHATASE 55 U/L (40-136)
[2021-01-09 06:07] LABS: CREATININE SERUM 0.73 MG/DL (0.60-1.30); GFR ESTIMATED > 60
[2021-01-09 06:08] LABS: BUN/CREATININE RATIO 33
[2021-01-09 06:09] LABS: ALANINE AMINOTRANSFERASE 29 U/L (0-55)
[2021-01-09] MEDS: AUGMENTIN 500 MG TAB (AMOXICILLIN/CLAVULANATE) PO SCH ×2 (08:27→20:55)
[2021-01-09] MEDS: DIGOXIN 0.125 MG (LANOXIN) TAB PO SCH (08:27)
[2021-01-09] MEDS: SIMvastatin 20 MG (ZOCOR) TAB PO SCH (08:28)
[2021-01-09] MEDS: PANTOPRAZOLE 40 MG (PROTONIX) TAB PO SCH (08:28)
--- NOTE | 2021-01-09 08:52 | Physical Therapy Daily Note ---
PT Daily Note-Current Subjective Patient in recliner pre tx, agrees to PT, has no complaints of pain. Appearance Patient in recliner post tx with nurse call, phone, tray, all needs met, legs elevated. Mental Status Patient Orientation: Person, Confused Attachments: Oxygen Transfers SCALE: Activities may be completed with or without assistive devices. 0-Pynwhlbzsg-dzgfido completes the activity by him/herself with no assistance from a helper. 5-Set-up or Clean-up Assistance-helper sets up or cleans up; patient completes activity. [place] assists only prior to or following the activity. 4-Supervision or Touching Assistance-helper provides verbal cues and/or touching/steadying and/or contact guard assistance as patient completes activity. Assistance may be provided throughout the activity or intermittently. 3-Partial/Moderate Assistance-helper does LESS THAN HALF the effort. [place] lifts, holds or supports trunk or limbs, but provides less than half the effort. 2-Substantial/Maximal Assistance-helper does MORE THAN HALF the effort. [place] lifts or holds trunk or limbs and provides more than half the effort. 1-Tfrisqntr-feadhv does ALL the effort. Patient does none of the effort to complete the activity. Or, the assistance of 2 or more helpers is required for the patient to complete the activity. If activity was not attempted, code reason: 7-Patient Refused. 9-Not Applicable-not attempted and the patient did not perform the activity before the current illness, exacerbation or injury. 10-Not Attempted due to Environmental Limitations-(lack of equipment, weather restraints, etc.). 88-Not Attempted due to Medical Conditions or Safety Concerns. Sit to Stand (QC): 4 Chair/Mcx-qe-Dwbnu Xfer(QC): 4 CGA Gait Training Distance: 40' Walk 10 feet (QC): 4 Gait Assistive Device: FWW CGA, very slow ambulation, slumped posture Exercises Seated Therapy Exercises: Ankle pumps, Long arc quads Seated Reps: 20 Treatments transfers, ambulation, LE exercise Assessment Current Status: Fair Progress improved functional mobility PT Musical Instrument Maker Goals Assisted Goals PT Musical Instrument Maker Goals Time Frame: Feb 02, 2021 Roll Left & Right (QC): 6 Sit to Lying (QC): 6 Lying-Sitting on Side/Bed(QC): 6 Sit to Stand (QC): 6 Chair/Lhj-yx-Wxeih Xfer(QC): 6 Toilet Transfer (QC): 6 Car Transfer (QC): 6 (simulated) Does the Patient Walk: Yes Walk 10 feet (QC): 6 Walk 50ft with 2 Turns (QC): 6 Walk 150 ft (QC): 6 Walking 10ft on Uneven Surface: 6 1 Step (curb) (QC): 9 4 Steps (QC): 9 12 Steps (QC): 9 Picking up an Object (QC): 6 (seated) Wheel 50 feet with 2 turns (QC: 88 Type: Manual Wheel 150 feet: 88 Type: Manual PT Plan Problem List Problem List: Activity Tolerance, Functional Strength, Safety, Balance, Gait, Transfer, Bed Mobility, ROM Treatment/Plan Treatment Plan: Continue Plan of Care Treatment Plan: Bed Mobility, Education, Functional Activity Violette, Functional Strength, Gait, Safety, Therapeutic Exercise, Transfers Treatment Duration: Feb 02, 2021 Frequency: 6 times per week Estimated Hrs Per Day: .25 hour per day Patient and/or Family Agrees t: Yes Safety Risks/Education Patient Education: Gait Training, Transfer Techniques, Correct Positioning, Safety Issues Teaching Recipient: Patient Teaching Methods: Demonstration, Discussion Response to Teaching: Reinforcement Needed Time/GCodes Time In: 821 Time Out: 0838 Total Billed Treatment Time: 16 Total Billed Treatment 1 visit FA CHUY LEVY PT January 09, 2021 08:52
--- NOTE | 2021-01-09 09:01 | Pulmonary Progress Note ---
Subjective Time Seen by a Provider: 09:00 Sepsis Event Evaluation Height, Weight, BMI Height: '" Weight: lbs. oz. kg; 30.37 BMI Method: Exam Exam Vital Signs Date Time Temp Pulse Resp B/P (MAP) Pulse Ox O2 Delivery O2 Flow Rate FiO2 01/09/21 06:46 94 Vapotherm 15.00 45 01/09/21 05:50 36.4 65 18 165/77 (106) 92 Vapotherm 15.00 45.00 01/09/21 03:10 90 Vapotherm 15.00 45 01/08/21 22:06 90 Vapotherm 15.00 45 01/08/21 20:15 Vapotherm 15.00 45 01/08/21 19:26 90 Vapotherm 15.00 45 01/08/21 18:11 36.5 63 20 176/90 (118) 93 Vapotherm 15.00 45.00 01/08/21 13:57 91 Vapotherm 15.00 45 I & O 01/09/21 07:00 Intake Total 2000 ml Output Total 2100 ml Balance -100 ml Height & Weight Height: '" Weight: lbs. oz. kg; 30.37 BMI Method: General Appearance: No Apparent Distress, WD/WN HEENT: PERRL/EOMI, Normal ENT Inspection, Pharynx Normal Neck: Full Range of Motion, Non Tender, Supple Respiratory: Chest Non Tender, No Accessory Muscle Use, No Respiratory Dist ress, Decreased Breath Sounds Cardiovascular: Regular Rate, Rhythm, No Edema Capillary Refill: Less Than 3 Seconds Gastrointestinal: normal bowel sounds, non tender, soft Extremity: Normal Capillary Refill, Normal Inspection Neurologic/Psychiatric: Alert Skin: Normal Color, Warm/Dry Lymphatic: No Adenopathy Results Lab Laboratory Tests 01/09/21 05:40 Assessment/Plan Assessment/Plan Acute on chronic respiratory failure -Repeat ABG -Currently on Vapotherm -BNP is elevated -Lasix 40mg daily -solumedrol 40 IV Q 6 Sepsis with UTI r/o PNA -Continue Abx -[place] cultures Hx of oxygen dependent COPD -Duoneb to Q4 -Oxygen CHF hx -Monitor Afib - controlled rate -Monitor BRIANNE MCGEE DO January 09, 2021 09:01
[2021-01-09] MEDS: FUROSEMIDE 40 MG/4 ML INJ (LASIX) IVP SCH (09:16)
[2021-01-09] MEDS: KCL 20 MEQ TAB (K-DUR) PO SCH (09:16)
--- NOTE | 2021-01-09 09:32 | Progress Note - Hospitalist ---
Subjective HPI/CC On Admission Date Seen by Provider: January 09, 2021 Time Seen by Provider: 10:00 Subjective/Events-last exam Pt doing pretty well Feels like she is stressed out Discontinued telemetry Pt off Vapotherm INR 2.0 Hgb 10 Review of Systems General: Fatigue, Malaise Pulmonary: Dyspnea Objective Exam Vital Signs Vital Signs Date Time Temp Pulse Resp B/P (MAP) Pulse Ox O2 Delivery O2 Flow Rate FiO2 01/09/21 21:22 98 High Flow N/C 5.00 01/09/21 18:00 36.5 73 20 157/84 (108) 01/09/21 06:46 45 Capillary Refill : Less Than 3 Seconds General Appearance: No Apparent Distress, WD/WN, Chronically ill Respiratory: Lungs Clear Cardiovascular: Irregularly Irregular Neurologic/Psychiatric: Alert, Oriented x3, Disoriented Results/Procedures Lab Laboratory Tests 01/09/21 05:40 Patient resulted labs reviewed. Assessment/Plan Assessment and Plan Assess & Plan/Chief Complaint Assessment: Acute respiratory failure AF long standing OAC Dementia Plan: Wean Vapotherm Monitor INR LEBRON MENA DO January 09, 2021 09:32
--- NOTE | 2021-01-09 13:32 | Occupational Ther Daily Note ---
OT Current Status-Daily Note Subjective No pain reported. Appearance Pt. up in chair. Agrees to work with OT. Mental Status/Objective Patient Orientation: Person, Place, Time, Situation Attachments: IV, Oxygen, Telemetry ADL-Treatment Therapy Code Descriptions/Definitions Functional [place] Measure: 0=Not Assessed/NA 4=Minimal Assistance 1=Total Assistance 5=Supervision or Setup 2=Maximal Assistance 6=Modified [place] 3=Moderate Assistance 7=Complete IndependenceSCALE: Activities may be completed with or without assistive devices. 6-Ngpqquentz-jipqfvw completes the activity by him/herself with no assistance from a helper. 5-Set-up or Clean-up Assistance-helper sets up or cleans up; patient completes activity. [place] assists only prior to or following the activity. 4-Supervision or Touching Assistance-helper provides verbal cues and/or touching/steadying and/or contact guard assistance as patient completes activity. Assistance may be provided throughout the activity or intermittently. 3-Partial/Moderate Assistance-helper does LESS THAN HALF the effort. [place] lifts, holds or supports trunk or limbs, but provides less than half the effort. 2-Substantial/Maximal Assistance-helper does MORE THAN HALF the effort. [place] lifts or holds trunk or limbs and provides more than half the effort. 6-Wamqnhwdy-rjhgop does ALL the effort. Patient does none of the effort to complete the activity. Or, the assistance of 2 or more helpers is required for the patient to complete the activity. If activity was not attempted, code reason: 7-Patient Refused. 9-Not Applicable-not attempted and the patient did not perform the activity before the current illness, exacerbation or injury. 10-Not Attempted due to Environmental Limitations-(lack of equipment, weather restraints, etc.). 88-Not Attempted due to Medical Conditions or Safety Concerns. Eating (QC): 5 Lower Body Dressing (QC): 2 (Max assist due to incontinence of urine in brief.) On/Off Footwear: 2 (Due to incontinence.) Toileting Hygiene (QC): 1 Toilet Transfer (QC): 4 (CGA) Other Treatment Pt. up in chair. OT brought in therapy sponge and red theraband. Pt. completed 20 bilateral hand squeezes with hand sponge and 2 UE exercises with theraband x 10 reps each for continued strengthening overall. Pt. reported that she needed to use the commode. Pt. stood with CGA and transferred to BSC. As she did, she become incontinent of urine and soaked through her brief. Urine ran down her leg, soaking her slippers and onto floor. Pt. transferred to the commode, and due to the urine, OT removed her brief and slippers, cleansed her legs and floor, and donned clean brief and slipper socks. Pt. would like to remain on BSC longer. Pt. has call light and all needs met. Nursing notified. Education OT Patient Education: Correct positioning, Modified ADL techniques, Progress toward Goal/Update tx plan, Purpose of tx/functional activities, Reviewed precautions, Rehab process, Transfer techniques Teaching Recipient: Patient Teaching Methods: Demonstration, Discussion Response to Teaching: Verbalize Understanding, Return Demonstration OT Short Term Goals Short Term Goals Time Frame: January 15, 2021 Eatin Oral hygiene: 5 Toileting hygiene: 4 Shower/bathe self: 4 Upper body dressin Lower body dressin Putting on/taking off footwear: 5 OT Fpc Goals Fpc Goals Time Frame: Jan 22, 2021 Eating (QC): 6 Oral Hygiene (QC): 6 Toileting Hygiene (QC): 6 Shower/Bathe Self (QC): 4 Upper Body Dressing (QC): 5 Lower Body Dressing (QC): 4 On/Off Footwear (QC): 5 Additional Goals: 1-Demonstrate ADL Tasks, 2-Verbalize Understanding, 3- ImproveStrength/Violette 1=Demonstrate adherence to instructed precautions during ADL tasks. 2=Patient will verbalize/demonstrate understanding of assistive devices/modifications for ADL. 3=Patient will improve strength/tolerance for activity to enable patient to perform ADL's. OT Education/Plan Problem List/Assessment Assessment: Decreased Activ Tolerance, Impaired I ADL's, Impaired Self-Care Skills Discharge Recommendations Plan/Recommendations: Continue POC Therapy Discharge Recommendati: Assisted Living, Post Acute OT Treatment Plan/Plan of Care Treatment,Training & Education: Yes Patient would benefit from OT for education, treatment and training to promote independence in ADL's, mobility, safety and/or upper extremity function for ADL's. Plan of Care: ADL Retraining, Functional Mobility, UE Funct Exercise/Act Treatment Duration: Jan 22, 2021 Frequency: 5 times per week Estimated Hrs Per Day: .25 hour per day Agreement: Yes Rehab Potential: Good Time/GCodes Start Time: 11:00 Stop Time: 11:25 Total Time Billed (hr/min): 25 Billed Treatment Time 1, Ex x 10minutes, ADL x 15minutes IVANIA LLANOS OT January 09, 2021 13:32
[2021-01-09 18:00] VITALS: BP 157/84
[2021-01-09] MEDS: warFARin 2 MG (COUMADIN) TAB PO SCH (18:28)
[2021-01-09] MEDS: ACETAMINOPHEN 500 MG TAB (TYLENOL) PO PRN (23:39)
[2021-01-10] MEDS: RT-ALBUTEROL/IPRATROPIUM 3 ML (DUONEB) VIAL INH SCH ×4 (02:40→20:55)
[2021-01-10] MEDS: methylPREDNISolone 40 MG/ML (Solu-MEDROL) VIAL IV SCH ×3 (06:09→18:01)
[2021-01-10] MEDS: GABAPENTIN 100 MG (NEURONTIN) CAP PO SCH ×3 (06:09→21:21)
[2021-01-10] MEDS: LEVOTHYROXINE 75 MCG (LEVOTHROID) TABLET PO SCH (06:09)
[2021-01-10 06:13] VITALS: BP 170/80
[2021-01-10] MEDS: AUGMENTIN 500 MG TAB (AMOXICILLIN/CLAVULANATE) PO SCH ×2 (09:02→21:21)
[2021-01-10] MEDS: DIGOXIN 0.125 MG (LANOXIN) TAB PO SCH (09:02)
[2021-01-10] MEDS: FUROSEMIDE 40 MG/4 ML INJ (LASIX) IVP SCH (09:02)
[2021-01-10] MEDS: DOCUSATE SODIUM 100 MG (COLACE) CAP PO SCH (09:02)
[2021-01-10] MEDS: SIMvastatin 20 MG (ZOCOR) TAB PO SCH (09:03)
[2021-01-10] MEDS: PANTOPRAZOLE 40 MG (PROTONIX) TAB PO SCH (09:03)
[2021-01-10] MEDS: KCL 20 MEQ TAB (K-DUR) PO SCH (09:04)
[2021-01-10] MEDS ORDERED: RT-ALBUTEROL/IPRATROPIUM 3 ML (DUONEB) VIAL INH SCH (11:30)
--- NOTE | 2021-01-10 12:18 | Progress Note - Hospitalist ---
Subjective HPI/CC On Admission Date Seen by Provider: January 10, 2021 Time Seen by Provider: 11:30 Subjective/Events-last exam Pt doing pretty well Will schedule DuoNebs TID Checked meds and labs No falls Probably discharge on Thursday Review of Systems General: Fatigue Pulmonary: Dyspnea Objective Exam Vital Signs Vital Signs Date Time Temp Pulse Resp B/P (MAP) Pulse Ox O2 Delivery O2 Flow Rate FiO2 01/10/21 20:55 94 High Flow N/C 5.00 01/10/21 17:44 36.0 60 20 181/85 (117) 01/09/21 06:46 45 Capillary Refill : Less Than 3 Seconds General Appearance: No Apparent Distress, WD/WN Respiratory: Lungs Clear Cardiovascular: Regular Rate, Rhythm Results/Procedures Lab Patient resulted labs reviewed. Assessment/Plan Assessment and Plan Assess & Plan/Chief Complaint Assessment: Acute respiratory failure AF long standing OAC Dementia Plan: Wean Vapotherm Monitor INR 01/10/21: Monitor O2 LEBRON MENA DO January 10, 2021 12:18
--- NOTE | 2021-01-10 14:23 | Physical Therapy Daily Note ---
PT Daily Note-Current Subjective Patient agrees to PT. Mental Status Patient Orientation: Normal For Age Attachments: Oxygen (NC HF 5L) Transfers SCALE: Activities may be completed with or without assistive devices. 3-Ryorcbjzyo-btzhejv completes the activity by him/herself with no assistance from a helper. 5-Set-up or Clean-up Assistance-helper sets up or cleans up; patient completes a ctivity. [place] assists only prior to or following the activity. 4-Supervision or Touching Assistance-helper provides verbal cues and/or touching/steadying and/or contact guard assistance as patient completes activity. Assistance may be provided throughout the activity or intermittently. 3-Partial/Moderate Assistance-helper does LESS THAN HALF the effort. [place] lifts, holds or supports trunk or limbs, but provides less than half the effort. 2-Substantial/Maximal Assistance-helper does MORE THAN HALF the effort. [place] lifts or holds trunk or limbs and provides more than half the effort. 3-Lamqxhvwh-hgtutu does ALL the effort. Patient does none of the effort to complete the activity. Or, the assistance of 2 or more helpers is required for the patient to complete the activity. If activity was not attempted, code reason: 7-Patient Refused. 9-Not Applicable-not attempted and the patient did not perform the activity before the current illness, exacerbation or injury. 10-Not Attempted due to Environmental Limitations-(lack of equipment, weather restraints, etc.). 88-Not Attempted due to Medical Conditions or Safety Concerns. Sit to Stand (QC): 4 (SBA) Toilet Transfer (QC): 4 (SBA) Patient toileted self without difficulty Gait Training Does the Patient Walk?: Yes Distance: 125' Walk 10 feet (QC): 4 (SBA) Walk 50 ft with 2 Turns(QC): 4 (SBA) Gait Assistive Device: FWW trunk flexed posture due to severe scoliosis/functional gait sequence Exercises Seated Therapy Exercises: Ankle pumps, Long arc quads Seated Reps: 12 Assessment SAO2 97% with activity on 5L O2 NC HF. Patient requires time to complete all functional tasks. Patient did perform hand hygiene after toileting. PT Medical Authorization Specialist Goals [facility] Goals PT [facility]it[facility]iary Goals Time Frame: Feb 02, 2021 Roll Left & Right (QC): 6 Sit to Lying (QC): 6 Lying-Sitting on Side/Bed(QC): 6 Sit to Stand (QC): 6 Chair/Fen-mc-Tsmcf Xfer(QC): 6 Toilet Transfer (QC): 6 Car Transfer (QC): 6 (simulated) Does the Patient Walk: Yes Walk 10 feet (QC): 6 Walk 50ft with 2 Turns (QC): 6 Walk 150 ft (QC): 6 Walking 10ft on Uneven Surface: 6 1 Step (curb) (QC): 9 4 Steps (QC): 9 12 Steps (QC): 9 Picking up an Object (QC): 6 (seated) Wheel 50 feet with 2 turns (QC: 88 Type: Manual Wheel 150 feet: 88 Type: Manual PT Plan Treatment/Plan Treatment Plan: Continue Plan of Care Treatment Plan: Bed Mobility, Education, Functional Activity Violette, Functional Strength, Gait, Safety, Therapeutic Exercise, Transfers Treatment Duration: Feb 02, 2021 Frequency: 6 times per week Estimated Hrs Per Day: .25 hour per day Patient and/or Family Agrees t: Yes Time/GCodes Time In: 1321 Time Out: 1351 Total Billed Treatment Time: 30 Total Billed Treatment 1 visit FA x 2 30 min EFRAIN CHERY PT January 10, 2021 14:23
--- NOTE | 2021-01-10 15:08 | Occupational Ther Daily Note ---
OT Current Status-Daily Note Subjective Pt alert, sitting on toilet. Pt agrees to therapy. Pt c/o pain in abdomen and lower back, asks for warm blankets in those areas after session. Mental Status/Objective Patient Orientation: Person, Place, Time, Situation Attachments: IV, Oxygen ADL-Treatment Mod A for sit to stand from toilet. Then assist to cleanse buttocks, pt assisted to cleanse michael area with CGA. Pt able to manipulate pants over hips with CGA. Pt ambulated to sink to wash hands. Pt then ambulated back to recl iner. Warm blankets place and pt made comfortable. Left in care of Respiratory. All needs met. Therapy Code Descriptions/Definitions Functional [place] Measure: 0=Not Assessed/NA 4=Minimal Assistance 1=Total Assistance 5=Supervision or Setup 2=Maximal Assistance 6=Modified [place] 3=Moderate Assistance 7=Complete IndependenceSCALE: Activities may be completed with or without assistive devices. 0-Teovtwfbhi-wcafgmh completes the activity by him/herself with no assistance from a helper. 5-Set-up or Clean-up Assistance-helper sets up or cleans up; patient completes activity. [place] assists only prior to or following the activity. 4-Supervision or Touching Assistance-helper provides verbal cues and/or touching/steadying and/or contact guard assistance as patient completes activity. Assistance may be provided throughout the activity or intermittently. 3-Partial/Moderate Assistance-helper does LESS THAN HALF the effort. [place] lifts, holds or supports trunk or limbs, but provides less than half the effort. 2-Substantial/Maximal Assistance-helper does MORE THAN HALF the effort. [place] lifts or holds trunk or limbs and provides more than half the effort. 5-Gzgzdykdq-eujddl does ALL the effort. Patient does none of the effort to complete the activity. Or, the assistance of 2 or more helpers is required for the patient to complete the activity. If activity was not attempted, code reason: 7-Patient Refused. 9-Not Applicable-not attempted and the patient did not perform the activity before the current illness, exacerbation or injury. 10-Not Attempted due to Environmental Limitations-(lack of equipment, weather restraints, etc.). 88-Not Attempted due to Medical Conditions or Safety Concerns. OT Short Term Goals Short Term Goals Time Frame: January 15, 2021 Eatin Oral hygiene: 5 Toileting hygiene: 4 Shower/bathe self: 4 Upper body dressin Lower body dressin Putting on/taking off footwear: 5 OT Halfway Goals Button Decorating Machine Operator Goals Time Frame: Jan 22, 2021 Eating (QC): 6 Oral Hygiene (QC): 6 Toileting Hygiene (QC): 6 Shower/Bathe Self (QC): 4 Upper Body Dressing (QC): 5 Lower Body Dressing (QC): 4 On/Off Footwear (QC): 5 Additional Goals: 1-Demonstrate ADL Tasks, 2-Verbalize Understanding, 3- ImproveStrength/Violette 1=Demonstrate adherence to instructed precautions during ADL tasks. 2=Patient will verbalize/demonstrate understanding of assistive devices/modifications for ADL. 3=Patient will improve strength/tolerance for activity to enable patient to perform ADL's. OT Education/Plan Problem List/Assessment Assessment: Decreased Activ Tolerance, Impaired Self-Care Skills Discharge Recommendations Plan/Recommendations: Continue POC Treatment Plan/Plan of Care Patient would benefit from OT for education, treatment and training to promote independence in ADL's, mobility, safety and/or upper extremity function for ADL's. Plan of Care: ADL Retraining, Functional Mobility, UE Funct Exercise/Act Treatment Duration: Jan 22, 2021 Frequency: 5 times per week Estimated Hrs Per Day: .25 hour per day Agreement: Yes Rehab Potential: Good Time/GCodes Start Time: 14:45 Stop Time: 15:00 Total Time Billed (hr/min): 15 Billed Treatment Time 1 visit-ADL 1 (15 min) ALEX CHICAS January 10, 2021 15:08
[2021-01-10] MEDS: LORazepam INJ 2 MG/ML (ATIVAN) VIAL IVP PRN (15:10)
[2021-01-10 17:44] VITALS: BP 181/85
[2021-01-10] MEDS: warFARin 2 MG (COUMADIN) TAB PO SCH (18:01)
[2021-01-10] MEDS: LATANOPROST 0.005% (XALATAN) OPHTH SOLN 2.5 ML OU SCH (21:27)
[2021-01-10] MEDS ORDERED: CALCIUM CARBONATE 500 MG (TUMS) TAB.CHEW ONE (22:25)
[2021-01-10] MEDS ORDERED: ONDANSETRON 4 MG/2 ML (SDV) Z0FRAN ONE (22:25)
[2021-01-10] MEDS ORDERED: ONDANSETRON 4 MG/2 ML (SDV) Z0FRAN IVP PRN (22:30)
[2021-01-10] MEDS: CALCIUM CARBONATE 500 MG (TUMS) TAB.CHEW PO PRN (22:34)
[2021-01-11] MEDS: methylPREDNISolone 40 MG/ML (Solu-MEDROL) VIAL IV SCH ×4 (00:29→17:19)
--- NOTE | 2021-01-11 05:47 | Progress Note - Hospitalist ---
Subjective HPI/CC On Admission Date Seen by Provider: January 11, 2021 Time Seen by Provider: 11:00 Subjective/Events-last exam Pt doing pretty well today INR is 3.6 so will hold Coumadin today Overall doing pretty well otherwise Rest of labs look okay Still pretty weak Review of Systems General: Fatigue Focused Exam Lactate Level 01/11/21 19:51: Lactic Acid Level 1.68 Objective Exam Vital Signs Vital Signs Date Time Temp Pulse Resp B/P (MAP) Pulse Ox O2 Delivery O2 Flow Rate FiO2 01/11/21 19:25 High Flow N/C 5.00 01/11/21 18:51 93 01/11/21 17:18 36.0 72 18 145/63 (90) 01/09/21 06:46 45 Capillary Refill : Less Than 3 Seconds General Appearance: No Apparent Distress, WD/WN, Chronically ill Respiratory: Lungs Clear Cardiovascular: Regular Rate, Rhythm Neurologic/Psychiatric: Alert, Oriented x3, Disoriented Results/Procedures Lab Laboratory Tests 01/11/21 06:15 01/11/21 19:51 Patient resulted labs reviewed. Assessment/Plan Assessment and Plan Assess & Plan/Chief Complaint Assessment: Acute respiratory failure AF long standing OAC Dementia Plan: Wean Vapotherm Monitor INR 01/10/21: Monitor O2 01/11/21: Supportive care Monitor INR LEBRON MENA DO January 11, 2021 05:47
[2021-01-11 06:31] VITALS: BP 169/83
[2021-01-11 06:35] LABS: BASOPHILS # (AUTO) 0.1 10^3/uL (0.0-0.1); BASOPHILS % (AUTO) 0 % (0-10); EOSINOPHILS % (AUTO) 0 % (0-10); HEMATOCRIT 39 % (35-52); HEMOGLOBIN 11.7 g/dL (11.5-16.0); LYMPHOCYTES # (AUTO) 0.3 10^3/uL (1.0-4.0); LYMPHOCYTES % (AUTO) 2 % (12-44); MEAN CORPUSCULAR HEMOGLOBIN 27 pg (25-34); MEAN CORPUSCULAR HGB CONC 30 g/dL (32-36); MEAN CORPUSCULAR VOLUME 90 fL (80-99); MEAN PLATELET VOLUME 9.2 fL (9.0-12.2); MONOCYTES # (AUTO) 0.5 10^3/uL (0.0-1.0); MONOCYTES % (AUTO) 3 % (0-12); NEUTROPHILS # (AUTO) 12.1 10^3/uL (1.8-7.8); NEUTROPHILS % (AUTO) 92 % (42-75); PLATELET COUNT 367 10^3/uL (130-400); WHITE BLOOD COUNT 13.2 10^3/uL (4.3-11.0)
[2021-01-11] MEDS: GABAPENTIN 100 MG (NEURONTIN) CAP PO SCH ×3 (06:39→21:50)
[2021-01-11] MEDS: LEVOTHYROXINE 75 MCG (LEVOTHROID) TABLET PO SCH (06:39)
[2021-01-11 06:44] LABS: ALBUMIN 3.1 GM/DL (3.2-4.5); CHLORIDE 98 MMOL/L (98-107); SODIUM 142 MMOL/L (135-145)
[2021-01-11 06:45] LABS: CALCIUM 8.9 MG/DL (8.5-10.1)
[2021-01-11 06:47] LABS: GLUCOSE 150 MG/DL (70-105); INR 3.7 (0.8-1.4); PROTHROMBIN TIME PATIENT 36.9 SEC (12.2-14.7)
[2021-01-11 06:48] LABS: BILIRUBIN,TOTAL 0.6 MG/DL (0.1-1.0); CARBON DIOXIDE 35 MMOL/L (21-32)
[2021-01-11 06:50] LABS: ALKALINE PHOSPHATASE 41 U/L (40-136); CREATININE SERUM 0.66 MG/DL (0.60-1.30); GFR ESTIMATED > 60
[2021-01-11 06:51] LABS: BUN/CREATININE RATIO 33
[2021-01-11 06:53] LABS: ALANINE AMINOTRANSFERASE 26 U/L (0-55)
[2021-01-11 07:12] LABS: ANISOCYTOSIS SLIGHT; BAND NEUTROPHILS 6 %; HYPOCHROMASIA SLIGHT; LYMPHOCYTES % (MANUAL) 5 %; MONOCYTES % (MANUAL) 2 %; NEUTROPHILS % (MANUAL) 87 %; POIKILOCYTOSIS SLIGHT
[2021-01-11] MEDS: RT-ALBUTEROL/IPRATROPIUM 3 ML (DUONEB) VIAL INH SCH ×3 (07:42→18:51)
[2021-01-11] MEDS: KCL 20 MEQ TAB (K-DUR) PO SCH (09:57)
[2021-01-11] MEDS: PANTOPRAZOLE 40 MG (PROTONIX) TAB PO SCH (09:57)
[2021-01-11] MEDS: DIGOXIN 0.125 MG (LANOXIN) TAB PO SCH (09:57)
[2021-01-11] MEDS: AUGMENTIN 500 MG TAB (AMOXICILLIN/CLAVULANATE) PO SCH ×2 (09:57→21:50)
[2021-01-11] MEDS: SIMvastatin 20 MG (ZOCOR) TAB PO SCH (09:57)
[2021-01-11] MEDS: FUROSEMIDE 40 MG/4 ML INJ (LASIX) IVP SCH (09:57)
--- NOTE | 2021-01-11 10:23 | Physical Therapy Daily Note ---
PT Daily Note-Current Subjective Patient agrees to PT. Incontinent urine with patient ambulating to toilet. Mental Status Patient Orientation: Normal For Age Attachments: Oxygen Transfers SCALE: Activities may be completed with or without assistive devices. 5-Hbiilwqobh-ncmmhwk completes the activity by him/herself with no assistance from a helper. 5-Set-up or Clean-up Assistance-helper sets up or cleans up; patient completes activity. [place] assists only prior to or following the activity. 4-Supervision or Touching Assistance-helper provides verbal cues and/or touching/steadying and/or contact guard assistance as patient completes activity. Assistance may be provided throughout the activity or intermittently. 3-Partial/Moderate Assistance-helper does LESS THAN HALF the effort. [place] lifts, holds or supports trunk or limbs, but provides less than half the effort. 2-Substantial/Maximal Assistance-helper does MORE THAN HALF the effort. [place] lifts or holds trunk or limbs and provides more than half the effort. 3-Nxhxcsfwt-gzaziv does ALL the effort. Patient does none of the effort to complete the activity. Or, the assistance of 2 or more helpers is required for the patient to complete the activity. If activity was not attempted, code reason: 7-Patient Refused. 9-Not Applicable-not attempted and the patient did not perform the activity before the current illness, exacerbation or injury. 10-Not Attempted due to Environmental Limitations-(lack of equipment, weather restraints, etc.). 88-Not Attempted due to Medical Conditions or Safety Concerns. Sit to Stand (QC): 4 (SBA) Toilet Transfer (QC): 4 (SBA) patient reports she sleeps in recliner and will not return to bed during this stay/patient requires a lot of time to complete toileting with changing brief and cleansing after incontinence Gait Training Does the Patient Walk?: Yes Distance: 100' Walk 10 feet (QC): 4 (SBA) Walk 50 ft with 2 Turns(QC): 4 (SBA) Gait Assistive Device: FWW very slow, functional gait sequence/trunk flexed posture Exercises Seated Therapy Exercises: Ankle pumps, Long arc quads Seated Reps: 12 Assessment Patient requires time to complete all functional tasks. Patient remains up in recliner with needs met. PT Shelter Goals Shelter Goals PT Shelter Goals Time Frame: Feb 02, 2021 Roll Left & Right (QC): 6 Sit to Lying (QC): 6 Lying-Sitting on Side/Bed(QC): 6 Sit to Stand (QC): 6 Chair/Mkh-pm-Yykcu Xfer(QC): 6 Toilet Transfer (QC): 6 Car Transfer (QC): 6 (simulated) Does the Patient Walk: Yes Walk 10 feet (QC): 6 Walk 50ft with 2 Turns (QC): 6 Walk 150 ft (QC): 6 Walking 10ft on Uneven Surface: 6 1 Step (curb) (QC): 9 4 Steps (QC): 9 12 Steps (QC): 9 Picking up an Object (QC): 6 (seated) Wheel 50 feet with 2 turns (QC: 88 Type: Manual Wheel 150 feet: 88 Type: Manual PT Plan Treatment/Plan Treatment Plan: Continue Plan of Care Treatment Plan: Bed Mobility, Education, Functional Activity [place]te, Functional Strength, Gait, Safety, Therapeutic Exercise, Transfers Treatment Duration: Feb 02, 2021 Frequency: 6 times per week Estimated Hrs Per Day: .25 hour per day Patient and/or Family Agrees t: Yes Time/GCodes Time In: 853 Time Out: 922 Total Billed Treatment Time: 29 Total Billed Treatment 1 visit FA x 2 29 min EFRAIN CHERY PT January 11, 2021 10:23
[2021-01-11] MEDS: warFARin 2 MG (COUMADIN) TAB PO SCH (11:59)
--- NOTE | 2021-01-11 12:30 | Occupational Ther Daily Note ---
OT Current Status-Daily Note Subjective Pt AxO, call light on. Desires bathroom. Pt denies pain, agrees to tx. Mental Status/Objective Patient Orientation: Normal For Age Attachments: Oxygen ADL-Treatment Therapy Code Descriptions/Definitions Functional [place] Measure: 0=Not Assessed/NA 4=Minimal Assistance 1=Total Assistance 5=Supervision or Setup 2=Maximal Assistance 6=Modified [place] 3=Moderate Assistance 7=Complete IndependenceSCALE: Activities may be completed with or without assistive devices. 1-Mpncgdjkkl-fyapals completes the activity by him/herself with no assistance from a helper. 5-Set-up or Clean-up Assistance-helper sets up or cleans up; patient completes activity. [place] assists only prior to or following the activity. 4-Supervision or Touching Assistance-helper provides verbal cues and/or touching/steadying and/or contact guard assistance as patient completes activity. Assistance may be provided throughout the activity or intermittently. 3-Partial/Moderate Assistance-helper does LESS THAN HALF the effort. [place] lifts, holds or supports trunk or limbs, but provides less than half the effort. 2-Substantial/Maximal Assistance-helper does MORE THAN HALF the effort. [place] lifts or holds trunk or limbs and provides more than half the effort. 3-Nrmxjcrfp-ycmhqj does ALL the effort. Patient does none of the effort to complete the activity. Or, the assistance of 2 or more helpers is required for the patient to complete the activity. If activity was not attempted, code reason: 7-Patient Refused. 9-Not Applicable-not attempted and the patient did not perform the activity before the current illness, exacerbation or injury. 10-Not Attempted due to Environmental Limitations-(lack of equipment, weather restraints, etc.). 88-Not Attempted due to Medical Conditions or Safety Concerns. Eating (QC): 6 Oral Hygiene (QC): 4 (per clinical judgment/ balance.) Shower/Bathe Self (QC): 7 Upper Body Dressing (QC): 3 (min A for gown donning around back (coat s imulation)) Lower Body Dressing (QC): 4 (Pt threads on toilet, sit to stand SBA and completes hike with SBA.) On/Off Footwear: 7 Toileting Hygiene (QC): 4 (SBA) Toilet Transfer (QC): 4 (SBA, use of walker.) Other Treatment Sit to stand SBA, ambulates to toilet with SBA. Pt able to complete LB dressing/ toileting as outlined. Requires increased time. Pt then washess hands with increased time/ UE supported on sink, expresses back is fatigued. Returns to chair with OT applying powder to pannus; all needs met, call light in reach. Education OT Patient Education: Correct positioning, Purpose of tx/functional activities, Safety issues Teaching Recipient: Patient Teaching Methods: Demonstration, Discussion Response to Teaching: Verbalize Understanding, Return Demonstration OT Short Term Goals Short Term Goals Time Frame: January 15, 2021 Eatin Oral hygiene: 5 Toileting hygiene: 4 Shower/bathe self: 4 Upper body dressin Lower body dressin Putting on/taking off footwear: 5 OT Residential Goals Residential Goals Time Frame: Jan 22, 2021 Eating (QC): 6 Oral Hygiene (QC): 6 Toileting Hygiene (QC): 6 Shower/Bathe Self (QC): 4 Upper Body Dressing (QC): 5 Lower Body Dressing (QC): 4 On/Off Footwear (QC): 5 Additional Goals: 1-Demonstrate ADL Tasks, 2-Verbalize Understanding, 3-Im proveStrength/Violette 1=Demonstrate adherence to instructed precautions during ADL tasks. 2=Patient will verbalize/demonstrate understanding of assistive devices/modifications for ADL. 3=Patient will improve strength/tolerance for activity to enable patient to perform ADL's. OT Education/Plan Problem List/Assessment Assessment: Decreased Activ Tolerance, Decreased UE Strength, Impaired I ADL's, Impaired Self-Care Skills Discharge Recommendations Plan/Recommendations: Continue POC Therapy Discharge Recommendati: Home & Family, Post Acute OT Treatment Plan/Plan of Care Treatment,Training & Education: Yes Patient would benefit from OT for education, treatment and training to promote independence in ADL's, mobility, safety and/or upper extremity function for ADL's. Plan of Care: ADL Retraining, Functional Mobility, UE Funct Exercise/Act Treatment Duration: Jan 22, 2021 Frequency: 5 times per week Estimated Hrs Per Day: .25 hour per day Agreement: Yes Rehab Potential: Good Time/GCodes Start Time: 10:30 Stop Time: 11:00 Total Time Billed (hr/min): 30 Billed Treatment Time 1, ADL 2(30) KANDY HAWKINS OTR January 11, 2021 12:30
[2021-01-11 17:18] VITALS: BP 145/63
[2021-01-11] MEDS: LORazepam INJ 2 MG/ML (ATIVAN) VIAL IVP PRN (18:43)
[2021-01-11] MEDS: ACETAMINOPHEN 500 MG TAB (TYLENOL) PO PRN (18:43)
[2021-01-11 19:58] LABS: BASOPHILS % (AUTO) 0 % (0-10); EOSINOPHILS % (AUTO) 0 % (0-10); HEMATOCRIT 40 % (35-52); LYMPHOCYTES # (AUTO) 0.3 10^3/uL (1.0-4.0); LYMPHOCYTES % (AUTO) 3 % (12-44); MEAN CORPUSCULAR HEMOGLOBIN 27 pg (25-34); MEAN CORPUSCULAR HGB CONC 30 g/dL (32-36); MEAN CORPUSCULAR VOLUME 89 fL (80-99); MEAN PLATELET VOLUME 8.9 fL (9.0-12.2); MONOCYTES # (AUTO) 0.3 10^3/uL (0.0-1.0); MONOCYTES % (AUTO) 3 % (0-12); NEUTROPHILS # (AUTO) 10.4 10^3/uL (1.8-7.8); NEUTROPHILS % (AUTO) 91 % (42-75); PLATELET COUNT 392 10^3/uL (130-400); WHITE BLOOD COUNT 11.4 10^3/uL (4.3-11.0)
[2021-01-11] MEDS: fentaNYL INJ 100 MCG/2 ML AMP IVP PRN (20:01)
[2021-01-11 20:12] LABS: ALBUMIN 3.3 GM/DL (3.2-4.5); CHLORIDE 95 MMOL/L (98-107); POTASSIUM 4.3 MMOL/L (3.6-5.0); SODIUM 138 MMOL/L (135-145)
[2021-01-11 20:13] LABS: AMYLASE 79 U/L (25-125)
[2021-01-11 20:14] LABS: GLUCOSE 157 MG/DL (70-105); TOTAL PROTEIN 6.6 GM/DL (6.4-8.2)
[2021-01-11 20:15] LABS: CARBON DIOXIDE 34 MMOL/L (21-32)
[2021-01-11 20:16] LABS: BILIRUBIN,TOTAL 0.7 MG/DL (0.1-1.0)
[2021-01-11 20:17] LABS: ALKALINE PHOSPHATASE 51 U/L (40-136); ERYTHROCYTE SEDIMENTATION RATE 19 MM/HR (0-30)
[2021-01-11 20:21] LABS: ALANINE AMINOTRANSFERASE 26 U/L (0-55); LIPASE 30 U/L (8-78)
--- NOTE | 2021-01-11 20:39 | Diagnostic Imaging Report ---
INDICATION: Abdominal pain. COMPARISON: CT abdomen and pelvis of 01/03/2021. FINDINGS: Left-sided double-J ureteral stent is in stable position. Nonobstructive bowel gas pattern. Air-filled structure in the right upper quadrant is likely a loop of colon, but this cannot be confirmed on this supine exam. IVC filter is in stable position. IMPRESSION: Right upper quadrant gas is likely within a loop of colon, but consideration should be given for follow-up upright abdominal radiograph to exclude the possibility of free intraperitoneal air. Dictated by: Dictated on workstation # [id number]
[2021-01-11 21:23] LABS: BUN/CREATININE RATIO 30; CREATININE SERUM 0.77 MG/DL (0.60-1.30); GFR ESTIMATED > 60
[2021-01-11] MEDS: LATANOPROST 0.005% (XALATAN) OPHTH SOLN 2.5 ML OU SCH (22:27)
[2021-01-11 22:43] LABS: BILIRUBIN,URINE NEGATIVE (NEGATIVE); CLARITY,URINE CLEAR; COLOR,URINE YELLOW; GLUCOSE, URINE (UA) NEGATIVE (NEGATIVE); KETONES,URINE NEGATIVE (NEGATIVE); LEUKOCYTE ESTERASE ,URINE NEGATIVE (NEGATIVE); NITRITE,URINE NEGATIVE (NEGATIVE); PROTEIN,URINE TRACE (NEGATIVE)
[2021-01-12 00:02] LABS: AMORPHOUS SEDIMENT,UR FEW AMOR URATES /LPF; BACTERIA,URINE TRACE /HPF; WBC,URINE 0-2 /HPF
[2021-01-12] MEDS: methylPREDNISolone 40 MG/ML (Solu-MEDROL) VIAL IV SCH ×4 (00:30→17:03)
[2021-01-12 05:33] LABS: BASOPHILS % (AUTO) 0 % (0-10); EOSINOPHILS % (AUTO) 0 % (0-10); HEMATOCRIT 39 % (35-52); HEMOGLOBIN 11.8 g/dL (11.5-16.0); LYMPHOCYTES # (AUTO) 0.3 10^3/uL (1.0-4.0); LYMPHOCYTES % (AUTO) 2 % (12-44); MEAN CORPUSCULAR HEMOGLOBIN 27 pg (25-34); MEAN CORPUSCULAR HGB CONC 30 g/dL (32-36); MEAN CORPUSCULAR VOLUME 89 fL (80-99); MEAN PLATELET VOLUME 9.2 fL (9.0-12.2); MONOCYTES # (AUTO) 0.3 10^3/uL (0.0-1.0); MONOCYTES % (AUTO) 2 % (0-12); NEUTROPHILS # (AUTO) 15.9 10^3/uL (1.8-7.8); NEUTROPHILS % (AUTO) 95 % (42-75); PLATELET COUNT 341 10^3/uL (130-400); WHITE BLOOD COUNT 16.7 10^3/uL (4.3-11.0)
[2021-01-12 05:46] LABS: CHLORIDE 97 MMOL/L (98-107); POTASSIUM 4.3 MMOL/L (3.6-5.0); SODIUM 140 MMOL/L (135-145)
[2021-01-12 05:47] LABS: CALCIUM 8.7 MG/DL (8.5-10.1)
[2021-01-12 05:48] LABS: GLUCOSE 161 MG/DL (70-105)
[2021-01-12 05:49] LABS: TOTAL PROTEIN 5.9 GM/DL (6.4-8.2)
[2021-01-12 05:50] LABS: BILIRUBIN,TOTAL 0.7 MG/DL (0.1-1.0); CARBON DIOXIDE 36 MMOL/L (21-32)
[2021-01-12 05:52] LABS: ALKALINE PHOSPHATASE 41 U/L (40-136); CREATININE SERUM 0.72 MG/DL (0.60-1.30); GFR ESTIMATED > 60
[2021-01-12 05:53] LABS: BUN/CREATININE RATIO 29
[2021-01-12 05:55] LABS: ALANINE AMINOTRANSFERASE 22 U/L (0-55)
[2021-01-12 06:00] LABS: INR 4.6 (0.8-1.4); PROTHROMBIN TIME PATIENT 43.8 SEC (12.2-14.7)
[2021-01-12 06:27] VITALS: BP 166/85
--- NOTE | 2021-01-12 06:44 | Progress Note - Hospitalist ---
Subjective HPI/CC On Admission Date Seen by Provider: January 12, 2021 Time Seen by Provider: 11:00 Subjective/Events-last exam Had severe pain yesterday prompting w/u with Dr Ortiz consult IV abx maintained Diverticulitis or gallbladder source suspected INR 4.6 holding Coumadin Patient feels better now Review of Systems General: Fatigue, Malaise Gastrointestinal: Abdominal Pain Focused Exam Lactate Level 01/11/21 19:51: Lactic Acid Level 1.68 Objective Exam Vital Signs Vital Signs Date Time Temp Pulse Resp B/P (MAP) Pulse Ox O2 Delivery O2 Flow Rate FiO2 01/13/21 05:33 36.5 77 20 142/72 (95) 90 High Flow N/C 6.00 01/09/21 06:46 45 Capillary Refill : Less Than 3 Seconds General Appearance: No Apparent Distress, WD/WN, Chronically ill Respiratory: Lungs Clear Cardiovascular: Regular Rate, Rhythm Neurologic/Psychiatric: Alert, Oriented x3 Results/Procedures Lab Patient resulted labs reviewed. Assessment/Plan Assessment and Plan Assess & Plan/Chief Complaint Assessment: Acute respiratory failure AF long standing OAC Dementia Plan: Wean Vapotherm Monitor INR 01/10/21: Monitor O2 01/11/21: Supportive care Monitor INR 01/12/21: IV abx Steroids Monitor closely LEBRON MENA DO January 12, 2021 06:44
[2021-01-12] MEDS: GABAPENTIN 100 MG (NEURONTIN) CAP PO SCH ×3 (07:30→20:16)
[2021-01-12] MEDS: LEVOTHYROXINE 75 MCG (LEVOTHROID) TABLET PO SCH (07:30)
[2021-01-12] MEDS ORDERED: CIPROFLOXACIN IV 400MG/200ML 200 ML IV SCH (09:00)
[2021-01-12] MEDS ORDERED: metroNIDAZOLE 500MG/100ML IVPB 100 ML IV SCH (09:00)
--- NOTE | 2021-01-12 09:35 | Physical Therapy Daily Note ---
PT Daily Note-Current Subjective Patient is in bed and agrees to PT. Pain Numeric Pain Scale: 5-Moderate Pain Location: Medial, Lower Location Body Site: Abdomen Pain Description: Pressure Mental Status Patient Orientation: Normal For Age Attachments: Oxygen Transfers SCALE: Activities may be completed with or without assistive devices. 3-Gyoxyoxuyo-uhpraoa completes the activity by him/herself with no assistance from a helper. 5-Set-up or Clean-up Assistance-helper sets up or cleans up; patient completes activity. [place] assists only prior to or following the activity. 4-Supervision or Touching Assistance-helper provides verbal cues and/or touching/steadying and/or contact guard assistance as patient completes activity. Assistance may be provided throughout the activity or intermittently. 3-Partial/Moderate Assistance-helper does LESS THAN HALF the effort. [place] lifts, holds or supports trunk or limbs, but provides less than half the effort. 2-Substantial/Maximal Assistance-helper does MORE THAN HALF the effort. [place] lifts or holds trunk or limbs and provides more than half the effort. 6-Jasgmmman-ssgvog does ALL the effort. Patient does none of the effort to complete the activity. Or, the assistance of 2 or more helpers is required for the patient to complete the activity. If activity was not attempted, code reason: 7-Patient Refused. 9-Not Applicable-not attempted and the patient did not perform the activity before the current illness, exacerbation or injury. 10-Not Attempted due to Environmental Limitations-(lack of equipment, weather restraints, etc.). 88-Not Attempted due to Medical Conditions or Safety Concerns. Roll Left & Right (QC): 4 (SBA) Sit to Lying (QC): 4 (SBA) Lying to Sitting/Side of Bed(Q: 4 (SBA) Sit to Stand (QC): 4 (SBA) Chair/Jcu-vc-Lpygz Xfer(QC): 4 (SBA) Toilet Transfer (QC): 4 (SBA) Car Transfer (QC): 4 (simulated) Gait Training Does the Patient Walk?: Yes Distance: 150' Walk 10 feet (QC): 4 (SBA) Walk 50 ft with 2 Turns(QC): 4 (SBA) Walk 150 ft (QC): 4 (SBA) Walking 10ft/uneven surface-QC: 4 (SBA) Gait Assistive Device: FWW very slow, steady gait sequence with trunk flexed posture. Wheelchair Training Wheel 50 ft with 2 turns (QC): 7 Wheel 150 ft (QC): 7 Stair Training 1 Step (curb) (QC): 9 4 Steps (QC): 9 12 Steps (QC): 9 Balance Picking up an Object (QC): 6 (seated position) Assessment Patient tolerated treatment and requires time to complete all functional tasks. Plan dismissal to [place] next week. PT Director Educational Radio Goals Care Home Goals PT Director Educational Radio Goals Time Frame: Feb 02, 2021 Roll Left & Right (QC): 6 Sit to Lying (QC): 6 Lying-Sitting on Side/Bed(QC): 6 Sit to Stand (QC): 6 Chair/Gac-ck-Hseps Xfer(QC): 6 Toilet Transfer (QC): 6 Car Transfer (QC): 6 (simulated) Does the Patient Walk: Yes Walk 10 feet (QC): 6 Walk 50ft with 2 Turns (QC): 6 Walk 150 ft (QC): 6 Walking 10ft on Uneven Surface: 6 1 Step (curb) (QC): 9 4 Steps (QC): 9 12 Steps (QC): 9 Picking up an Object (QC): 6 (seated) Wheel 50 feet with 2 turns (QC: 88 Type: Manual Wheel 150 feet: 88 Type: Manual PT Plan Treatment/Plan Treatment Plan: Continue Plan of Care Treatment Plan: Bed Mobility, Education, Functional Activity [place], Functional Strength, Gait, Safety, Therapeutic Exercise, Transfers Treatment Duration: Feb 02, 2021 Frequency: 6 times per week Estimated Hrs Per Day: .25 hour per day Patient and/or Family Agrees t: Yes Time/GCodes Time In: 750 Time Out: 819 Total Billed Treatment Time: 29 Total Billed Treatment 1 visit FA x 2 29 min EFRAIN CHERY PT January 12, 2021 09:35
[2021-01-12] MEDS ORDERED: PIPERACILLIN/TAZO 4.5 GM/NS 100 ML IV NR ×2 (09:45)
[2021-01-12 09:51] VITALS: BP 124/61
[2021-01-12] MEDS: RT-ALBUTEROL/IPRATROPIUM 3 ML (DUONEB) VIAL INH SCH (09:54)
[2021-01-12] MEDS: PANTOPRAZOLE 40 MG (PROTONIX) TAB PO SCH (09:58)
[2021-01-12] MEDS: SIMvastatin 20 MG (ZOCOR) TAB PO SCH (09:58)
[2021-01-12] MEDS: KCL 20 MEQ TAB (K-DUR) PO SCH (09:58)
[2021-01-12] MEDS: DIGOXIN 0.125 MG (LANOXIN) TAB PO SCH (09:58)
--- NOTE | 2021-01-12 09:58 | Progress Note ---
Subjective Date Seen by a Provider: January 12, 2021 Time Seen by a Provider: 09:30 Subjective/Events-last exam Patient seen with Dr. Ortiz. Patient reports having some abdominal pain. Reports that she has been having the pain on and off for the past year. Does reports history of IBS with alternating between diarrhea and constipation. Denies any nausea or vomiting. No reflux. Does report a family history of gallbladder disease. Tolerating clear liquid diet. Focused Exam Lactate Level 01/11/21 19:51: Lactic Acid Level 1.68 Objective Exam Vital Signs Date Time Temp Pulse Resp B/P (MAP) Pulse Ox O2 Delivery O2 Flow Rate FiO2 01/12/21 06:27 35.8 65 20 166/85 (112) 95 High Flow N/C 4.50 01/11/21 19:25 High Flow N/C 5.00 01/11/21 18:51 93 High Flow N/C 5.00 01/11/21 17:18 36.0 72 18 145/63 (90) 94 High Flow N/C 5.00 01/11/21 13:30 92 High Flow N/C 5.00 I & O 01/12/21 07:00 Intake Total 1870 ml Balance 1870 ml Capillary Refill : Less Than 3 Seconds General Appearance: No Apparent Distress, WD/WN, Other (weakness) Neck: Normal Inspection, Supple Respiratory: No Accessory Muscle Use, No Respiratory Distress Cardiovascular: Regular Rate, Rhythm, No Edema Gastrointestinal: normal bowel sounds, soft, tenderness (diffuse, but seems more painful in LLQ) Extremity: Normal Inspection, Normal Range of Motion Neurologic/Psychiatric: Alert, Oriented x3 Skin: Normal Color, Warm/Dry Results Lab Laboratory Tests 01/11/21 16:39: Glucometer 176H 01/11/21 19:51: White Blood Count 11.4H, Red Blood Count 4.50, Hemoglobin 12.0, Hematocrit 40, Mean Corpuscular Volume 89, Mean Corpuscular Hemoglobin 27, Mean Corpuscular Hemoglobin Concent 30L, Red Cell Distribution Width 17.8H, Platelet Count 392, Mean Platelet Volume 8.9L, Immature Granulocyte % (Auto) 3, Neutrophils (%) (Auto) 91H, Lymphocytes (%) (Auto) 3L, Monocytes (%) (Auto) 3, Eosinophils (%) (Auto) 0, Basophils (%) (Auto) 0, Neutrophils # (Auto) 10.4H, Lymphocytes # (Auto) 0.3L, Monocytes # (Auto) 0.3, Eosinophils # (Auto) 0.0, Basophils # (Auto) 0.0, Immature Granulocyte # (Auto) 0.3H, Erythrocyte Sedimentation Rate 19, Sodium Level 138, Potassium Level 4.3, Chloride Level 95L, Carbon Dioxide Level 34H, Anion Gap 9, Blood Urea Nitrogen 23H, Creatinine 0.77, Estimat Glomerular Filtration Rate > 60, BUN/Creatinine Ratio 30, Glucose Level 157H, Lactic Acid Level 1.68, Calcium Level 9.0, Corrected Calcium 9.6, Total Bilirubin 0.7, Aspartate Amino Transf (AST/SGOT) 17, Alanine Aminotransferase (ALT/SGPT) 26, Alkaline Phosphatase 51, Total Protein 6.6, Albumin 3.3, Amylase Level 79, Lipase 30, Procalcitonin 0.74H 01/11/21 22:22: Urine Color YELLOW, Urine Clarity CLEAR, Urine pH 6.0, Urine Specific [place] 1.015L, Urine Protein TRACEH, Urine Glucose (UA) NEGATIVE, Urine Ketones NEGATIVE, Urine Nitrite NEGATIVE, Urine Bilirubin NEGATIVE, Urine Urobilinogen 0.2, Urine Leukocyte Esterase NEGATIVE, Urine RBC (Auto) 2+H, Urine RBC 10-25H, Urine WBC 0-2, Urine Crystals PRESENTH, Urine Amorphous Sediment FEW NICOLE URATESH, Urine Bacteria TRACE, Urine Casts PRESENT, Urine Hyaline Casts 2-5H, Urine Mucus NEGATIVE, Urine Culture Indicated NO 01/12/21 05:25: White Blood Count 16.7H, Red Blood Count 4.36, Hemoglobin 11.8, Hematocrit 39, Mean Corpuscular Volume 89, Mean Corpuscular Hemoglobin 27, Mean Corpuscular Hemoglobin Concent 30L, Red Cell Distribution Width 17.4H, Platelet Count 341, Mean Platelet Volume 9.2, Immature Granulocyte % (Auto) 1, Neutrophils (%) (Auto) 95H, Lymphocytes (%) (Auto) 2L, Monocytes (%) (Auto) 2, Eosinophils (%) (Auto) 0, Basophils (%) (Auto) 0, Neutrophils # (Auto) 15.9H, Lymphocytes # (Au to) 0.3L, Monocytes # (Auto) 0.3, Eosinophils # (Auto) 0.0, Basophils # (Auto) 0.0, Immature Granulocyte # (Auto) 0.2H, Sodium Level 140, Potassium Level 4.3, Chloride Level 97L, Carbon Dioxide Level 36H, Anion Gap 7, Blood Urea Nitrogen 21H, Creatinine 0.72, Estimat Glomerular Filtration Rate > 60, BUN/Creatinine Ratio 29, Glucose Level 161H, Calcium Level 8.7, Corrected Calcium 9.5, Total Bilirubin 0.7, Aspartate Amino Transf (AST/SGOT) 14, Alanine Aminotransferase (ALT/SGPT) 22, Alkaline Phosphatase 41, Total Protein 5.9L, Albumin 3.0L, Prothrombin Time 43.8H, INR Comment 4.6H Assessment/Plan Assessment/Plan Assess & Plan/Chief Complaint An 85 year old female with abdominal pain, sigmoid diverticulitis, 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
[2021-01-12] MEDS: FUROSEMIDE 40 MG/4 ML INJ (LASIX) IVP SCH (09:59)
--- NOTE | 2021-01-12 10:03 | Occupational Ther Daily Note ---
OT Current Status-Daily Note Subjective Pt upright in bed talking on phone, agrees to tx. States pain in abdomen. Mental Status/Objective Patient Orientation: Person, Place, Situation ADL-Treatment Therapy Code Descriptions/Definitions Functional [place] Measure: 0=Not Assessed/NA 4=Minimal Assistance 1=Total Assistance 5=Supervision or Setup 2=Maximal Assistance 6=Modified [place] 3=Moderate Assistance 7=Complete IndependenceSCALE: Activities may be completed with or without assistive devices. 0-Ikjtouweum-vsruobd completes the activity by him/herself with no assistance f rom a helper. 5-Set-up or Clean-up Assistance-helper sets up or cleans up; patient completes activity. [place] assists only prior to or following the activity. 4-Supervision or Touching Assistance-helper provides verbal cues and/or touching/steadying and/or contact guard assistance as patient completes activity. Assistance may be provided throughout the activity or intermittently. 3-Partial/Moderate Assistance-helper does LESS THAN HALF the effort. [place] lifts, holds or supports trunk or limbs, but provides less than half the effort. 2-Substantial/Maximal Assistance-helper does MORE THAN HALF the effort. [place] lifts or holds trunk or limbs and provides more than half the effort. 8-[place]un-gbwxzh does ALL the effort. Patient does none of the effort to complete the activity. Or, the assistance of 2 or more helpers is required for the patient to complete the activity. If activity was not attempted, code reason: 7-Patient Refused. 9-Not Applicable-not attempted and the patient did not perform the activity before the current illness, exacerbation or injury. 10-Not Attempted due to Environmental Limitations-(lack of equipment, weather restraints, etc.). 88-Not Attempted due to Medical Conditions or Safety Concerns. Eating (QC): 6 Oral Hygiene (QC): 6 (per clinical judgment while seated.) Bathing Location: L Arm, R Arm, L Upper Leg, R Upper Leg, Chest, Abdomen, Buttocks, Perineal Area Shower/Bathe Self (QC): 3 (min A LB/ feet due to ROM/ increased pain in abdomen. ) Upper Body Dressing (QC): 3 (min A) Lower Body Dressing (QC): 4 (threads with SBA, increased time) On/Off Footwear: 1 (TD, states does not complete and did not prior due to pain in abdomen.) Toileting Hygiene (QC): 4 (CGA-SBA, increased time per clinical judgment.) Toilet Transfer (QC): 4 (CGA during transfer per clinical judgment. Pt does not request bathroom during this session.) Other Treatment Pt bed mob with increased time. Sits EOB to complete sponge bath. Pt requires increased time for all tasks, completes as outlined above. Educated on hand placement/ safety. Pt sit to stand with SBA and ambulates to chair CGA. Sits with LEs elevated, all needs met, call light in reach. Pt to d/c thursday per report. Education OT Patient Education: Correct positioning, Modified ADL techniques, Progress toward Goal/Update tx plan, Purpose of tx/functional activities, Safety issues, Transfer techniques Teaching Recipient: Patient Teaching Methods: Demonstration, Discussion Response to Teaching: Verbalize Understanding, Return Demonstration OT Short Term Goals Short Term Goals Time Frame: January 15, 2021 Eatin Oral hygiene: 5 Toileting hygiene: 4 Shower/bathe self: 4 Upper body dressin Lower body dressin Putting on/taking off footwear: 5 OT Residential Goals Residential Goals Time Frame: Jan 22, 2021 Eating (QC): 6 Oral Hygiene (QC): 6 Toileting Hygiene (QC): 6 Shower/Bathe Self (QC): 4 Upper Body Dressing (QC): 5 Lower Body Dressing (QC): 4 On/Off Footwear (QC): 5 Additional Goals: 1-Demonstrate ADL Tasks, 2-Verbalize Understanding, 3- ImproveStrength/[place]iolet[place] 1=Demonstrate adherence to instructed precautions during ADL tasks. 2=Patient will verbalize/demonstrate understanding of assistive devic es/modifications for ADL. 3=Patient will improve strength/tolerance for activity to enable patient to perform ADL's. OT Education/Plan Problem List/Assessment Assessment: Decreased Activ Tolerance, Decreased UE Strength, Dependent Transfers, Edema, Impaired Bed Mobility, Impaired Funct Balance, Impaired I ADL's, Impaired Self-Care Skills Discharge Recommendations Plan/Recommendations: Continue POC Therapy Discharge Recommendati: 24 Hour Supervision, Post Acute OT Treatment Plan/Plan of Care Treatment,Training & Education: Yes Patient would benefit from OT for education, treatment and training to promote independence in ADL's, mobility, safety and/or upper extremity function for ADL's. Plan of Care: ADL Retraining, Functional Mobility, UE Funct Exercise/Act Treatment Duration: Jan 22, 2021 Frequency: 5 times per week Estimated Hrs Per Day: .25 hour per day Agreement: Yes Rehab Potential: Good Time/GCodes Start Time: 09:35 Stop Time: 09:50 Total Time Billed (hr/min): 15 Billed Treatment Time 1, ADL (15) KANDY HAWKINS OTR January 12, 2021 10:03
--- NOTE | 2021-01-12 10:36 | Diagnostic Imaging Report ---
EXAMINATION: Abdominal radiographs, upright and supine views. DATE: January 12, 2021. CLINICAL INDICATION: 85-year-old female, abdominal pain. COMPARISON: January 11, 2021. COMMENTS: There is no identified free intraperitoneal air. There is a left-sided ureteral stent. There is a large volume stool in the left colon. There are dilated segments of colon measuring up to 11.2 cm in diameter in the right upper quadrant. There is an inferior vena cava filter. There is scoliosis and degenerative change of the spine. There are atherosclerotic calcifications. IMPRESSION: 1. Redemonstrated gas distention of the colon measuring up to 11.5 cm in diameter with large volume stool in the left colon. Dictated by: Dictated on workstation # [id number]
[2021-01-12] MEDS: DOCUSATE SODIUM 100 MG (COLACE) CAP PO SCH (10:47)
--- NOTE | 2021-01-12 11:14 | Diagnostic Imaging Report ---
PROCEDURE: US Gallbladder. TECHNIQUE: Multiple real-time grayscale images were obtained over the right upper quadrant in various projections. INDICATION: Abdominal pain COMPARISON: None FINDINGS: The head of the pancreas is unremarkable. The body and tail are obscured by bowel gas. Imaged portions of the aorta and IVC are unremarkable. The liver is normal in echogenicity. No focal hepatic lesions are identified. The liver contour appears mildly nodular. There is no biliary dilatation. The main portal vein is hepatopetal. The gallbladder wall is not thickened. Gallbladder is somewhat contracted. No stone is seen. The common bile duct measures 4 mm. Sonographic Duarte sign is reportedly positive. The right kidney measures 7.7 cm in length which is small. There is no hydronephrosis. A small amount of free fluid is present. IMPRESSION: 1. Sonographic Duarte sign is reportedly positive, but no other findings of cholecystitis or cholelithiasis are seen. 2. Nodular contour of the liver, concerning for cirrhosis. There is a small amount of ascites. No focal hepatic lesions are seen. 3. Atrophic right kidney. Dictated by: Dictated on workstation # [id number]
[2021-01-12] MEDS: fentaNYL INJ 100 MCG/2 ML AMP IVP PRN ×4 (16:30→21:17)
[2021-01-12] MEDS: PIPERACILLIN/TAZOBACTAM (BULK) 4.5 GM in NS (IVPB) 100 ML IV SCH (17:02)
[2021-01-12] MEDS: CALCIUM CARBONATE 500 MG (TUMS) TAB.CHEW PO PRN (17:07)
[2021-01-12] MEDS ORDERED: CALCIUM CARBONATE 500 MG (TUMS) TAB.CHEW PO PRN (17:15)
[2021-01-12 17:43] VITALS: BP 124/61
[2021-01-12 18:00] VITALS: BP 152/64
[2021-01-12] MEDS ORDERED: RT-ALBUTEROL/IPRATROPIUM 3 ML (DUONEB) VIAL INH PRN (18:00)
[2021-01-12] MEDS: polyethylene glycoL POWDER 17 GM (MIRALAX) PACK PO SCH (20:16)
[2021-01-12] MEDS: LATANOPROST 0.005% (XALATAN) OPHTH SOLN 2.5 ML OU SCH (21:53)
[2021-01-13] MEDS: PIPERACILLIN/TAZOBACTAM (BULK) 4.5 GM in NS (IVPB) 100 ML IV SCH ×4 (00:01→23:48)
[2021-01-13] MEDS: fentaNYL INJ 100 MCG/2 ML AMP IVP PRN ×4 (00:01→17:19)
[2021-01-13] MEDS: methylPREDNISolone 40 MG/ML (Solu-MEDROL) VIAL IV SCH ×3 (00:01→20:54)
[2021-01-13] MEDS: GABAPENTIN 100 MG (NEURONTIN) CAP PO SCH ×3 (05:30→20:53)
[2021-01-13] MEDS: LEVOTHYROXINE 75 MCG (LEVOTHROID) TABLET PO SCH (05:30)
[2021-01-13 05:33] VITALS: BP 142/72
[2021-01-13 06:16] LABS: BASOPHILS # (AUTO) 0.1 10^3/uL (0.0-0.1); BASOPHILS % (AUTO) 0 % (0-10); EOSINOPHILS % (AUTO) 0 % (0-10); HEMATOCRIT 43 % (35-52); HEMOGLOBIN 13.1 g/dL (11.5-16.0); LYMPHOCYTES # (AUTO) 0.3 10^3/uL (1.0-4.0); LYMPHOCYTES % (AUTO) 2 % (12-44); MEAN CORPUSCULAR HEMOGLOBIN 27 pg (25-34); MEAN CORPUSCULAR HGB CONC 30 g/dL (32-36); MEAN CORPUSCULAR VOLUME 89 fL (80-99); MEAN PLATELET VOLUME 8.9 fL (9.0-12.2); MONOCYTES # (AUTO) 0.5 10^3/uL (0.0-1.0); MONOCYTES % (AUTO) 3 % (0-12); NEUTROPHILS # (AUTO) 18.5 10^3/uL (1.8-7.8); NEUTROPHILS % (AUTO) 95 % (42-75); PLATELET COUNT 352 10^3/uL (130-400); WHITE BLOOD COUNT 19.6 10^3/uL (4.3-11.0)
[2021-01-13 06:36] LABS: ALANINE AMINOTRANSFERASE 17 U/L (0-55); ALBUMIN 3.1 GM/DL (3.2-4.5); ALKALINE PHOSPHATASE 44 U/L (40-136); BILIRUBIN,TOTAL 0.9 MG/DL (0.1-1.0); BUN/CREATININE RATIO 29; CALCIUM 8.8 MG/DL (8.5-10.1); CARBON DIOXIDE 37 MMOL/L (21-32); CHLORIDE 94 MMOL/L (98-107); CREATININE SERUM 0.77 MG/DL (0.60-1.30); GFR ESTIMATED > 60; GLUCOSE 127 MG/DL (70-105); POTASSIUM 4.3 MMOL/L (3.6-5.0); SODIUM 138 MMOL/L (135-145); TOTAL PROTEIN 6.3 GM/DL (6.4-8.2)
--- NOTE | 2021-01-13 06:37 | Progress Note - Hospitalist ---
Subjective HPI/CC On Admission Date Seen by Provider: January 13, 2021 Time Seen by Provider: 10:00 Subjective/Events-last exam Conferred with Dr Ortiz CT scheduled for tomorrow due to suspicion for diverticular absess Patient not feeling well 1 unit of FFP given for elevated INR even though she was not bleeding she is at high risk Review of Systems General: Fatigue, Malaise Gastrointestinal: Abdominal Pain Focused Exam Lactate Level 01/11/21 19:51: Lactic Acid Level 1.68 Objective Exam Vital Signs Vital Signs Date Time Temp Pulse Resp B/P (MAP) Pulse Ox O2 Delivery O2 Flow Rate FiO2 01/13/21 18:00 36.6 94 18 125/67 (86) 97 High Flow N/C 7.00 01/09/21 06:46 45 Capillary Refill : Less Than 3 Seconds General Appearance: No Apparent Distress, WD/WN, Chronically ill, Obese Respiratory: Lungs Clear Cardiovascular: Regular Rate, Rhythm, Irregularly Irregular Neurologic/Psychiatric: Alert, Oriented x3, Disoriented Results/Procedures Lab Laboratory Tests 01/13/21 06:09 Patient resulted labs reviewed. Assessment/Plan Assessment and Plan Assess & Plan/Chief Complaint Assessment: Acute respiratory failure AF long standing OAC Dementia Plan: Wean Vapotherm Monitor INR 01/10/21: Monitor O2 01/11/21: Supportive care Monitor INR 01/12/21: IV abx Steroids Monitor closely 01/13/21: Decrease IV steroids IV abx Monitor INR LEBRON MENA DO January 13, 2021 06:37
[2021-01-13 06:40] LABS: INR 5.4 (0.8-1.4); PROTHROMBIN TIME PATIENT 48.9 SEC (12.2-14.7)
[2021-01-13] MEDS ORDERED: NS IV 500 ML 500 ML IV SCH (06:45)
[2021-01-13 08:12] VITALS: BP 165/83
[2021-01-13 08:27] VITALS: BP 166/83
[2021-01-13] MEDS ORDERED: polyethylene glycoL POWDER 17 GM (MIRALAX) PACK PO SCH (09:00)
[2021-01-13] MEDS: KCL 20 MEQ TAB (K-DUR) PO SCH (09:30)
[2021-01-13] MEDS: polyethylene glycoL POWDER 17 GM (MIRALAX) PACK PO SCH ×2 (09:30→20:53)
[2021-01-13] MEDS: SIMvastatin 20 MG (ZOCOR) TAB PO SCH (09:30)
[2021-01-13] MEDS: PANTOPRAZOLE 40 MG (PROTONIX) TAB PO SCH (09:30)
[2021-01-13] MEDS: FUROSEMIDE 40 MG/4 ML INJ (LASIX) IVP SCH (09:30)
[2021-01-13] MEDS: DIGOXIN 0.125 MG (LANOXIN) TAB PO SCH (09:33)
--- NOTE | 2021-01-13 09:58 | Progress Note ---
Subjective Date Seen by a Provider: January 13, 2021 Time Seen by a Provider: 09:20 Subjective/Events-last exam Patient seen with Dr. Ortiz. Patient reports still having abdominal pain. Denies any fever or chills. Tolerating diet. No nausea or vomiting. Focused Exam Lactate Level 01/11/21 19:51: Lactic Acid Level 1.68 Objective Exam Vital Signs Date Time Temp Pulse Resp B/P (MAP) Pulse Ox O2 Delivery O2 Flow Rate FiO2 01/13/21 08:27 36.1 84 18 166/83 95 High Flow N/C 6.00 01/13/21 08:12 36.3 90 18 165/83 94 High Flow N/C 6.00 01/13/21 05:33 36.5 77 20 142/72 (95) 90 High Flow N/C 6.00 01/12/21 20:20 High Flow N/C 4.50 01/12/21 20:07 High Flow N/C 5.00 01/12/21 18:00 36.4 67 18 152/64 (93) 96 High Flow N/C 5.00 01/12/21 17:43 35.8 86 95 I & O 01/13/21 07:00 Intake Total 1790 ml Output Total 75 ml Balance 1715 ml Capillary Refill : Less Than 3 Seconds General Appearance: WD/WN, Mild Distress Neck: Normal Inspection, Supple Respiratory: No Accessory Muscle Use, No Respiratory Distress Cardiovascular: Regular Rate, Rhythm, No Edema Gastrointestinal: normal bowel sounds, soft, distended, tenderness (LLQ) Extremity: Normal Inspection, Normal Range of Motion Neurologic/Psychiatric: Alert, Oriented x3 Skin: Normal Color, Warm/Dry Results Lab Laboratory Tests 01/13/21 06:09: White Blood Count 19.6H, Red Blood Count 4.82, Hemoglobin 13.1, Hematocrit 43, Mean Corpuscular Volume 89, Mean Corpuscular Hemoglobin 27, Mean Corpuscular Hemoglobin Concent 30L, Red Cell Distribution Width 17.8H, Platelet Count 352, Mean Platelet Volume 8.9L, Immature Granulocyte % (Auto) 1, Neutrophils (%) (Auto) 95H, Lymphocytes (%) (Auto) 2L, Monocytes (%) (Auto) 3, Eosinophils (%) (Auto) 0, Basophils (%) (Auto) 0, Neutrophils # (Auto) 18.5H, Lymphocytes # (Auto) 0.3L, Monocytes # (Auto) 0.5, Eosinophils # (Auto) 0.0, Basophils # (Auto) 0.1, Immature Granulocyte # (Auto) 0.2H, Prothrombin Time 48.9*H, INR Comment 5.4*H, Sodium Level 138, Potassium Level 4.3, Chloride Level 94L, Carbon Dioxide Level 37H, Anion Gap 7, Blood Urea Nitrogen 22H, Creatinine 0.77, Estimat Glomerular Filtration Rate > 60, BUN/Creatinine Ratio 29, Glucose Level 127H, Calcium Level 8.8, Corrected Calcium 9.5, Total Bilirubin 0.9, Aspartate Amino Transf (AST/SGOT) 13, Alanine Aminotransferase (ALT/SGPT) 17, Alkaline Phosphatase 44, Total Protein 6.3L, Albumin 3.1L Assessment/Plan Assessment/Plan Assess & Plan/Chief Complaint An 85 year old female with abdominal pain, sigmoid diverticulitis, 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
[2021-01-13 11:03] VITALS: BP 165/82
[2021-01-13] MEDS: HYDROcodone/APAP 7.5 MG/325 MG (LORTAB, LORCET PLUS) TABLET PO PRN ×2 (15:39→20:53)
[2021-01-13 18:00] VITALS: BP 125/67
[2021-01-13] MEDS: LATANOPROST 0.005% (XALATAN) OPHTH SOLN 2.5 ML OU SCH ×2 (20:54→23:49)
[2021-01-14] MEDS: fentaNYL INJ 100 MCG/2 ML AMP IVP PRN (04:18)
[2021-01-14 06:00] LABS: BASOPHILS # (AUTO) 0.1 10^3/uL (0.0-0.1); BASOPHILS % (AUTO) 0 % (0-10); EOSINOPHILS % (AUTO) 0 % (0-10); HEMATOCRIT 42 % (35-52); HEMOGLOBIN 12.3 g/dL (11.5-16.0); LYMPHOCYTES # (AUTO) 0.3 10^3/uL (1.0-4.0); LYMPHOCYTES % (AUTO) 2 % (12-44); MEAN CORPUSCULAR HEMOGLOBIN 27 pg (25-34); MEAN CORPUSCULAR HGB CONC 30 g/dL (32-36); MEAN CORPUSCULAR VOLUME 91 fL (80-99); MEAN PLATELET VOLUME 10.3 fL (9.0-12.2); MONOCYTES # (AUTO) 0.7 10^3/uL (0.0-1.0); MONOCYTES % (AUTO) 5 % (0-12); NEUTROPHILS # (AUTO) 14.9 10^3/uL (1.8-7.8); NEUTROPHILS % (AUTO) 93 % (42-75); PLATELET COUNT 273 10^3/uL (130-400)
[2021-01-14 06:03] VITALS: BP 111/60
[2021-01-14] MEDS: GABAPENTIN 100 MG (NEURONTIN) CAP PO SCH ×3 (06:04→20:16)
[2021-01-14] MEDS: LEVOTHYROXINE 75 MCG (LEVOTHROID) TABLET PO SCH (06:04)
[2021-01-14 06:23] LABS: ALBUMIN 2.7 GM/DL (3.2-4.5); BILIRUBIN,TOTAL 0.9 MG/DL (0.1-1.0); CALCIUM 8.5 MG/DL (8.5-10.1); CREATININE SERUM 1.11 MG/DL (0.60-1.30); POTASSIUM 3.6 MMOL/L (3.6-5.0); TOTAL PROTEIN 5.7 GM/DL (6.4-8.2)
[2021-01-14 06:31] LABS: PROTHROMBIN TIME PATIENT 53.2 SEC (12.2-14.7)
[2021-01-14] MEDS ORDERED: NS IV 500 ML 500 ML IV SCH (06:45)
[2021-01-14] MEDS ORDERED: VITAMIN K 1 MG/ML ORAL SOLN 1 ML SYRINGE PO ONE (06:45)
[2021-01-14] MEDS ORDERED: CATHETER FLUSH 10 ML SYR IV PRN (08:15)
[2021-01-14] MEDS ORDERED: NS 100 ML (IVPB) BAG IV ONE (08:15)
[2021-01-14] MEDS ORDERED: IOHEXOL 350 MG/ML 100 ML (OMNIPAQUE 350) VIAL IV ONE (08:15)
[2021-01-14] MEDS ORDERED: HOLD METFORMIN - RECEIVED CONTRAST 20 ML VIAL IV SCH (08:15)
[2021-01-14] MEDS: FUROSEMIDE 40 MG/4 ML INJ (LASIX) IVP SCH ×2 (08:58→09:55)
[2021-01-14] MEDS: methylPREDNISolone 40 MG/ML (Solu-MEDROL) VIAL IV SCH ×2 (08:58→20:17)
[2021-01-14 10:01] VITALS: BP 126/75
--- NOTE | 2021-01-14 10:08 | Diagnostic Imaging Report ---
PROCEDURE: CT abdomen and pelvis with contrast. TECHNIQUE: Multiple contiguous axial images were obtained through the abdomen and pelvis after administration of intravenous contrast. Auto Exposure Controls were utilized during the CT exam to meet ALARA standards for radiation dose reduction. All CT scans use one or more of the following dose optimizing techniques: automated exposure control, MA and/or KvP adjustment based on patient size and exam type or iterative reconstruction. INDICATION: Lower abdominal pain. Correlation is made with prior CT from 01/03/2021. There is linear atelectasis in both lower lobes. The heart is enlarged. Since prior CT patient has developed a large pneumoperitoneum, most consistent with a perforated hollow viscus. In addition, there has been significant interval distention of the colon which contains fluid and gas. The cecum is dilated. The ascending and transverse colon as well as descending colon are dilated. There appears to be normal caliber sigmoid colon which contains multiple diverticuli. No definite mass or evidence of diverticulitis is seen. There is some perihepatic and perisplenic free fluid. There is some free fluid in the central abdomen as well but no loculated fluid collection is detected. There is decrease in amount of fluid in the pelvis when compared with prior CT. The liver and gallbladder are unremarkable. Pancreas and spleen are unremarkable. No adrenal mass is detected. A left kidney does contain a nephroureteral stent. Right kidney is unremarkable. Aorta is calcified but nonaneurysmal. There is an IVC filter in place. Bladder is decompressed. IMPRESSION: 1. Development of large pneumoperitoneum consistent with a perforation of hollow viscus. Exact location of the perforation is difficult to ascertain on this study. Patient has developed fluid-filled distention of the colon, as described. In addition there is some free fluid throughout the abdomen but no loculated fluid collection or abscess is detected. Results were discussed with Dr. Ortiz prior to this dictation. Dictated by: Dictated on workstation # [id number]
[2021-01-14 10:16] VITALS: BP 120/72
[2021-01-14] MEDS: SIMvastatin 20 MG (ZOCOR) TAB PO SCH (10:35)
[2021-01-14] MEDS: PANTOPRAZOLE 40 MG (PROTONIX) TAB PO SCH (10:35)
[2021-01-14] MEDS: DIGOXIN 0.125 MG (LANOXIN) TAB PO SCH (10:35)
[2021-01-14] MEDS: KCL 20 MEQ TAB (K-DUR) PO SCH (10:36)
[2021-01-14] MEDS: DOCUSATE SODIUM 100 MG (COLACE) CAP PO SCH (10:36)
[2021-01-14] MEDS: polyethylene glycoL POWDER 17 GM (MIRALAX) PACK PO SCH ×2 (10:36→20:16)
--- NOTE | 2021-01-14 11:53 | Physical Therapy Daily Note ---
PT Daily Note-Current Subjective Patient is in recliner with family present. Requested toilet use. (incontinent urine) Mental Status Patient Orientation: Person, Time, Situation Attachments: Oxygen, IV Transfers SCALE: Activities may be completed with or without assistive devices. 7-Jebatgmcsy-egutngh completes the activity by him/herself with no assistance from a helper. 5-Set-up or Clean-up Assistance-helper sets up or cleans up; patient completes activity. [place] assists only prior to or following the activity. 4-Supervision or Touching Assistance-helper provides verbal cues and/or touching/steadying and/or contact guard assistance as patient completes activity. Assistance may be provided throughout the activity or intermittently. 3-Partial/Moderate Assistance-helper does LESS THAN HALF the effort. [place] lifts, holds or supports trunk or limbs, but provides less than half the effort. 2-Substantial/Maximal Assistance-helper does MORE THAN HALF the effort. [place] lifts or holds trunk or limbs and provides more than half the effort. 9-Jsyzfnkpx-pqcbaz does ALL the effort. Patient does none of the effort to complete the activity. Or, the assistance of 2 or more helpers is required for the patient to complete the activity. If activity was not attempted, code reason: 7-Patient Refused. 9-Not Applicable-not attempted and the patient did not perform the activity before the current illness, exacerbation or injury. 10-Not Attempted due to Environmental Limitations-(lack of equipment, weather restraints, etc.). 88-Not Attempted due to Medical Conditions or Safety Concerns. Sit to Stand (QC): 3 Toilet Transfer (QC): 3 Patient required dependent assist to cleanse and change depends Gait Training Does the Patient Walk?: Yes Distance: 15' x 2 Walk 10 feet (QC): 4 Gait Assistive Device: FWW very slow gait sequence Assessment Patient requires time to complete all functional tasks. Noted decrease in status (medically and physically). PT Solo Truck Driver Goals Solo Truck Driver Goals PT Solo Truck Driver Goals Time Frame: Feb 02, 2021 Roll Left & Right (QC): 6 Sit to Lying (QC): 6 Lying-Sitting on Side/Bed(QC): 6 Sit to Stand (QC): 6 Chair/Bru-md-Osbms Xfer(QC): 6 Toilet Transfer (QC): 6 Car Transfer (QC): 6 (simulated) Does the Patient Walk: Yes Walk 10 feet (QC): 6 Walk 50ft with 2 Turns (QC): 6 Walk 150 ft (QC): 6 Walking 10ft on Uneven Surface: 6 1 Step (curb) (QC): 9 4 Steps (QC): 9 12 Steps (QC): 9 Picking up an Object (QC): 6 (seated) Wheel 50 feet with 2 turns (QC: 88 Type: Manual Wheel 150 feet: 88 Type: Manual PT Plan Treatment/Plan Treatment Plan: Continue Plan of Care Treatment Plan: Bed Mobility, Education, Functional Activity [place], Functional Strength, Gait, Safety, Therapeutic Exercise, Transfers Treatment Duration: Feb 02, 2021 Frequency: 6 times per week Estimated Hrs Per Day: .25 hour per day Patient and/or Family Agrees t: Yes Time/GCodes Time In: 1116 Time Out: 1145 Total Billed Treatment Time: 29 Total Billed Treatment 1 visit FA x 2 29 min EFRAIN CHERY PT January 14, 2021 11:52
[2021-01-14 13:05] VITALS: BP 120/67
[2021-01-14] MEDS: PIPERACILLIN/TAZOBACTAM (BULK) 4.5 GM in NS (IVPB) 100 ML IV SCH ×2 (13:09→17:18)
--- NOTE | 2021-01-14 14:40 | Occ Therapy Progress Note ---
Therapy Progress Note Pt. up in chair. Family in room. Pt. declines treatment at this time. States that she does not feel well, and does not feel good. All needs met. 1, visit 1415 Declined treatment at this time. IVANIA LLANOS OT January 14, 2021 14:40
--- NOTE | 2021-01-14 15:35 | Progress Note ---
Subjective Subjective/Events-last exam Pt states she was doing okay with her abdominal pain for a time at first this morning, but it is worse again now. Focused Exam Lactate Level 01/11/21 19:51: Lactic Acid Level 1.68 Objective Exam Last Set of Vital Signs Vital Signs Date Time Temp Pulse Resp B/P (MAP) Pulse Ox O2 Delivery O2 Flow Rate FiO2 01/14/21 14:59 92 High Flow N/C 6.00 01/14/21 13:05 37.1 86 18 120/67 01/09/21 06:46 45 Capillary Refill : Less Than 3 Seconds I&O Intake and Output 01/14/21 00:00 Intake Total 1370 ml Output Total 75 ml Balance 1295 ml Intake Oral 1250 ml IV Total 120 ml Output Urine Total 75 ml # Voids 4 General: Alert, Oriented X3, No Acute Distress Lungs: Clear to Auscultation Heart: Regular Rate Abdomen: Other (distended, diffusely tender, hypoactive bowel sounds) Psych/Mental Status: Mental Status NL, Mood NL Results/Procedures Lab Laboratory Tests 01/14/21 05:30: White Blood Count 16.0H, Red Blood Count 4.57, Hemoglobin 12.3, Hematocrit 42, Mean Corpuscular Volume 91, Mean Corpuscular Hemoglobin 27, Mean Corpuscular Hemoglobin Concent 30L, Red Cell Distribution Width 17.6H, Platelet Count 273, Mean Platelet Volume 10.3, Immature Granulocyte % (Auto) 1, Neutrophils (%) (Auto) 93H, Lymphocytes (%) (Auto) 2L, Monocytes (%) (Auto) 5, Eosinophils (%) (Auto) 0, Basophils (%) (Auto) 0, Neutrophils # (Auto) 14.9H, Lymphocytes # (Auto) 0.3L, Monocytes # (Auto) 0.7, Eosinophils # (Auto) 0.0, Basophils # (Auto) 0.1, Immature Granulocyte # (Auto) 0.1, Prothrombin Time 53.2*H, INR Co mment 6.0*H, Sodium Level 137, Potassium Level 3.6, Chloride Level 94L, Carbon Dioxide Level 33H, Anion Gap 10, Blood Urea Nitrogen 34H, Creatinine 1.11, Estimat Glomerular Filtration Rate 47, BUN/Creatinine Ratio 31, Glucose Level 141H, Calcium Level 8.5, Corrected Calcium 9.5, Total Bilirubin 0.9, Aspartate Amino Transf (AST/SGOT) 21, Alanine Aminotransferase (ALT/SGPT) 17, Alkaline Phosphatase 34L, Total Protein 5.7L, Albumin 2.7L, Procalcitonin 2.32H 01/14/21 12:57: Lab Scanned Report Transfusion Reaction Form Assessment/Plan Assessment/Plan (1) Peritoneal free air Status: Acute Assessment & Plan: Worsening abdominal pain with known diverticulitis from inpatient CT, repeat CT today showed diffuse peritoneal air with unclear source, suspect perforated diverticula. Discussed with Dr. Ortiz, he does not feel ex lap would be tolerated with her underlying comorbidities and hypoxia, and she and family also agree they would not want this type of surgery. Considering drain placement. Continue Zosyn, management per Dr. Ortiz. (2) Acute on chronic respiratory failure with hypoxia and hypercapnia Status: Acute Assessment & Plan: Near baseline now on 6 lpm supplemental oxygen, was requiring more significant support while inpatient, now on SWB. (3) UTI (urinary tract infection) Status: Acute Assessment & Plan: Originally admitted with sepsis secondary to UTI, now on swing bed status, is being treated still with Zosyn. Urine cx with citrobacter and enterococcus faecalis. (4) Congestive heart failure Status: Chronic Assessment & Plan: On daily IV lasix currently. Qualifiers: Qualified Codes: I50.32 - Chronic diastolic (congestive) heart failure (5) Hypoxemic respiratory failure, chronic Status: Chronic Assessment & Plan: Typically on 4-6 lpm supplemental oxygen (6) Atrial fibrillation Status: Chronic Assessment & Plan: On coumadin, currently on hold due to supratherapeutic INR. (7) Normocytic anemia Status: Chronic (8) Abdominal pain Status: Acute (9) Diverticulitis Status: Acute Assessment & Plan: On Zosyn, see CT results above. (10) Rheumatoid arthritis Status: Chronic (11) Pulmonary hypertension Status: Chronic (12) Hypertension Status: Chronic Qualifiers: Qualified Codes: I10 - Essential (primary) hypertension (13) DVT prophylaxis Status: Acute Assessment & Plan: On coumadin for a fib, but INR is supratherapeutic, coumadin held and FFP x 2 given as well as PO vitamin K on 01/14. VONDA PROCTOR MD January 14, 2021 15:35
--- NOTE | 2021-01-14 16:33 | Progress Note - Cardiology ---
Cardiology SOAP Progress Note Subjective: Gen weakness and malaise Feeling of abd bloating and distention No n/v/d No cp or palp or syncope Shortness of breath with mild activity Objective: I&O/Vital Signs 01/14/21 01/14/21 01/14/21 01/14/21 06:03 09:00 10:01 10:16 Temp 36.1 36.7 36.5 Pulse 87 123 95 Resp 18 20 18 B/P (MAP) 111/60 (77) 126/75 120/72 Pulse Ox 94 94 99 94 O2 Delivery High Flow N/C High Flow N/C High Flow N/C High Flow N/C O2 Flow Rate 6.00 6.00 6.00 6.00 01/14/21 01/14/21 13:05 14:59 Temp 37.1 Pulse 86 Resp 18 B/P (MAP) 120/67 Pulse Ox 92 O2 Delivery High Flow N/C High Flow N/C O2 Flow Rate 6.00 6.00 01/14/21 00:00 Intake Total 1100 ml Balance 1100 ml Constitutional: AAO x 3, well-developed, well-nourished, other (appear weak and tired) Respiratory: No accessory muscle use; other (fair to good air entry, reduced at the bases) Cardiovascular: irregularly irregular, S1 and S2, systolic murmur (soft NOAH at card base) Gastrointestional: tender, distended; No guarding, No rebound; audible bowel sounds Extremities: pedal edema (mild, bilateral); No clubbing, No cyanosis Neurologic/Psychiatric: oriented x 3, other (moves all limbs equally) Skin: warm/dry; No cyanosis, No rash on exposed areas, No ulcerations on exposed areas Results/Procedures: Labs Laboratory Tests 01/14/21 05:30: White Blood Count 16.0H, Red Blood Count 4.57, Hemoglobin 12.3, Hematocrit 42, Mean Corpuscular Volume 91, Mean Corpuscular Hemoglobin 27, Mean Corpuscular Hemoglobin Concent 30L, Red Cell Distribution Width 17.6H, Platelet Count 273, Mean Platelet Volume 10.3, Immature Granulocyte % (Auto) 1, Neutrophils (%) (Auto) 93H, Lymphocytes (%) (Auto) 2L, Monocytes (%) (Auto) 5, Eosinophils (%) (Auto) 0, Basophils (%) (Auto) 0, Neutrophils # (Auto) 14.9H, Lymphocytes # (Auto) 0.3L, Monocytes # (Auto) 0.7, Eosinophils # (Auto) 0.0, Basophils # (Auto) 0.1, Immature Granulocyte # (Auto) 0.1, Prothrombin Time 53.2*H, INR Comment 6.0*H, Sodium Level 137, Potassium Level 3.6, Chloride Level 94L, Carbon Dioxide Level 33H, Anion Gap 10, Blood Urea Nitrogen 34H, Creatinine 1.11, Estimat Glomerular Filtration Rate 47, BUN/Creatinine Ratio 31, Glucose Level 141H, Calcium Level 8.5, Corrected Calcium 9.5, Total Bilirubin 0.9, Aspartate Amino Transf (AST/SGOT) 21, Alanine Aminotransferase (ALT/SGPT) 17, Alkaline Phosphatase 34L, Total Protein 5.7L, Albumin 2.7L, Procalcitonin 2.32H 01/14/21 12:57: Lab Scanned Report Transfusion Reaction Form Laboratory Tests 01/13/21 06:09 01/14/21 05:30 A/P: Assessment: Large pneumoperitoneum consistent with a perforation of hollow viscus (on CT abdomen on 01/14/21). Acute Respiratory failure in December 2020, likely multifactorial d/t acute on chronic exacerbation of COPD and iffyh-[id number] diastolic CHF - Echo by Dr. Crook on 01-04-21- shows LVEF 55-65%. Reduced RV systolic function with increased systolic pressure. LA and RA severely dilated. PASP 70-75 mmHg. TR. Chronic AF - rate controlled Chronic OAC with coumadin - currently supra-therapeutinc INR H/o IVC filter (noted on CT of the abdomen of 01-03-21) Plan: * Multiple symptoms, multisystem involvement, complex management, guarded prognosis * Hold warfarin * Cardiac risk for non-cardiac surgery is estimated to be intermediate to high. I discussed this in detail with the patient and her family, and answered questions in detail. They understand * Monitor labs closely CHERELLE ABAD MD [facility] January 14, 2021 16:33
--- NOTE | 2021-01-14 17:39 | Progress Note ---
Subjective Date Seen by a Provider: January 14, 2021 Time Seen by a Provider: 16:50 Subjective/Events-last exam Patient seen with Dr. Ortiz. Daughter at bedside. Patient sitting in bedside chair and denies any abdominal pain as well as no nausea or vomiting. It was explained to patient and daughter about CT scan findings and the need for placement of a paracentesis drain placement to help relieve the air in the abdomen. Focused Exam Lactate Level 01/11/21 19:51: Lactic Acid Level 1.68 Objective Exam Vital Signs Date Time Temp Pulse Resp B/P (MAP) Pulse Ox O2 Delivery O2 Flow Rate FiO2 01/14/21 14:59 92 High Flow N/C 6.00 01/14/21 13:05 37.1 86 18 120/67 High Flow N/C 6.00 01/14/21 10:16 36.5 95 18 120/72 94 High Flow N/C 6.00 01/14/21 10:01 36.7 123 20 126/75 99 High Flow N/C 6.00 01/14/21 09:00 94 High Flow N/C 6.00 01/14/21 06:03 36.1 87 18 111/60 (77) 94 High Flow N/C 6.00 01/13/21 20:50 High Flow N/C 6.00 01/13/21 18:00 36.6 94 18 125/67 (86) 97 High Flow N/C 7.00 I & O 01/14/21 07:00 Intake Total 1100 ml Balance 1100 ml Capillary Refill : Less Than 3 Seconds General Appearance: No Apparent Distress, WD/WN Neck: Normal Inspection, Supple Respiratory: No Accessory Muscle Use, No Respiratory Distress Cardiovascular: Regular Rate, Rhythm, No Edema Gastrointestinal: distended, tenderness Extremity: Normal Inspection, Normal Range of Motion Neurologic/Psychiatric: Alert, Oriented x3 Skin: Normal Color, Warm/Dry Results Lab Laboratory Tests 01/14/21 05:30: White Blood Count 16.0H, Red Blood Count 4.57, Hemoglobin 12.3, Hematocrit 42, Mean Corpuscular Volume 91, Mean Corpuscular Hemoglobin 27, Mean Corpuscular Hemoglobin Concent 30L, Red Cell Distribution Width 17.6H, Platelet Count 273, Mean Platelet Volume 10.3, Immature Granulocyte % (Auto) 1, Neutrophils (%) (Auto) 93H, Lymphocytes (%) (Auto) 2L, Monocytes (%) (Auto) 5, Eosinophils (%) (Auto) 0, Basophils (%) (Auto) 0, Neutrophils # (Auto) 14.9H, Lymphocytes # (Auto) 0.3L, Monocytes # (Auto) 0.7, Eosinophils # (Auto) 0.0, Basophils # (Auto) 0.1, Immature Granulocyte # (Auto) 0.1, Prothrombin Time 53.2*H, INR Comment 6.0*H, Sodium Level 137, Potassium Level 3.6, Chloride Level 94L, Carbon Dioxide Level 33H, Anion Gap 10, Blood Urea Nitrogen 34H, Creatinine 1.11, Estimat Glomerular Filtration Rate 47, BUN/Creatinine Ratio 31, Glucose Level 141H, Calcium Level 8.5, Corrected Calcium 9.5, Total Bilirubin 0.9, Aspartate Amino Transf (AST/SGOT) 21, Alanine Aminotransferase (ALT/SGPT) 17, Alkaline Phosphatase 34L, Total Protein 5.7L, Albumin 2.7L, Procalcitonin 2.32H 01/14/21 12:57: Lab Scanned Report Transfusion Reaction Form Assessment/Plan Assessment/Plan Assess & Plan/Chief Complaint An 85 year old female with abdominal pain, sigmoid diverticulitis with perforation, 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
[2021-01-14] MEDS: NYSTATIN ORAL SUSP 5 ML UDC PO SCH (18:11)
[2021-01-14 18:33] LABS: INR 2.2 (0.8-1.4); PROTHROMBIN TIME PATIENT 24.9 SEC (12.2-14.7)
[2021-01-14] MEDS: HYDROcodone/APAP 7.5 MG/325 MG (LORTAB, LORCET PLUS) TABLET PO PRN (19:22)
[2021-01-14] MEDS: LATANOPROST 0.005% (XALATAN) OPHTH SOLN 2.5 ML OU SCH (21:19)
[2021-01-15] MEDS: NYSTATIN ORAL SUSP 5 ML UDC PO SCH ×4 (00:48→17:30)
[2021-01-15] MEDS: PIPERACILLIN/TAZOBACTAM (BULK) 4.5 GM in NS (IVPB) 100 ML IV SCH ×3 (00:48→15:29)
[2021-01-15 06:01] LABS: BASOPHILS % (AUTO) 0 % (0-10); EOSINOPHILS % (AUTO) 0 % (0-10); HEMATOCRIT 34 % (35-52); HEMOGLOBIN 10.2 g/dL (11.5-16.0); LYMPHOCYTES # (AUTO) 0.2 10^3/uL (1.0-4.0); LYMPHOCYTES % (AUTO) 2 % (12-44); MEAN CORPUSCULAR HEMOGLOBIN 27 pg (25-34); MEAN CORPUSCULAR HGB CONC 30 g/dL (32-36); MEAN CORPUSCULAR VOLUME 90 fL (80-99); MEAN PLATELET VOLUME 9.3 fL (9.0-12.2); MONOCYTES # (AUTO) 0.7 10^3/uL (0.0-1.0); MONOCYTES % (AUTO) 6 % (0-12); NEUTROPHILS % (AUTO) 91 % (42-75); PLATELET COUNT 231 10^3/uL (130-400)
[2021-01-15 06:11] LABS: INR 1.7 (0.8-1.4); PROTHROMBIN TIME PATIENT 20.4 SEC (12.2-14.7)
[2021-01-15 06:13] LABS: ALBUMIN 2.7 GM/DL (3.2-4.5)
[2021-01-15 06:14] LABS: POTASSIUM 3.6 MMOL/L (3.6-5.0)
[2021-01-15 06:15] LABS: CALCIUM 8.6 MG/DL (8.5-10.1)
[2021-01-15 06:16] LABS: TOTAL PROTEIN 5.7 GM/DL (6.4-8.2)
[2021-01-15 06:18] LABS: BILIRUBIN,TOTAL 0.7 MG/DL (0.1-1.0)
[2021-01-15 06:20] LABS: CREATININE SERUM 0.9 MG/DL (0.60-1.30)
[2021-01-15] MEDS: LEVOTHYROXINE 75 MCG (LEVOTHROID) TABLET PO SCH (06:29)
[2021-01-15] MEDS: GABAPENTIN 100 MG (NEURONTIN) CAP PO SCH ×3 (06:29→19:55)
[2021-01-15 06:36] VITALS: BP 128/77
[2021-01-15] MEDS: fentaNYL INJ 100 MCG/2 ML AMP IVP PRN (08:16)
[2021-01-15] MEDS: SIMvastatin 20 MG (ZOCOR) TAB PO SCH (08:18)
[2021-01-15] MEDS: methylPREDNISolone 40 MG/ML (Solu-MEDROL) VIAL IV SCH ×2 (08:19→19:55)
[2021-01-15] MEDS: DIGOXIN 0.125 MG (LANOXIN) TAB PO SCH (08:19)
[2021-01-15] MEDS: FUROSEMIDE 40 MG/4 ML INJ (LASIX) IVP SCH (08:19)
[2021-01-15] MEDS: polyethylene glycoL POWDER 17 GM (MIRALAX) PACK PO SCH ×2 (08:19→19:55)
[2021-01-15] MEDS: KCL 20 MEQ TAB (K-DUR) PO SCH (08:19)
[2021-01-15] MEDS: PANTOPRAZOLE 40 MG (PROTONIX) TAB PO SCH (08:19)
--- NOTE | 2021-01-15 09:37 | Physical Therapy Progress Note ---
Therapy Progress Note PT attempted to see and visit with patient, however, patient is very lethargic and unable to actively participate with skilled therapy on this date. RN notified and agrees. SWJorge also notified. Will attempt in a.m. 1 visit ([phone]) EFRAIN CHERY PT January 15, 2021 09:37
--- NOTE | 2021-01-15 09:53 | Progress Note - Cardiology ---
Cardiology SOAP Progress Note Subjective: Sitting up in bed States she is feeling tired C/O abdominal pain, but states it is better than yesterday Objective: I&O/Vital Signs 01/15/21 01/16/21 20:41 06:08 Temp 36.6 Pulse 75 Resp 18 B/P (MAP) 135/83 (100) Pulse Ox 92 93 O2 Delivery High Flow N/C High Flow N/C O2 Flow Rate 4.00 6.00 01/16/21 00:00 Intake Total 460 ml Output Total 90 ml Balance 370 ml Constitutional: AAO x 3, well-developed, well-nourished, other (appear weak and tired) Respiratory: No accessory muscle use; other (fair to good air entry, reduced at the bases) Cardiovascular: irregularly irregular, S1 and S2, systolic murmur (soft NOAH at card base) Gastrointestional: tender, distended; No guarding, No rebound; audible bowel sounds, other (drain in place) Extremities: pedal edema (mild, bilateral); No clubbing, No cyanosis Neurologic/Psychiatric: oriented x 3, other (moves all limbs equally) Skin: warm/dry; No cyanosis, No rash on exposed areas, No ulcerations on exposed areas Results/Procedures: Labs Laboratory Tests 01/16/21 05:02: White Blood Count 9.6, Red Blood Count 3.94, Hemoglobin 10.6L, Hematocrit 36, Mean Corpuscular Volume 91, Mean Corpuscular Hemoglobin 27, Mean Corpuscular Hemoglobin Concent 30L, Red Cell Distribution Width 17.6H, Platelet Count 227, Mean Platelet Volume 9.7, Sodium Level 137, Potassium Level 4.2, Chloride Level 94L, Carbon Dioxide Level 33H, Anion Gap 10, Blood Urea Nitrogen 31H, Creatinine 0.77, Estimat Glomerular Filtration Rate > 60, BUN/Creatinine Ratio 40, Glucose Level 143H, Calcium Level 8.9 A/P: Assessment: Large pneumoperitoneum consistent with a perforation of hollow viscus (on CT abdomen on 01/14/21). - s/p paracentesis drain on 01-14-21 by surgical services Acute Respiratory failure in December 2020, likely multifactorial d/t acute on chronic exacerbation of COPD and bgypi-iz-nokxapi diastolic CHF - Echo by Dr. Crook on 01-04-21- shows LVEF 55-65%. Reduced RV systolic function with increased systolic pressure. LA and RA severely dilated. PASP 70-75 mmHg. TR. Chronic AF - rate controlled Chronic OAC with coumadin - currently supra-therapeutinc INR - received FFP - INR now sub-therapeutic H/o IVC filter (noted on CT of the abdomen of 01-03-21) Plan: * Multiple symptoms, multisystem involvement, complex management, guarded prognosis * Warfarin currently being held - advise Lovenox if ok with surgical services for stroke prophylaxis until INR is therapeutic * Cardiac risk for non-cardiac surgery is estimated to be intermediate to high. I discussed this in detail with the patient and her family, and answered questions in detail. They understand * Monitor labs closely * S/P paracentesis drain per surgical services * Pt and family desire conservative tx only and do not wish to have any surgical procedures MILA CANNON January 15, 2021 09:52
--- NOTE | 2021-01-15 12:45 | Progress Note ---
Subjective Subjective/Events-last exam Afebrile, states the drain placement did help pain some, but she is still very bloated and having a lot of pain. Hasn't had BM in 3 days per her report. Still reiterates she does not want to have surgery. Objective Exam Last Set of Vital Signs Vital Signs Date Time Temp Pulse Resp B/P (MAP) Pulse Ox O2 Delivery O2 Flow Rate FiO2 01/15/21 08:55 94 High Flow N/C 4.00 01/15/21 06:36 36.5 72 18 128/77 (94) 01/09/21 06:46 45 Capillary Refill : Less Than 3 Seconds I&O Intake and Output 01/15/21 00:00 Intake Total 1190 ml Balance 1190 ml Intake Oral 1040 ml IV Total 150 ml # Voids 7 General: Alert, Mild Distress Lungs: Clear to Auscultation, Normal Air Movement Heart: Other (irregular) Abdomen: Other (distended, diffusely markedly ttp) Extremities: Other (trace edema) Neuro: Normal Speech Psych/Mental Status: Mood NL Results/Procedures Lab Laboratory Tests 01/14/21 12:57: Lab Scanned Report Transfusion Reaction Form 01/14/21 18:16: Prothrombin Time 24.9H, INR Comment 2.2H 01/15/21 05:21: Prothrombin Time 20.4H, INR Comment 1.7H, White Blood Count 12.0H, Red Blood Count 3.83, Hemoglobin 10.2L, Hematocrit 34L, Mean Corpuscular Volume 90, Mean Corpuscular Hemoglobin 27, Mean Corpuscular Hemoglobin Concent 30L, Red Cell Distribution Width 17.6H, Platelet Count 231, Mean Platelet Volume 9.3, Immature Granulocyte % (Auto) 1, Neutrophils (%) (Auto) 91H, Lymphocytes (%) (Auto) 2L, Monocytes (%) (Auto) 6, Eosinophils (%) (Auto) 0, Basophils (%) (Auto) 0, Neutrophils # (Auto) 11.0H, Lymphocytes # (Auto) 0.2L, Monocytes # (Auto) 0.7, Eosinophils # (Auto) 0.0, Basophils # (Auto) 0.0, Immature Granulocyte # (Auto) 0.1, Sodium Level 138, Potassium Level 3.6, Chloride Level 94L, Carbon Dioxide Level 35H, Anion Gap 9, Blood Urea Nitrogen 35H, Creatinine 0.90, Estimat Glomerular Filtration Rate 59, BUN/Creatinine Ratio 39, Glucose Level 160H, Calcium Level 8.6, Corrected Calcium 9.6, Total Bilirubin 0.7, Aspartate Amino Transf (AST/SGOT) 21, Alanine Aminotransferase (ALT/SGPT) 17, Alkaline Phosphatase 45, Total Protein 5.7L, Albumin 2.7L Assessment/Plan Assessment/Plan (1) Peritoneal free air Status: Acute Assessment & Plan: Worsening abdominal pain with known diverticulitis from inpatient CT, repeat CT today showed diffuse peritoneal air with unclear source, suspect perforated diverticula. Discussed with Dr. Ortiz, he does not feel ex lap would be tolerated with her underlying comorbidities and hypoxia, and she and family also agree they would not want this type of surgery. Considering drain placement. Continue Zosyn, management per Dr. Ortiz. 01/16 drain placed and patient reports some symptomatic improvement, but exam remains the same and pain persists. She still does not want surgery, we discussed if abdominal problems worsen, may need to discuss comfort goals at some point if surgery is not wanted or felt to be a viable option. (2) Acute on chronic respiratory failure with hypoxia and hypercapnia Status: Acute Assessment & Plan: Near baseline now on 6 lpm supplemental oxygen, was requiring more significant support while inpatient, now on SWB. 01/15 on baseline 4 lpm supplemental oxygen today (3) UTI (urinary tract infection) Status: Acute Assessment & Plan: Originally admitted with sepsis secondary to UTI, now on swing bed status, is being treated still with Zosyn. Urine cx with citrobacter and enterococcus faecalis. (4) Congestive heart failure Status: Chronic Assessment & Plan: On daily IV lasix currently. Qualifiers: Qualified Codes: I50.32 - Chronic diastolic (congestive) heart failure (5) Hypoxemic respiratory failure, chronic Status: Chronic Assessment & Plan: Typically on 4-6 lpm supplemental oxygen (6) Atrial fibrillation Status: Chronic Assessment & Plan: On coumadin, currently on hold due to supratherapeutic INR. 01/15 resume coumadin, INR down to 1.7 (7) Normocytic anemia Status: Chronic (8) Abdominal pain Status: Acute (9) Diverticulitis Status: Acute Assessment & Plan: On Zosyn, see CT results above. (10) Rheumatoid arthritis Status: Chronic (11) Pulmonary hypertension Status: Chronic (12) Hypertension Status: Chronic Qualifiers: Qualified Codes: I10 - Essential (primary) hypertension (13) DVT prophylaxis Status: Acute Assessment & Plan: On coumadin for a fib, but INR was supratherapeutic, coumadin held and FFP x 2 given as well as PO vitamin K on 01/14. 01/15 resuming coumadin VONDA PROCTOR MD January 15, 2021 12:45
--- NOTE | 2021-01-15 13:04 | Occ Therapy Progress Note ---
Therapy Progress Note Will hold treatment this date due to change in medical status. [id number] IVANIA LLANOS OT January 15, 2021 13:04
--- NOTE | 2021-01-15 13:06 | OPERATIVE REPORT ---
DATE OF SERVICE: 01/14/2021 ATTENDING PRIMARY CARE PHYSICIAN: Dr. Araiza. ADMITTING PHYSICIAN: Dr. Gonzalez INDICATIONS FOR PROCEDURE: The patient is an 85-year-old female, who presented from a long-term acute care facility on 01/03/2021 for abdominal pain, shortness of breath as well as hypoxemia. She was also found to have urinary tract infection and septicemia and admitted to the ICU. She did slowly improve over the time; however, continued to have respiratory issues requiring high-flow humidified oxygen. She did continue to improve and was then recently changed to swing bed status. She did develop abdominal pain. She also did have abdominal pain. Upon initial admission and a CT scan was performed, which did show thickening of the sigmoid colon as well as diverticulosis. The patient was evaluated with increased leukocytosis as well as worsening abdominal pain and she underwent a CT scan, which did show significant amount of free air. The patient is a poor surgical candidate and also a DNR status and she was agreeing to percutaneous drain placement; however, no general anesthesia or any invasive surgery. We will proceed with placement of a percutaneous peritoneal drain. DESCRIPTION OF PROCEDURE: The abdomen was prepped and draped in a standard surgical fashion. A 1% lidocaine was then used to anesthetize the overlying skin, subcutaneous tissue, muscle layers as well as the peritoneal lining. A vertical skin incision was made using an 11 blade just left of the umbilicus. The catheter and trocar were then introduced withdrawing of the air and the catheter was advanced over the trocar without any resistance. Air as well as a slightly turbid yellow fluid was evacuated from the peritoneal cavity. The catheter was then covered with a sterile gauze followed by a large Op-Site. Catheter was contained to band tubing and a gravity drainage bag. The patient tolerated the procedure well. We will continue monitoring the drain output as well as IV antibiotics and bowel rest with clear liquid diet. Likely, etiology is perforated peptic ulcer disease versus a perforated diverticulitis and with conservative management, hopefully, either issue will wall off and heal on their own without any surgical intervention. Job ID: [id number] DocumentID: [id number] Dictated Date: 01/15/2021 12:07:26 Senior Accounting Analyst Date: 01/15/2021 13:05:33 Dictated By: CHELA BEATTY MD
--- NOTE | 2021-01-15 14:56 | Progress Note - Cardiology ---
Cardiology SOAP Progress Note Subjective: Gen weakness and malaise present, unchanged Abd distention has improved No cp or palp or syncope or shortness of breath No n/v/d No swelling Objective: I&O/Vital Signs 01/15/21 01/15/21 01/15/21 06:36 08:10 08:55 Temp 36.5 Pulse 72 Resp 18 B/P (MAP) 128/77 (94) Pulse Ox 94 93 94 O2 Delivery High Flow N/C High Flow N/C High Flow N/C O2 Flow Rate 6.00 6.00 4.00 01/15/21 00:00 Intake Total 1190 ml Balance 1190 ml Constitutional: AAO x 3, well-developed, well-nourished, other (appear weak and tired) Respiratory: No accessory muscle use; other (fair to good air entry, reduced at the bases) Cardiovascular: irregularly irregular, S1 and S2, systolic murmur (soft NOAH at card base) Gastrointestional: tender, distended; No guarding, No rebound; audible bowel sounds, other (drain in place) Extremities: pedal edema (mild, bilateral); No clubbing, No cyanosis Neurologic/Psychiatric: oriented x 3, other (moves all limbs equally) Skin: warm/dry; No cyanosis, No rash on exposed areas, No ulcerations on exposed areas Results/Procedures: Labs Laboratory Tests 01/14/21 18:16: Prothrombin Time 24.9H, INR Comment 2.2H 01/15/21 05:21: Prothrombin Time 20.4H, INR Comment 1.7H, White Blood Count 12.0H, Red Blood Count 3.83, Hemoglobin 10.2L, Hematocrit 34L, Mean Corpuscular Volume 90, Mean Corpuscular Hemoglobin 27, Mean Corpuscular Hemoglobin Concent 30L, Red Cell Distribution Width 17.6H, Platelet Count 231, Mean Platelet Volume 9.3, Immature Granulocyte % (Auto) 1, Neutrophils (%) (Auto) 91H, Lymphocytes (%) (Auto) 2L, Monocytes (%) (Auto) 6, Eosinophils (%) (Auto) 0, Basophils (%) (Auto) 0, Neutrophils # (Auto) 11.0H, Lymphocytes # (Auto) 0.2L, Monocytes # (Auto) 0.7, Eosinophils # (Auto) 0.0, Basophils # (Auto) 0.0, Immature Granulocyte # (Auto) 0.1, Sodium Level 138, Potassium Level 3.6, Chloride Level 94L, Carbon Dioxide L evel 35H, Anion Gap 9, Blood Urea Nitrogen 35H, Creatinine 0.90, Estimat Glomerular Filtration Rate 59, BUN/Creatinine Ratio 39, Glucose Level 160H, Calcium Level 8.6, Corrected Calcium 9.6, Total Bilirubin 0.7, Aspartate Amino Transf (AST/SGOT) 21, Alanine Aminotransferase (ALT/SGPT) 17, Alkaline Phosphatase 45, Total Protein 5.7L, Albumin 2.7L A/P: Assessment: Large pneumoperitoneum consistent with a perforation of hollow viscus (on CT abdomen on 01/14/21). - s/p paracentesis drain on 01-14-21 by surgical services Acute Respiratory failure in December 2020, likely multifactorial d/t acute on chronic exacerbation of COPD and [id number] diastolic CHF - Echo by Dr. Crook on 01-04-21- shows LVEF 55-65%. Reduced RV systolic function with increased systolic pressure. LA and RA severely dilated. PASP 70-75 mmHg. TR. Chronic AF - rate controlled Chronic OAC with coumadin - currently supra-therapeutinc INR - received FFP - INR now sub-therapeutic H/o IVC filter (noted on CT of the abdomen of 01-03-21) Plan: * Multiple symptoms, multisystem involvement, complex management, guarded prognosis * Warfarin currently being held - advise Lovenox if ok with surgical services for stroke prophylaxis until INR is therapeutic * Cardiac risk for non-cardiac surgery is estimated to be intermediate to high. I discussed this in detail with the patient and her family, and answered questions in detail. They understand * Monitor labs closely * Pt and family desire conservative tx only and do not wish to have any surgical procedures. S/P paracentesis drain per surgical services CHERELLE ABAD MD FACP FAC CCDS January 15, 2021 14:56
[2021-01-15] MEDS: HYDROcodone/APAP 7.5 MG/325 MG (LORTAB, LORCET PLUS) TABLET PO PRN (15:28)
--- NOTE | 2021-01-15 15:46 | Progress Note ---
Subjective Date Seen by a Provider: January 15, 2021 Time Seen by a Provider: 15:00 Subjective/Events-last exam doing ok. tolerating clears. pain controlled. no fever/chills. minimal drain output. Objective Exam Vital Signs Date Time Temp Pulse Resp B/P (MAP) Pulse Ox O2 Delivery O2 Flow Rate FiO2 01/15/21 08:55 94 High Flow N/C 4.00 01/15/21 08:10 93 High Flow N/C 6.00 01/15/21 06:36 36.5 72 18 128/77 (94) 94 High Flow N/C 6.00 01/14/21 21:00 95 High Flow N/C 6.00 01/14/21 18:19 36.3 83 18 93 High Flow N/C 6.00 I & O 01/15/21 07:00 Intake Total 1790 ml Output Total 30 ml Balance 1760 ml Capillary Refill : Less Than 3 Seconds General Appearance: No Apparent Distress HEENT: PERRL/EOMI Neck: Full Range of Motion Respiratory: Chest Non Tender, Lungs Clear Cardiovascular: Regular Rate, Rhythm Gastrointestinal: normal bowel sounds, non tender, soft Extremity: Normal Capillary Refill Neurologic/Psychiatric: Alert Skin: Normal Color Lymphatic: No Adenopathy Results Lab Laboratory Tests 01/14/21 18:16: Prothrombin Time 24.9H, INR Comment 2.2H 01/15/21 05:21: Prothrombin Time 20.4H, INR Comment 1.7H, White Blood Count 12.0H, Red Blood Count 3.83, Hemoglobin 10.2L, Hematocrit 34L, Mean Corpuscular Volume 90, Mean C orpuscular Hemoglobin 27, Mean Corpuscular Hemoglobin Concent 30L, Red Cell Distribution Width 17.6H, Platelet Count 231, Mean Platelet Volume 9.3, Immature Granulocyte % (Auto) 1, Neutrophils (%) (Auto) 91H, Lymphocytes (%) (Auto) 2L, Monocytes (%) (Auto) 6, Eosinophils (%) (Auto) 0, Basophils (%) (Auto) 0, Neutrophils # (Auto) 11.0H, Lymphocytes # (Auto) 0.2L, Monocytes # (Auto) 0.7, Eosinophils # (Auto) 0.0, Basophils # (Auto) 0.0, Immature Granulocyte # (Auto) 0.1, Sodium Level 138, Potassium Level 3.6, Chloride Level 94L, Carbon Dioxide Level 35H, Anion Gap 9, Blood Urea Nitrogen 35H, Creatinine 0.90, Estimat Glomerular Filtration Rate 59, BUN/Creatinine Ratio 39, Glucose Level 160H, Calcium Level 8.6, Corrected Calcium 9.6, Total Bilirubin 0.7, Aspartate Amino Transf (AST/SGOT) 21, Alanine Aminotransferase (ALT/SGPT) 17, Alkaline Phosphatase 45, Total Protein 5.7L, Albumin 2.7L Assessment/Plan Assessment/Plan Assess & Plan/Chief Complaint acute on chronic perforated viscus of unknown source. patient DNR and not candidate for surgery. s/p small perc pigtail cath placement. cont bowel rest and IV abx. CHELA BEATTY MD January 15, 2021 15:46
[2021-01-15 18:00] VITALS: BP 112/67
[2021-01-15] MEDS ORDERED: warFARin 2 MG (COUMADIN) TAB PO SCH (18:00)
[2021-01-15] MEDS: LATANOPROST 0.005% (XALATAN) OPHTH SOLN 2.5 ML OU SCH (19:56)
[2021-01-16] MEDS: NYSTATIN ORAL SUSP 5 ML UDC PO SCH ×3 (00:09→11:22)
[2021-01-16] MEDS: PIPERACILLIN/TAZOBACTAM (BULK) 4.5 GM in NS (IVPB) 100 ML IV SCH ×2 (00:10→08:32)
[2021-01-16] MEDS: fentaNYL INJ 100 MCG/2 ML AMP IVP PRN ×3 (03:44→11:20)
[2021-01-16 05:14] LABS: HEMATOCRIT 36 % (35-52); HEMOGLOBIN 10.6 g/dL (11.5-16.0); MEAN CORPUSCULAR HEMOGLOBIN 27 pg (25-34); MEAN CORPUSCULAR HGB CONC 30 g/dL (32-36); MEAN CORPUSCULAR VOLUME 91 fL (80-99); MEAN PLATELET VOLUME 9.7 fL (9.0-12.2); PLATELET COUNT 227 10^3/uL (130-400); WHITE BLOOD COUNT 9.6 10^3/uL (4.3-11.0)
[2021-01-16 05:21] LABS: CHLORIDE 94 MMOL/L (98-107); POTASSIUM 4.2 MMOL/L (3.6-5.0); SODIUM 137 MMOL/L (135-145)
[2021-01-16 05:22] LABS: CALCIUM 8.9 MG/DL (8.5-10.1)
[2021-01-16 05:23] LABS: GLUCOSE 143 MG/DL (70-105)
[2021-01-16 05:24] LABS: CARBON DIOXIDE 33 MMOL/L (21-32)
[2021-01-16 05:27] LABS: BUN/CREATININE RATIO 40; CREATININE SERUM 0.77 MG/DL (0.60-1.30); GFR ESTIMATED > 60
[2021-01-16] MEDS: LEVOTHYROXINE 75 MCG (LEVOTHROID) TABLET PO SCH (05:57)
[2021-01-16] MEDS: GABAPENTIN 100 MG (NEURONTIN) CAP PO SCH ×2 (05:57→12:54)
[2021-01-16 06:08] VITALS: BP 135/83
[2021-01-16] MEDS: polyethylene glycoL POWDER 17 GM (MIRALAX) PACK PO SCH (08:33)
[2021-01-16] MEDS: SIMvastatin 20 MG (ZOCOR) TAB PO SCH (08:33)
[2021-01-16] MEDS: DIGOXIN 0.125 MG (LANOXIN) TAB PO SCH (08:33)
[2021-01-16] MEDS: KCL 20 MEQ TAB (K-DUR) PO SCH (08:33)
[2021-01-16] MEDS: PANTOPRAZOLE 40 MG (PROTONIX) TAB PO SCH (08:34)
[2021-01-16] MEDS ORDERED: FUROSEMIDE 40 MG (LASIX) TAB PO SCH (09:00)
--- NOTE | 2021-01-16 09:02 | Progress Note - Cardiology ---
Cardiology SOAP Progress Note Subjective: Sitting up in bed C/O fatigue C/O SOB, which is about the same as yesterday No c/o CP Objective: I&O/Vital Signs Constitutional: AAO x 3, well-developed, well-nourished, other (appear weak and tired) Respiratory: No accessory muscle use; other (fair to good air entry, reduced at the bases) Cardiovascular: irregularly irregular, S1 and S2, systolic murmur (soft NOAH at card base) Gastrointestional: tender, distended; No guarding, No rebound; audible bowel sounds, other (drain in place) Extremities: pedal edema (mild, bilateral); No clubbing, No cyanosis Neurologic/Psychiatric: oriented x 3, other (moves all limbs equally) Skin: warm/dry; No cyanosis, No rash on exposed areas, No ulcerations on exposed areas Results/Procedures: Labs A/P: Assessment: Large pneumoperitoneum consistent with a perforation of hollow viscus (on CT abdomen on 01/14/21). - s/p paracentesis drain on 01-14-21 by surgical services Acute Respiratory failure in December 2020, likely multifactorial d/t acute on chronic exacerbation of COPD and [id number]-[id number] diastolic CHF - Echo by Dr. Crook on 01-04-21- shows LVEF 55-65%. Reduced RV systolic function with increased systolic pressure. LA and RA severely dilated. PASP 70-75 mmHg. TR. Chronic AF - rate controlled Chronic OAC with coumadin - currently supra-therapeutinc INR - received FFP - INR now sub-therapeutic - warfarin has been resumed H/o IVC filter (noted on CT of the abdomen of 01-03-21) Plan: * Multiple symptoms, multisystem involvement, complex management, guarded prognosis * Warfarin has been resumed - advise Lovenox if ok with surgical/medical services for stroke prophylaxis until INR is therapeutic * Cardiac risk for non-cardiac surgery is estimated to be intermediate to high. I discussed this in detail with the patient and her family, and answered questions in detail. They understand * Monitor labs closely * Pt and family desire conservative tx only and do not wish to have any surgical procedures. S/P paracentesis drain per surgical services MILA CANNON January 16, 2021 09:02
[2021-01-16] MEDS ORDERED: ENOXAPARIN 40 MG/0.4 ML (LOVENOX) SYR SQ SCH (09:15)
[2021-01-16] MEDS: DOCUSATE SODIUM 100 MG (COLACE) CAP PO SCH (10:02)
--- NOTE | 2021-01-16 10:02 | Physical Therapy Daily Note ---
PT Daily Note-Current Subjective Patient in bed pre tx, agrees to PT, has 7/10 pain in abdomen Appearance Patient in recliner post tx with nurse call, phone, tray, all needs met, nurse tech notified of pain. Mental Status Patient Orientation: Person, Unable to Assess Transfers SCALE: Activities may be completed with or without assistive devices. 4-Qiolbnatco-lhurjvk completes the activity by him/herself with no assistance from a helper. 5-Set-up or Clean-up Assistance-helper sets up or cleans up; patient completes activity. Barton assists only prior to or following the activity. 4-Supervision or Touching Assistance-helper provides verbal cues and/or touching/steadying and/or contact guard assistance as patient completes activity. Assistance may be provided throughout the activity or intermittently. 3-Partial/Moderate Assistance-helper does LESS THAN HALF the effort. Barton li fts, holds or supports trunk or limbs, but provides less than half the effort. 2-Substantial/Maximal Assistance-helper does MORE THAN HALF the effort. Barton lifts or holds trunk or limbs and provides more than half the effort. 5-Bxpgxfdaf-sezfzc does ALL the effort. Patient does none of the effort to complete the activity. Or, the assistance of 2 or more helpers is required for the patient to complete the activity. If activity was not attempted, code reason: 7-Patient Refused. 9-Not Applicable-not attempted and the patient did not perform the activity before the current illness, exacerbation or injury. 10-Not Attempted due to Environmental Limitations-(lack of equipment, weather restraints, etc.). 88-Not Attempted due to Medical Conditions or Safety Concerns. Roll Left & Right (QC): 2 Lying to Sitting/Side of Bed(Q: 2 Sit to Stand (QC): 3 Chair/Zti-fd-Fgzyl Xfer(QC): 3 Patient needs assist with walker during turning. Patient was able to sit on the side of the bed, stand, and start ambulating, after about 5' she needs to use the restroom, commode is placed behind her and she has a BM, nurse tech cleans patient after standing back up, dependent for brief don/doff, ambulates another 5' before sitting in recliner. Gait Training Distance: 5'x2 Gait Persons Needed: 1 Gait Assistive Device: FWW Slumped posture, antalgic, needs assist guiding walker, patient had a lot of difficulty just ambulating 5' this morning, she barely made to the recliner. Treatments bed mobility and transfers, ambulation, toileting Assessment Current Status: Poor Progress patient moaned in pain during whole tx PT [employer] Goals Senior Living Goals PT Senior Living Goals Time Frame: Feb 02, 2021 Roll Left & Right (QC): 6 Sit to Lying (QC): 6 Lying-Sitting on Side/Bed(QC): 6 Sit to Stand (QC): 6 Chair/Jqj-cu-Xyobu Xfer(QC): 6 Toilet Transfer (QC): 6 Car Transfer (QC): 6 (simulated) Does the Patient Walk: Yes Walk 10 feet (QC): 6 Walk 50ft with 2 Turns (QC): 6 Walk 150 ft (QC): 6 Walking 10ft on Uneven Surface: 6 1 Step (curb) (QC): 9 4 Steps (QC): 9 12 Steps (QC): 9 Picking up an Object (QC): 6 (seated) Wheel 50 feet with 2 turns (QC: 88 Type: Manual Wheel 150 feet: 88 Type: Manual PT Plan Problem List Problem List: Activity Tolerance, Functional Strength, Safety, Balance, Gait, Transfer, Bed Mobility, ROM Treatment/Plan Treatment Plan: Continue Plan of Care Treatment Plan: Bed Mobility, Education, Functional Activity Violette, Functional Strength, Gait, Safety, Therapeutic Exercise, Transfers Treatment Duration: Feb 02, 2021 Frequency: 6 times per week Estimated Hrs Per Day: .25 hour per day Patient and/or Family Agrees t: Yes Safety Risks/Education Patient Education: Gait Training, Transfer Techniques, Correct Positioning, Safety Issues Teaching Recipient: Patient Teaching Methods: Demonstration, Discussion Response to Teaching: Reinforcement Needed Time/GCodes Time In: 917 Time Out: 938 Total Billed Treatment Time: 21 Total Billed Treatment 1 visit FA 21' CHUY ROSA PT January 16, 2021 10:02
[2021-01-16 10:54] VITALS: BP 135/83
[2021-01-16] MEDS: HYDROcodone/APAP 7.5 MG/325 MG (LORTAB, LORCET PLUS) TABLET PO PRN (11:21)
--- NOTE | 2021-01-16 12:25 | Progress Note - Cardiology ---
Cardiology SOAP Progress Note Subjective: Notes moderately severe abdominal pain Shortness of breath with exertion Gen malaise and weakness No cp or palp or syncope Objective: I&O/Vital Signs 01/16/21 01/16/21 01/16/21 01/16/21 06:08 09:00 10:54 10:54 Temp 36.6 36.6 Pulse 75 74 Resp 18 B/P (MAP) 135/83 (100) Pulse Ox 93 94 95 95 O2 Delivery High Flow N/C High Flow N/C Nasal Cannula O2 Flow Rate 6.00 2.00 4.00 01/15/21 23:59 Intake Total 460 ml Output Total 90 ml Balance 370 ml Constitutional: AAO x 3, well-developed, well-nourished, other (appear weak and tired) Respiratory: No accessory muscle use; other (fair to good air entry, reduced at the bases) Cardiovascular: irregularly irregular, S1 and S2, systolic murmur (soft NOAH at card base) Gastrointestional: tender, distended; No guarding, No rebound; audible bowel sounds, other (drain in place) Extremities: pedal edema (mild, bilateral); No clubbing, No cyanosis Neurologic/Psychiatric: oriented x 3, other (moves all limbs equally) Skin: warm/dry; No cyanosis, No rash on exposed areas, No ulcerations on exposed areas Results/Procedures: Labs Laboratory Tests 01/16/21 05:02: White Blood Count 9.6, Red Blood Count 3.94, Hemoglobin 10.6L, Hematocrit 36, Mean Corpuscular Volume 91, Mean Corpuscular Hemoglobin 27, Mean Corpuscular Hemoglobin Concent 30L, Red Cell Distribution Width 17.6H, Platelet Count 227, Mean Platelet Volume 9.7, Sodium Level 137, Potassium Level 4.2, Chloride Level 94L, Carbon Dioxide Level 33H, Anion Gap 10, Blood Urea Nitrogen 31H, Creatinine 0.77, Estimat Glomerular Filtration Rate > 60, BUN/Creatinine Ratio 40, Glucose Level 143H, Calcium Level 8.9 Laboratory Tests 01/15/21 05:21 01/16/21 05:02 A/P: Assessment: Large pneumoperitoneum consistent with a perforation of hollow viscus (on CT abdomen on 01/14/21). - s/p paracentesis drain on 01-14-21 by Surgical services - abd pain managment is with the Med and Surg svces Acute Respiratory failure in December 2020, likely multifactorial d/t acute on chronic exacerbation of COPD and iaxzf-zr-vkcgcyj diastolic CHF - Echo by Dr. Crook on 01-04-21- shows LVEF 55-65%. Reduced RV systolic function with increased systolic pressure. LA and RA severely dilated. PASP 70 -75 mmHg. TR. Chronic AF - rate controlled Chronic OAC with coumadin - currently supra-therapeutinc INR - received FFP - INR now sub-therapeutic - warfarin has been resumed H/o IVC filter (noted on CT of the abdomen of 01-03-21) Plan: * Complex management due to multiple symptoms, multisystem involvement. Guarded prognosis * Warfarin has been resumed - advise Lovenox if ok with surgical/medical services for stroke prophylaxis until INR is therapeutic * Cardiac risk for non-cardiac surgery is estimated to be intermediate to high. I discussed this in detail with the patient and her family, and answered questions in detail. They understand * Monitor labs closely CHERELLE ABAD MD FACP FAC CCDS January 16, 2021 12:24
[2021-01-16] MEDS: CALCIUM CARBONATE 500 MG (TUMS) TAB.CHEW PO PRN (12:44)
[2021-01-16] MEDS: LORazepam INJ 2 MG/ML (ATIVAN) VIAL IVP PRN (12:44)
--- NOTE | 2021-01-16 12:58 | Occ Therapy Progress Note ---
Therapy Progress Note OT attempted to see pt. Nursing working with pt. Pt. upset and crying. Not feeling well or doing well this date. Will hold pt. at this time and attempt back as time allows. 1, visit 1120 IVANIA LLANOS OT January 16, 2021 12:58
[2021-01-16] MEDS ORDERED: SIMETHICONE 80 MG (MYLICON) CHEW PO SCH (14:00)
--- NOTE | 2021-01-16 14:08 | Progress Note ---
Subjective Subjective/Events-last exam Afebrile, feeling okay, still having pain. Is having bowel movements. Objective Exam Last Set of Vital Signs Vital Signs Date Time Temp Pulse Resp B/P (MAP) Pulse Ox O2 Delivery O2 Flow Rate FiO2 01/16/21 10:54 36.6 74 95 01/16/21 10:54 Nasal Cannula 4.00 01/16/21 06:08 18 135/83 (100) Capillary Refill : Less Than 3 Seconds I&O Intake and Output 01/15/21 23:59 Intake Total 1060 ml Output Total 120 ml Balance 940 ml Intake Oral 1060 ml Drainage Total 120 ml # Voids 8 General: Mild Distress, Other (drowsy but arousable) Lungs: Clear to Auscultation, Normal Air Movement Abdomen: Other (distended) Psych/Mental Status: Mental Status NL Results/Procedures Lab Laboratory Tests 01/16/21 05:02: White Blood Count 9.6, Red Blood Count 3.94, Hemoglobin 10.6L, Hematocrit 36, Mean Corpuscular Volume 91, Mean Corpuscular Hemoglobin 27, Mean Corpuscular Hemoglobin Concent 30L, Red Cell Distribution Width 17.6H, Platelet Count 227, Mean Platelet Volume 9.7, Sodium Level 137, Potassium Level 4.2, Chloride Level 94L, Carbon Dioxide Level 33H, Anion Gap 10, Blood Urea Nitrogen 31H, Creatinine 0.77, Estimat Glomerular Filtration Rate > 60, BUN/Creatinine Ratio 40, Glucose Level 143H, Calcium Level 8.9 01/16/21 13:10: Lab Scanned Report Transfusion Reaction Form Assessment/Plan Assessment/Plan (1) Peritoneal free air Status: Acute Assessment & Plan: Worsening abdominal pain with known diverticulitis from inpatient CT, repeat CT today showed diffuse peritoneal air with unclear source, suspect perforated diverticula. Discussed with Dr. Ortiz, he does not feel ex lap would be tolerated with her underlying comorbidities and hypoxia, and she and family also agree they would not want this type of surgery. Considering drain placement. Continue Zosyn, management per Dr. Ortiz. 01/16 drain placed and patient reports some symptomatic improvement, but exam remains the same and pain persists. She still does not want surgery, we discussed if abdominal problems worsen, may need to discuss comfort goals at some point if surgery is not wanted or felt to be a viable option. 01/17 continued pain, but is tolerating PO and passing stool. Continuing zosyn and abdominal drain. (2) Acute on chronic respiratory failure with hypoxia and hypercapnia Status: Acute Assessment & Plan: Near baseline now on 6 lpm supplemental oxygen, was requiring more significant support while inpatient, now on SWB. 01/15 on baseline 4 lpm supplemental oxygen today (3) UTI (urinary tract infection) Status: Acute Assessment & Plan: Originally admitted with sepsis secondary to UTI, now on swing bed status, is being treated still with Zosyn. Urine cx with citrobacter and enterococcus faecalis. (4) Congestive heart failure Status: Chronic Assessment & Plan: On daily IV lasix currently. Change to PO lasix Qualifiers: Qualified Codes: I50.32 - Chronic diastolic (congestive) heart failure (5) Hypoxemic respiratory failure, chronic Status: Chronic Assessment & Plan: Typically on 4-6 lpm supplemental oxygen (6) Atrial fibrillation Status: Chronic Assessment & Plan: On coumadin, currently on hold due to supratherapeutic INR. 01/15 resume coumadin, INR down to 1.7 (7) Normocytic anemia Status: Chronic (8) Abdominal pain Status: Acute (9) Diverticulitis Status: Acute Assessment & Plan: On Zosyn, see CT results above. (10) Rheumatoid arthritis Status: Chronic (11) Pulmonary hypertension Status: Chronic (12) Hypertension Status: Chronic Qualifiers: Qualified Codes: I10 - Essential (primary) hypertension (13) DVT prophylaxis Status: Acute Assessment & Plan: On coumadin for a fib, but INR was supratherapeutic, coumadin held and FFP x 2 given as well as PO vitamin K on 01/14. 01/15 resuming coumadin VONDA PROCTOR MD January 16, 2021 14:07
--- NOTE | 2021-01-16 14:09 | Progress Note ---
Subjective Date Seen by a Provider: January 16, 2021 Time Seen by a Provider: 13:00 Subjective/Events-last exam doing ok. still has some abd pain and distention. tolerating clears and now having loose BM's. Objective Exam Vital Signs Date Time Temp Pulse Resp B/P (MAP) Pulse Ox O2 Delivery O2 Flow Rate FiO2 01/16/21 10:54 36.6 74 95 01/16/21 10:54 95 Nasal Cannula 4.00 01/16/21 09:00 94 High Flow N/C 2.00 01/16/21 06:08 36.6 75 18 135/83 (100) 93 High Flow N/C 6.00 01/15/21 20:41 92 High Flow N/C 4.00 01/15/21 19:12 91 High Flow N/C 4.00 01/15/21 18:00 37.0 73 20 112/67 (82) 91 High Flow N/C 6.00 I & O 01/16/21 06:59 Intake Total 560 ml Output Total 715 ml Balance -155 ml Capillary Refill : Less Than 3 Seconds General Appearance: No Apparent Distress HEENT: PERRL/EOMI Neck: Full Range of Motion Respiratory: Chest Non Tender, Decreased Breath Sounds Cardiovascular: Regular Rate, Rhythm Gastrointestinal: normal bowel sounds, soft, distended, tenderness Extremity: Normal Capillary Refill Neurologic/Psychiatric: Alert, Oriented x3 Skin: Normal Color Lymphatic: No Adenopathy Results Lab Laboratory Tests 01/16/21 05:02: White Blood Count 9.6, Red Blood Count 3.94, Hemoglobin 10.6L, Hematocrit 36, Mean Corpuscular Volume 91, Mean Corpuscular Hemoglobin 27, Mean Corpuscular Hemoglobin Concent 30L, Red Cell Distribution Width 17.6H, Platelet Count 227, Mean Platelet Volume 9.7, Sodium Level 137, Potassium Level 4.2, Chloride Level 94L, Carbon Dioxide Level 33H, Anion Gap 10, Blood Urea Nitrogen 31H, Creatinine 0.77, Estimat Glomerular Filtration Rate > 60, BUN/Creatinine Ratio 40, Glucose Level 143H, Calcium Level 8.9 01/16/21 13:10: Lab Scanned Report Transfusion Reaction Form Assessment/Plan Assessment/Plan Assess & Plan/Chief Complaint acute on chronic perforated viscus of unknown source. WBC normalized patient DNR and not candidate for surgery. s/p small perc pigtail cath placement. cont bowel rest and IV abx. CHELA BEATTY MD January 16, 2021 14:09
[2021-01-16] MEDS ORDERED: GLYCOPYRROLATE 0.2 MG/ML (ROBINUL) 2 ML VIAL IV PRN (15:30)
[2021-01-16] MEDS ORDERED: BISACODYL 10 MG SUPP (DULCOLAX) PR PRN (15:30)
[2021-01-16] MEDS ORDERED: ONDANSETRON 4 MG/2 ML (SDV) Z0FRAN IVP PRN (15:30)
[2021-01-16] MEDS ORDERED: ARTIFICAL TEARS 0.4 ML UNIT DOSE (REFRESH PLUS) OU PRN (15:30)
[2021-01-16] MEDS ORDERED: RT-ALBUTEROL/IPRATROPIUM 3 ML (DUONEB) VIAL INH PRN (15:30)
[2021-01-16] MEDS ORDERED: LORazepam INJ 2 MG/ML (ATIVAN) VIAL IVP PRN (15:30)
[2021-01-16] MEDS ORDERED: PROMETHAZINE INJ 25 MG/ML (PHENERGAN) AMP IVP PRN (15:30)
[2021-01-16] MEDS ORDERED: ACETAMINOPHEN 650 MG SUPP (TYLENOL) PR PRN (15:30)
[2021-01-16] MEDS ORDERED: SALIVA STIMULANT MOUTH SPRAY (BIOTENE) 1.5 OZ MM PRN (15:30)
--- NOTE | 2021-01-16 15:50 | Progress Note ---
Subjective Subjective/Events-last exam Called by nurse, patient appears to be actively dying. Daughter at bedside and tearful but understanding. Rachel is breathing quickly and shallow, does not respond to name or touch, but occasionally makes a noise. Objective Exam Last Set of Vital Signs Vital Signs Date Time Temp Pulse Resp B/P (MAP) Pulse Ox O2 Delivery O2 Flow Rate FiO2 01/16/21 10:54 36.6 74 95 01/16/21 10:54 Nasal Cannula 4.00 01/16/21 06:08 18 135/83 (100) Capillary Refill : Less Than 3 Seconds I&O Intake and Output 01/16/21 00:00 Intake Total 1060 ml Output Total 120 ml Balance 940 ml Intake Oral 1060 ml Drainage Total 120 ml # Voids 8 General: Mild Distress Lungs: Other (shallow respirarations, opening and closing mouth with each breath) Heart: Regular Rate Abdomen: Other (distended) Skin: Other (pale, cyanotic, mottling, diaphoretic) Neuro: Other (does not open eyes or move to voice or touch) Results/Procedures Lab Laboratory Tests 01/16/21 05:02: White Blood Count 9.6, Red Blood Count 3.94, Hemoglobin 10.6L, Hematocrit 36, Mean Corpuscular Volume 91, Mean Corpuscular Hemoglobin 27, Mean Corpuscular Hemoglobin Concent 30L, Red Cell Distribution Width 17.6H, Platelet Count 227, Mean Platelet Volume 9.7, Sodium Level 137, Potassium Level 4.2, Chloride Level 94L, Carbon Dioxide Level 33H, Anion Gap 10, Blood Urea Nitrogen 31H, Creatinine 0.77, Estimat Glomerular Filtration Rate > 60, BUN/Creatinine Ratio 40, Glucose Level 143H, Calcium Level 8.9 01/16/21 13:10: Lab Scanned Report Transfusion Reaction Form Assessment/Plan Assessment/Plan (1) Impending shock of cardiovascular system Status: Acute Assessment & Plan: Suspect related to underlying intraabdominal pathology, see below. (2) Peritoneal free air Status: Acute Assessment & Plan: Worsening abdominal pain with known diverticulitis from inpatient CT, repeat CT today showed diffuse peritoneal air with unclear source, suspect perforated diverticula. Discussed with Dr. Ortiz, he does not feel ex lap would be tolerated with her underlying comorbidities and hypoxia, and she and family also agree they would not want this type of surgery. Considering drain placement. Continue Zosyn, management per Dr. Ortiz. 01/16 drain placed and patient reports some symptomatic improvement, but exam remains the same and pain persists. She still does not want surgery, we discussed if abdominal problems worsen, may need to discuss comfort goals at some point if surgery is not wanted or felt to be a viable option. 01/17 continued pain, but is tolerating PO and passing stool. Continuing zosyn and abdominal drain. 01/17 pm- suspect intraabdominal worsening pathology with severe pain, followed shortly by unresponsiveness and multiple signs of impending . Discussed with daughter at bedside, she confirms patient would not want intubated or coded, and they want us to focus on comfort at this time. Comfort care orders initiated, cutting and creasing press operator and palliative nurse at bedside. (3) Acute on chronic respiratory failure with hypoxia and hypercapnia Status: Acute Assessment & Plan: Near baseline now on 6 lpm supplemental oxygen, was requiring more significant support while inpatient, now on SWB. 01/15 on baseline 4 lpm supplemental oxygen today (4) UTI (urinary tract infection) Status: Acute Assessment & Plan: Originally admitted with sepsis secondary to UTI, now on swing bed status, is being treated still with Zosyn. Urine cx with citrobacter and enterococcus faecalis. (5) Congestive heart failure Status: Chronic Assessment & Plan: On daily IV lasix currently. Change to PO lasix Qualifiers: Qualified Codes: I50.32 - Chronic diastolic (congestive) heart failure (6) Hypoxemic respiratory failure, chronic Status: Chronic Assessment & Plan: Typically on 4-6 lpm supplemental oxygen (7) Atrial fibrillation Status: Chronic Assessment & Plan: On coumadin, currently on hold due to supratherapeutic INR. 01/15 resume coumadin, INR down to 1.7 (8) Normocytic anemia Status: Chronic (9) Abdominal pain Status: Acute (10) Diverticulitis Status: Acute Assessment & Plan: On Zosyn, see CT results above. (11) Rheumatoid arthritis Status: Chronic (12) Pulmonary hypertension Status: Chronic (13) Hypertension Status: Chronic Qualifiers: Qualified Codes: I10 - Essential (primary) hypertension (14) DVT prophylaxis Status: Acute Assessment & Plan: On coumadin for a fib, but INR was supratherapeutic, coumadin held and FFP x 2 given as well as PO vitamin K on 01/14. 01/15 resuming coumadin VONDA PROCTOR MD January 16, 2021 15:50
[2021-01-16 15:54] VITALS: BP 76/48
--- NOTE | 2021-01-17 08:08 | Therapy Team Discharge Summary ---
Therapy Discharge Summary Discharge Recommendations Date of Discharge January 16, 2021 at 18:14 Physical Therapy Patient 01/16/21 Occupational Therapy Decreased Activ Tolerance, Decreased UE Strength, Dependent Transfers, Edema, Impaired Bed Mobility, Impaired Funct Balance, Impaired I ADL's, Impaired Self- Care Skills PT Longterm Goals Longterm Goals PT Mammographer Goals Time Frame: Feb 02, 2021 Roll Left to Right (QC): 6 Sit to Lying (QC): 6 Lying-Sitting on Side/Bed(QC): 6 Sit to Stand (QC): 6 Chair/[id number] Xfer(QC): 6 Car Transfer (QC): 6 (simulated) Does the Patient Walk: Yes Walk 10 feet (QC): 6 Walk 10ft-Uneven Surface(QC): 6 Walk 50ft with 2 Turns (QC): 6 Walk 150 ft (QC): 6 Wheel 50 feet with 2 turns (QC: 88 1 Step (curb) (QC): 9 4 Steps (QC): 9 12 Steps (QC): 9 Picking up an Object (QC): 6 (seated) OT Longterm Goals Mammographer Goals Time Frame: Jan 22, 2021 Eating (QC): 6 Oral Hygiene (QC): 6 Shower/Bathe Self (QC): 4 Upper Body Dressing (QC): 5 Lower Body Dressing (QC): 4 On/Off Footwear (QC): 5 Toileting Hygiene (QC): 6 Toilet/Commode Transfer (QC): 6 Additional Goals: 1-Demonstrate ADL Tasks, 2-Verbalize Understanding, 3- ImproveStrength/Violette 1=Demonstrate adherence to instructed precautions during ADL tasks. 2=Patient will verbalize/demonstrate understanding of assistive device s/modifications for ADL. 3=Patient will improve strength/tolerance for activity to enable patient to perform ADL's. EFRAIN CHERY PT January 17, 2021 08:08
--- NOTE | 2021-01-17 09:13 | Therapy Team Discharge Summary ---
Therapy Discharge Summary Discharge Recommendations Date of Discharge January 16, 2021 at 18:14 Occupational Therapy Pt. . PT Fpc Goals Fpc Goals PT Fpc Goals Time Frame: Feb 02, 2021 Roll Left to Right (QC): 6 Sit to Lying (QC): 6 Lying-Sitting on Side/Bed(QC): 6 Sit to Stand (QC): 6 Chair/[id number]-Kuofw Xfer(QC): 6 Car Transfer (QC): 6 (simulated) Does the Patient Walk: Yes Walk 10 feet (QC): 6 Walk 10ft-Uneven Surface(QC): 6 Walk 50ft with 2 Turns (QC): 6 Walk 150 ft (QC): 6 Wheel 50 feet with 2 turns (QC: 88 1 Step (curb) (QC): 9 4 Steps (QC): 9 12 Steps (QC): 9 Picking up an Object (QC): 6 (seated) OT Fpc Goals Fpc Goals Time Frame: Jan 22, 2021 Eating (QC): 6 (not met) Oral Hygiene (QC): 6 (not met) Shower/Bathe Self (QC): 4 (not met) Upper Body Dressing (QC): 5 (not met) Lower Body Dressing (QC): 4 (not met) On/Off Footwear (QC): 5 (not met) Toileting Hygiene (QC): 6 (not met) Toilet/Commode Transfer (QC): 6 (not met) Additional Goals: 1-Demonstrate ADL Tasks, 2-Verbalize Understanding, 3- ImproveStrength/Violette 1=Demonstrate adherence to instructed precautions during ADL tasks. 2=Patient will verbalize/demonstrate understanding of assistive devices/modifications for ADL. 3=Patient will improve strength/tolerance for activity to enable patient to perform ADL's. IVANIA LLANOS OT January 17, 2021 09:13
--- NOTE | 2021-01-17 19:53 | Discharge Summary ---
Discharge Summary Hospital Course Problems/Diagnosis: (1) Peritoneal free air Status: Acute Assessment & Plan: Worsening abdominal pain with known diverticulitis from inpatient CT, repeat CT today showed diffuse peritoneal air with unclear source, suspect perforated diverticula. Discussed with Dr. Ortiz, he does not feel ex lap would be tolerated with her underlying comorbidities and hypoxia, and she and family also agree they would not want this type of surgery. Considering drain placement. Continue Zosyn, management per Dr. Ortiz. 01/16 drain placed and patient reports some symptomatic improvement, but exam remains the same and pain persists. She still does not want surgery, we discussed if abdominal problems worsen, may need to discuss comfort goals at some point if surgery is not wanted or felt to be a viable option. 01/17 continued pain, but is tolerating PO and passing stool. Continuing zosyn and abdominal drain. 01/17 pm- suspect intraabdominal worsening pathology with severe pain, followed shortly by unresponsiveness and multiple signs of impending . Discussed with daughter at bedside, she confirms patient would not want intubated or coded, and they want us to focus on comfort at this time. Comfort care orders initiated, ornamental metal erector and palliative nurse at bedside. Discussed further with second daughter on her arrival including concerns about fentanyl, reassured that patient had tolerated the same medication several times previously with no oversedation. Discussed with son on the phone after his arrival when family was requesting to check labs and CT and reviewed course from Thursday until this afternoon, when I asked if they wanted to proceed with labs and CT to clarify/confirm our suspicion, he stated he did not think that was necessary in light of the situation and stated he did think we were doing the right thing. Patient shortly after. (2) Acute on chronic respiratory failure with hypoxia and hypercapnia Status: Acute Assessment & Plan: Near baseline now on 6 lpm supplemental oxygen, was requiring more significant support while inpatient, now on SWB. 01/15 on baseline 4 lpm supplemental oxygen today (3) UTI (urinary tract infection) Status: Acute Assessment & Plan: Originally admitted with sepsis secondary to UTI, transferred to swing bed and was treated with Zosyn until comfort care orders initiated. Urine cx with citrobacter and enterococcus faecalis. (4) Congestive heart failure Status: Chronic Assessment & Plan: Treated with IV lasix most of stay. Qualifiers: Qualified Codes: I50.32 - Chronic diastolic (congestive) heart failure (5) Hypoxemic respiratory failure, chronic Status: Chronic Assessment & Plan: Typically on 4-6 lpm supplemental oxygen baseline. (6) Atrial fibrillation Status: Chronic Assessment & Plan: Had supratherapeutic INR and coumadin held for a period and FFP and vitamin K required, resumed warfarin when INR down to 1.7, continued until comfort care initiated. (7) Normocytic anemia Status: Chronic (8) Abdominal pain Status: Acute (9) Diverticulitis Status: Acute Assessment & Plan: Treated with Zosyn, see CT results above. (10) Rheumatoid arthritis Status: Chronic (11) Pulmonary hypertension Status: Chronic (12) Hypertension Status: Chronic Qualifiers: Qualified Codes: I10 - Essential (primary) hypertension Hospital Course Date of Admission: January 08, 2021 at 10:58 Admission Diagnosis : Family Physician/Provider: Marija Araiza MD Date of Discharge: 01/17/21 Discharge Diagnosis: See problem list Hospital Course: See problem list, patient . Assessment/Pt DC Instructions Patient . Discharge Physical Examination Allergies: Coded Allergies: Sulfa (Sulfonamide Antibiotics) (Verified Allergy, Unknown, 04/30/20) Date of Admission January 08, 2021 at 10:58 Date of Discharge January 16, 2021 at 18:14 Discharge Time: 18:14 Comfort Measures/ End of Life Care: Comfort Measures Advance Care discuss with: patient, family member (s) Date of : January 16, 2021 Time of : 18:14 Copy Copies To 1: MARIJA ARAIZA MD, BETHANY N MD January 17, 2021 19:50
== END 2021-01-16 18:14 | disposition expired | DRG 689 ==
LOC: 4TH 10:58
PROVIDERS: ADMIT Internal Medicine; ATTEND Family Medicine
PROC: 0W9G30Z Drainage of Peritoneal Cavity with Drainage Device, Percutaneous Approach (ICD-10-PCS; principal; 2021-01-14)
DX: N39.0 Urinary tract infection, site not specified (principal); J96.21 Acute and chronic respiratory failure with hypoxia; J96.22 Acute and chronic respiratory failure with hypercapnia; I50.32 Chronic diastolic (congestive) heart failure; K57.20 Diverticulitis of large intestine with perforation and abscess without bleeding; I48.20 Chronic atrial fibrillation, unspecified; J44.9 Chronic obstructive pulmonary disease, unspecified; Z66 Do not resuscitate; Z51.5 Encounter for palliative care; I11.0 Hypertensive heart disease with heart failure; Z79.01 Long term (current) use of anticoagulants; F03.90 Unspecified dementia, unspecified severity, without behavioral disturbance, psychotic disturbance, mood disturbance, and anxiety; D64.9 Anemia, unspecified; M06.9 Rheumatoid arthritis, unspecified; I27.20 Pulmonary hypertension, unspecified; Z99.81 Dependence on supplemental oxygen; B95.2 Enterococcus as the cause of diseases classified elsewhere; B96.89 Other specified bacterial agents as the cause of diseases classified elsewhere
CPT/HCPCS: 36415; 74018; 74019; 74177; 76705; 80048; 80053; 81000; 82150; 82947; 83605; 83690; 84145; 85007; 85025; 85027; 85610; 85652; 86900; 86901; 94640; 94760